=== PATIENT | female | born 1950 | race Caucasian/White ===

== ENCOUNTER → 2017-10-07 13:39 | Outpatient (CLI) | payer MEDICARE, OTHER, SELFPAY ==
--- NOTE | 2017-10-07 13:43 | BI_ITS ---
MAMMOGRAPHY - BILATERAL SCREENING REASON FOR EXAM: Female, 67 years old. Routine annual screening examination. PERTINENT HISTORY: Aunt with breast cancer. TECHNIQUE: Digital bilateral breast dexter (3D mammographic acquisition) in the CC and MLO projections. 2-D mediolateral oblique (MLO) and craniocaudad (CC) views of both breasts were obtained. CAD: Full Field Digital Mammography with Computer Added Detection was performed. COMPARISON: Comparison is made with prior study dated February 09, 2015 and September 03, 2012. FINDINGS: Breast Composition: There are scattered areas of fibroglandular density. There are no dominant masses or suspicious calcifications. Stable scattered calcifications in both breasts. No focal cluster is seen. Stable benign-appearing bilateral axillary lymph nodes. No other significant abnormalities are identified. There has been no significant change since the prior study. BI/SCREENING MAMM (CAD), BILAT IMPRESSION: Stable bilateral screening mammogram. Yearly follow-up mammogram recommended. (A) ASSESSMENT CATEGORY: BIRADS Category 2: Benign. A letter regarding these results will be sent to the patient by the facility within 30 days. Approximately 10% of breast cancers are not detected by mammography. A normal mammogram should not delay biopsy of a clinically suspicious abnormality. [id number] Electronically Signed: Abdulkadir Martell MD at 15:33 EDT Tel [phone], Service support ,
== END ==
DX: Z12.31 Encounter for screening mammogram for malignant neoplasm of breast (principal)
CPT/HCPCS: 77063; 77067

== ENCOUNTER → 2017-10-15 12:34 | Outpatient (CLI) | payer MEDICARE, OTHER, SELFPAY ==
[2017-10-15 12:54] VITALS: PULSE 103; PULSE 106; PULSE 107; PULSE 110; PULSE 74; PULSE 83; PULSE 91; PULSE 97; O2SAT 91; O2SAT 93; O2SAT 95; O2SAT 96
--- NOTE | 2017-10-16 08:01 | WT_ITS ---
PSN 6 Minute Walk Test - 6 Minute Walk Test 6 Minute Walk Test: 6 Minute Walk Test PSN:6-Minute Walk Test Start: 10/15/17 12: 53 Freq: Status: Active Protocol: [id number] Document 10/15/17 12:54 FR (Rec: 10/15/17 12:57 FR [id number]) 6 Minute Walk Test Date Performed 10/15/17 Time Performed 12:30 Height 4 ft 7 in Weight: 157 lb Weight in Pounds 157.[address]: Mary Stevenson Assistive device used: Walker Pre-test Oxygen Delivery Method Room Air Pulse Ox (%) 96 Pulse Rate (60-100 beats/min) 74 Dyspnea Shane Scale (0-10) 4 Exertion Shane Scale (6-20) 10 1st minute Oxygen Delivery Method Room Air Pulse Ox (%) 93 Pulse Rate (60-100 beats/min) 91 2nd minute Oxygen Delivery Method Room Air Pulse Ox (%) 91 Pulse Rate (60-100 beats/min) 97 3rd minute Oxygen Delivery Method Room Air Pulse Ox (%) 91 Pulse Rate (60-100 beats/min) 103 H 4th minute Oxygen Delivery Method Room Air Pulse Ox (%) 93 Pulse Rate (60-100 beats/min) 107 H 5th minute Oxygen Delivery Method Room Air Pulse Ox (%) 95 Pulse Rate (60-100 beats/min) 106 H 6th minute Oxygen Delivery Method Room Air Pulse Ox (%) 95 Pulse Rate (60-100 beats/min) 110 H Dyspnea Shane Scale (0-10) 4 Exertion Shane Scale (6-20) 12 Post-test Oxygen Delivery Method Room Air Pulse Ox (%) 95 Pulse Rate (60-100 beats/min) 83 Full Laps Walked 18 Partial Lap, Number of Tiles Walked 11 Total Distance Walked (ft) 1073 - Interpretation Interpretation: The patient ambulated 1073 feet over the course of 6 minutes on room air with use of a walker. Pretesting oxygen saturation was noted to be 96% on room air. With ambulation, the lesly oxygen saturation was 91%. In addition to evidence of exertional hypoxia, the patient did develop physiologic tachycardia with exertion. - Recommendations Recommendations: There is no indication for the use of supplemental oxygen at this time. However , close interval follow-up is recommended given the degree of oxygen desaturation noted during this study.
== END ==
PROVIDERS: Visit Provider Nurse Practitioner Acute Care
DX: J44.9 Chronic obstructive pulmonary disease, unspecified (principal)
CPT/HCPCS: 94618

== ENCOUNTER → 2017-10-26 17:08 | Outpatient (CLI) | payer MEDICARE, OTHER, SELFPAY ==
--- NOTE | 2017-10-26 17:17 | RAD_ITS ---
STUDY: X-RAY - LUMBAR SPINE REASON FOR EXAM: Female, 67 years old. Bilateral leg pain. Back pain. TECHNIQUE: 3 view(s) of the lumbar spine were obtained. COMPARISON: None FINDINGS: There is a mildly exaggerated lumbar lordosis. There is no substantial scoliosis. There is mild anterolisthesis of L4 and L5. The alignment is otherwise preserved. There is multilevel endplate spondylosis of the lumbar vertebrae. There is sclerosis at the L1-2 disc space with marked narrowing. There is multi-level degenerative disc disease with multi-level disc space narrowing. There is no evidence of acute fracture or loss of vertebral axial height. There is atherosclerotic calcification of the abdominal aorta without a demonstrated aneurysm. Cholecystectomy clips are seen in the right upper quadrant. RAD/Lumbar Spine 2 or 3 Views IMPRESSION: Degenerative changes of the spine, as detailed above. Electronically Signed: Jesse Don DO at 19:01 EDT Tel [phone], Service support ,
== END ==
PROVIDERS: Visit Provider Anesthesiology Pain Medicine
DX: M54.9 Dorsalgia, unspecified (principal); M79.606 Pain in leg, unspecified
CPT/HCPCS: 72100

== ENCOUNTER 2017-12-22 14:00 | Outpatient (RCR) | payer MEDICARE, OTHER, SELFPAY ==
--- NOTE | 2017-12-09 09:26 | HP.PTEVAL_ITS ---
Patient's Visit Information BINA GOLDSTEIN is a 67 year old F referred to Physical Therapy by Laura Stevens with a diagnosis of low back and R leg pain. Date of Evaluation: 11/26/17 Physical Therapist: Jose Ramon Seay - Visit Plan Frequency: 2x /Week Duration: 4 Weeks Plan: Try to progress ex as able . Asses how pt tolerated the ES RX next session and what relief it gave her. - Subjective Subjective: Pt. is here today for her initial evaluation with diagnosis of low back and R leg pain. Symptoms started 44 years ago when she first fell. Pt. reports difficulty sleeping secondary to pain. Pt. does having occassional N/T in both legs. 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 Symptoms worsen: walking, lifting, sitting for extended periods of time. SYmptoms improve:nothing, I just live with it. Pt. was trying exercise classes until they became too painful to complete. Pt. does report RLE weakness and imbalance. No changes in B/B. Pt. did have xray, but pt. is unsure of results. No MRI yet. Pt. did have cortizone injection a few weeks ago, postiive results. Pt. reports I do okay as long as I take my time. Pt. is hopeful to reduce symptoms in order to get back to all ADLs and recreational activities without limitations. - Pain R leg Pain Intensity (Out of 10): 6 Pain Intensity Range: 4, 8 Lumbar spine Pain Intensity (Out of 10): 6 Pain Intensity Range: 4, 10 - Objective POSTURE: Pt. has FH posture, rounded shoulders, overall slouched posture, sway back in stance. PALPATION: Pt. has increased pain at lumbar erector spinea bilaterally, increased pain at T10-S1 spinous process with spring testing ( hypomobility noted throughout). ROM: LUMBAR SPINE: flexion- min loss increase NW, ext mod loss increase NW, SB R min loss increase NW, SB L min loss increase NW, R rotation mod loss increase NW, L rotation mod loss increase NW. Pt. has increased pain with all lumbar motions. MMT: RLE- ankle/knee 5/5 throughout; hip- 4/5, abd 4/5, ext 4+/5. LLE_ ankle/knee 5/5 throughout; hip- 4+/5, throughout. Core- poor. GAIT: Pt. ambualtes with antalgic pattern. Pt. has increased postural sway bilaterally, reports increased pain during R stance phase. STAIRS: PT. completes with step to pattern with BHR, increased pain throughout. - Goals Goal 1:: Pt. to be I with HEP. Goal Time Frame: 4-6 Weeks Goal 2:: Pt. to have increased core and hip strength by 1/2 garde throughout. Goal Time Frame: 4-6 Weeks Goal 3:: Pt. to ambulate 300+ ft. with 1-2/10 pain in lumbar spine and R leg. Goal Time Frame: 4-6 Weeks Goal 4:: Pt. to sleep throughout the night with 0-2/10 pain in lumbar spine and R leg. Goal Time Frame: 4-6 Weeks Goal 5:: Pt. to complete all ADLs with 0-2/10 pain in lumbar spine and RLE. Goal Time Frame: 4-6 Weeks - Rehabilitation Potential Physical Therapy Diagnosis: Pt. has signs and symptoms consistent with low back and R leg pain. Pt. has increased muscle spasming, poor posture, decreased core and hip strength. Pt. would benefit from PT ot increase lumbar ROM, increased BLE and core strength and improve stability with gait. Rehabilitation Potential: Fair - Anticipated Interventions Patient/Client Instruction: Educate patient on: Condition, Plan of Care, Risk Factors, Benefits of Fitness Program For the Purpose of:: To improve decision making, To facilitate caregiver knowledge, To improve self management, To prevent re-injury, To improve ability to perform tasks related to life management, To improve tolerance to ADL's Therapeutic Exercise to Include: Strength training, Power training, Body mechanics, Postural training, Flexibilty training, Gait and locomotor training, Passive ROM, Active ROM, Dynamic Lumbar Stabilization, Tom Exercises For the Purpose of:: To decrease pain, To increase ROM, To improve nutrient delivery to tissue, To increase oxygenation perfusion, To improve muscle performance and motor function, To improve ability to perform ADL's, To increase tolerance to activity/condition/position, To improve gait and locomotor functions, To improve health of tissue, To decrease soft tissue restriction, To improve endurance, To improve balance Manual Therapy Techniques to Include: Petrissage, Trigger point massage, Mobilization, Functional dry needling, Soft tissue mobilization For the Purpose of:: To decrease pain, To increase ROM, To improve nutrient delivery to tissue, To increase oxygenation perfusion, To improve muscle performance and motor function IF ES: Yes Cryotherapy (ice pack, ice massage): Yes Thermo therapy (hot pack): Yes Ultrasound (thermal/non thermal): Yes For the Purpose of:: To decrease pain, To increase ROM Thank you for the opportunity to evaluate your patient. For Medicare and Medicare HMO plans, please review the plan of care and approve it. It will need to be FAXED BACK to us at [phone] for Medicare purposes. Please let me know if there are questions or concerns regarding this plan of care. Physician Signature: Date:
--- NOTE | 2018-01-04 11:56 | HP.PTDCSUM ---
HP - PT D/C Summary It has been my pleasure to treat BINA GOLDSTEIN under orders from Laura Stevens, for the diagnosis of low back and R leg pain for a total of 9 visit(s). Discharge Date: 12/22/17 Please see the following information for a summary of their discharge status. - Subjective Subjective: Pt. reports being about 50% better overall. Pt. reports at times I do really well, and other times my back really bothers me. Pt. reports being HEP compliant with all exercises given to her at this point in time. Pt. reports having greatest relief with TENS unit. - Pain R leg Pain Intensity (Out of 10): 3 Lumbar spine Pain Intensity (Out of 10): 3 - Overall Improvement % Improvement: 50 - Objective Objective/Function: Pt more tolerant of exercises and stretches. Pt reported having 0/10 LBP after ex's today. Improving. - Goals Goal 1:: Pt. to be I with HEP. Goal Progress: Goal Met Goal 2:: Pt. to have increased core and hip strength by 1/2 garde throughout. Goal Progress: Goal Met Goal 3:: Pt. to ambulate 300+ ft. with 1-2/10 pain in lumbar spine and R leg. Goal Progress: Progressing Goal 4:: Pt. to sleep throughout the night with 0-2/10 pain in lumbar spine and R leg. Goal Progress: Progressing Goal 5:: Pt. to complete all ADLs with 0-2/10 pain in lumbar spine and RLE. Goal Progress: Progressing - Plan Plan: LUMBAR ROM- flexion nil/min loss NE, ext mod loss icnrease NW, SB min loss bilat NE, rotation min loss bilat NE. Pt. has normal hip ROM, but continues to have tight B HS. MMT- RLE- ankle 5/5 throughout; knee- ext 4/5, flexion 4/5; hip- flexion 4/5, adb 4/5, ext 4/5. LLE- ankle 5/5 throughout; knee- ext 4/5, flexion 4/5; hip- flexion 4/5, abd 4/5, ext 4/5. COre strength poor+. GAIT: Pt is able to ambulate without AD 500+ ft. this date, but 3-4/10 pain in lumbar spine. Pt. is progressing with flexion based exercises and core strengthening. Pt. has used TENS unit with positive results and would benefit from a personal unit for home use. - D/C Information Discharge Comments: Pt. was seen for her low back and R leg pain. Pt. is only having pain in R hip and low back at this point in time. Pt. has progressed with flexion based exercises and core strengthening. Pt. also had decent relief with use of TENS unit. Pt. requested having home unit. I put in request with physician to see if insurance would cover. Pt. will be DC from PT to [facility] for core strengthening and flexion based exercises. If there are questions or concerns regarding this patient's physical therapy, please feel free to call me at [phone]. Thank you for the referral of this patient. Sincerely, Jose Ramon Seay
== END 2017-12-22 19:00 | disposition home or self-care (01) ==
LOC: PT 14:00
PROVIDERS: Visit Provider Anesthesiology Pain Medicine
DX: M54.9 Dorsalgia, unspecified (principal); M79.606 Pain in leg, unspecified
CPT/HCPCS: 97014; 97110; 97162; G0283

== ENCOUNTER 2018-02-17 12:47 | Inpatient (IN) | payer MEDICARE, OTHER, SELFPAY ==
[2018-02-17] VITALS (15 sets, daily range): BP systolic 150–183; BP diastolic 59–96; PULSE 70–113; RESP 12–30; TEMP 36.3–37; O2SAT 94–99; BMI 39.4; BMI 37.8
--- NOTE | 2018-02-17 13:44 | ED.VISSUMM ---
- ER Visit Summary Date of Service: 02/17/18 Chief Complaint: Shortness of breath History of Present Illness: The patient is a 67 F history of insulin-dependent diabetes, hypertension, COPD. Uses BiPAP at home and sleep. Normally not on O2. States last few days with the hot humid weather she has had increasing shortness of breath. Treated herself this morning with a nebulizer. Still feels short of breath. Nonproductive cough. No fever. No chest pain. No leg pain or swelling. No hemoptysis. No DVT nor PE history. No risk factors. Physical Examination: Older female vital signs are stable her pulse ox is 94% when I am in the room at 89. Off of O2. H EENT exam unremarkable. Neck nontender. Lungs coarse breath sounds. Prolonged expiratory phase. Scattered wheezes. No rales or rhonchi. Equal symmetrical. Heart regular rate and rhythm no murmur rate of soft nontender. Moving all 4 extremities. Calves nontender, no edema nor cords. Neurologically she is awake alert with no focal motor deficits. Rectal exam is brown stool no gross blood. No melena. Done with a female nurse present in the room Test Results: Chest x-ray chronic changes the radiologist is read mild pulmonary edema these may be chronic changes. EKG sinus rhythm rate of 93 with a bifascicular block. Unchanged from her prior EKG from December 2014. CBC does show an anemia with a globe at 9.4 which is trending down over the last several years. Chemistries are unremarkable creatinine is 1. Gap is 10. Troponin is slightly elevated 0.068 which may be up a cardiac event more likely from her COPD and hypoxia. Emergency Department Course and Treatment: Dyspnea history of COPD. Will be treated with IV Solu-Medrol and aerosol treatments. Treatment Plan: Patient is doing better after her aerosols and IV Solu-Medrol repeat exam at 1558. I discussed with her and family and are comfortable with the admission. I have already spoken to the hospitalist about the admission. Disposition: admission Impression: Acute exacerbation of COPD Abnormal troponin Hypoxia Acute on chronic anemia This note was generated with [employer] dictation software. It may contain incorrect words, spelling, and punctuation that were not noted in review of the chart prior to signing ED Disposition - Plan for ED Patient: Chief Complaint: Shortness of Breath Referrals: [facility] [Primary Care Provider] -
[2018-02-17] MEDS: Ipratropium/Albuterol Sulfate 3 ML AMPUL.NEB INHALATION (13:58)
[2018-02-17] MEDS: Albuterol 2.5 MG/3 ML VIAL.NEB. INHALATION ×2 (13:59→19:27)
[2018-02-17 14:19] LABS: Absolute Lymphocyte Count 1.35 X10^3/ul (0.83-4.51); Absolute Neutrophil Count 8.3 X10^3/uL (2.0-7.7); Basophil% 0.7 % (0-1); Eosinophils% 1.9 % (0-5); Hematocrit 30.3 % (37-47); Hemoglobin 9.4 g/dl (12.0-15.0); Lymphocyte # 1.35 X10^3/ul (4.0); Mean Corpuscular Hgb 29.4 pg (27.0-32.0); Mean Corpuscular Volume 94.7 fL (81-99); Mean Platelet Vol. 9.2 fl (6.2-12.0); Monocyte% 4.4 % (0-10); Neutrophil % 79.8 % (47-70); Platelet Count 316 K/mm3 (150-450); RBC Distribution Width CV 13.6 % (11.6-14.6); White Blood Count 10.4 K/mm3 (4.4-11.0)
[2018-02-17 14:20] LABS: Basophil# 0.07 X10^3/uL; Monocyte# 0.46 X10^3/uL
[2018-02-17 14:21] LABS: POSITIVE COUNT NO; POSITIVE DIFFERENTIAL NO; POSITIVE MORPHOLOGY NO
[2018-02-17 14:34] LABS: Anion Gap 10 (5-15); BUN 26 mg/dL (7-18); BUN/Creat Ratio 23.9 RATIO (10-20); Calcium,Total 8.8 mg/dL (8.5-10.1); Chloride 105 mmol/L (98-107); Creatinine, Serum 1.09 mg/dL (0.55-1.02); EST Glomerular Filtration Rate 53 mL/min (>60); Est Glom Filt Rate - Afr Amer 64 mL/min (>60); Estimated Creatinine Clearance 60.88 ml/min; Glucose 244 mg/dL (74-106); Potassium 4.4 mmol/L (3.5-5.1); Sodium Level 140 mmol/L (136-145)
[2018-02-17] MEDS: MethylPREDNISolone 125 MG/2 ML Vial IV (14:47)
--- NOTE | 2018-02-17 15:59 | NURSING ---
DR BEAVER FOR DR NICE
--- NOTE | 2018-02-17 16:06 | NURSING ---
MED SURG COPD FLARE, HYPOXIA, ABNORMAL TROP, ANEMIA SD
--- NOTE | 2018-02-17 16:15 | PCM.HP.STD ---
<Bryce Barney - Last Filed: 02/17/18 16:15> Problem List (1) COPD (chronic obstructive pulmonary disease) Status: Acute (2) CHF (congestive heart failure) Status: Acute (3) Obesity Status: Chronic (4) [place] (obstructive sleep apnea) Status: Chronic (5) Hyperlipidemia Status: Chronic (6) Type II diabetes mellitus Status: Chronic History of Present Illness Date of Admission: 02/17/18 Chief Complaint: SOB The patient is a 67 year old F with a PmHx of COPD pt of Dr. Mason, [place] on bipap, DMt2, HLD, HTN, who presents to the ER with 1 day hx of SOB. She woke up from sleep very SOB and wheezing. She tried to use her aerosols (has nebulizer) with no relief. She did not feel SOB prior to today. She has a cough but only with nebulizer treatment, and this is common for her -= it is nonproductive. No fever or chills. She cannot lay flat due to SOB. She also has had chest discomfort today described as a 5/10 midsternal tightness, nonradiating. She has mild LE edema. No dizziness, LH, no palpitations. She denies a hx of CAD or CHF. She had a stress test several years ago that was reportedly negative. She does have [place] and uses a BiPAP at night - reportedly compliant. [] Past Medical History Past Medical History (Chronic Problems): Chronic Problems (Last Reviewed 09/17/17 @ 18:16 by Mary Stevenson NP-[place]) Obesity (Chronic) [place] (obstructive sleep apnea) (Chronic) Morbid obesity (Chronic) Hyperlipidemia (Chronic) Seasonal allergies (Chronic) Depressive disorder (Chronic) Arthritis (Chronic) Hypoxia (Chronic) Asthma (Chronic) Chronic respiratory failure (Chronic) Type II diabetes mellitus (Chronic) Medical History: Medical History (Last Reviewed 09/17/17 @ 18:16 by Mary Stevenson NP-C) Morbid obesity (Chronic) E66.01 Hyperlipidemia (Chronic) E78.5 Seasonal allergies (Chronic) J30.2 Depressive disorder (Chronic) F32.9 Arthritis (Chronic) M19.90 Hypoxia (Chronic) R09.02 Asthma (Chronic) J45.909 Chronic respiratory failure (Chronic) J96.10 Chest pain (Acute) R07.9 COPD (chronic obstructive pulmonary disease) (Chronic) J44.9 Type II diabetes mellitus (Chronic) E11.9 Allergies meperidine HCl [From Demerol] Allergy (Verified 09/17/17 13:12) Other Penicillins Allergy (Verified 09/17/17 13:12) Rash Home Medications: Ambulatory Orders Medication Instructions Recorded Acetaminophen [Tylenol Tablet] 650 mg PO Q4H PRN PRN #0 tab 01/13/15 Atorvastatin Calcium [Lipitor] 20 mg PO QHS tab 01/13/15 Budesonide/Formoterol 160/4.5 2 puff INHALATION BID inhaler 01/13/15 [Symbicort 160/4.5 Mcg Inhaler (SP)] Ipratropium [place] 0.06% 2 spray NASAL TID PRN #0 nasal.sry 01/13/15 [ATROVENT NASAL SPRAY] Losartan Potassium [Cozaar] 25 mg PO DAILY tab 01/13/15 Nitroglycerin [Nitrostat] 0.4 mg SUBLINGUAL Q5M PRN #100 tab 01/13/15 Albuterol Aerosols [Ventolin 2.5 mg INHALATION Q4HWA.RT 02/17/18 Aerosols] Aspirin E.C. [Ecotrin] 81 mg PO DAILY@0800 02/17/18 Insulin Regular, Human [Novolin R] 18 units SQ BID 02/17/18 Surgical History: Surgical History (Last Reviewed 09/17/17 @ 18:16 by KURT Blake) History of cholecystectomy (Resolved) Z90.49 History of tonsillectomy (Resolved) Z90.89 Surgical History: cholecystectomy, tonsillectomy Psychiatric History: No pertinent psych hx RADIO DISPATCHER History: No pertinent RADIO DISPATCHER history Lives: Alone Smoking Status: Never smoker Tobacco Use: Non-smoker, - - secondhand smoke exposure father and Alcohol: None Drugs: None - *Family History Maternal Family History: Family History (Last Reviewed 09/17/17 @ 18:16 by KURT Blake) Mother Hypertension Heart disease Hyperlipidemia Father Myocardial infarction Heart disease Emphysema lung Grandmother Diabetes Grandfather Epilepsia Alcoholism History Items: No pertinent history Paternal Family History: Family History (Last Reviewed 09/17/17 @ 18:16 by KURT Blake) Mother Hypertension Heart disease Hyperlipidemia Father Myocardial infarction Heart disease Emphysema lung Grandmother Diabetes Grandfather Epilepsia Alcoholism History Items: Heart Disease - Father at age of 63 because of heart attack. Review of Systems Constitutional: Denies: Chills, Fever, Weight Change HEENT: Denies: Head Aches, Sinus Congestion, Sinus Drainage Cardiovascular: Reports: Chest Tightness, Edema, Orthopnea, Paroxysmal Noc. Dyspnea. Denies: Chest Pain, Heaviness, Light Headedness, Palpitations, Syncope Respiratory: Reports: Cough, Shortness of Breath, Shortness of breath at rest, Shortness of breath upon exertion, Wheezing. Denies: Pleuritic Pain, Sputum production Gastrointestinal: Denies: Abdominal Pain, Nausea, Vomiting Genitourinary: Denies: Dysuria Musculoskeletal: Denies: Joint Pain, Joint Tenderness Skin: Denies: Rash, Wounds Neurological: Denies: Numbness, Tingling, Focal weakness Psychiatric: Denies: Anxiety, Depression, Homicidal Ideations, Suicidal Ideations Hematologic/ Lymphatic: Denies: Easy Bruising, Easy Bleeding VTE Information - Inpt Only VTE Present on Admission: No VTE Mechan Device Prophylaxis: None VTE Pharm Prophylaxis ordered?: Yes Patient Problems: Active and Suspected Problems (Last Reviewed 09/17/17 @ 18:16 by Mary Stevenson NP-C) CHF (congestive heart failure) (Acute) - Physical Exam General: Alert, Oriented x3, Cooperative HEENT: Atraumatic, PERRLA, EOMI, Normocephalic Neck: Supple, No JVD, Negative Carotid Bruits Lungs: Clear to auscultation, Normal air movement, Rales Cardiovascular: Regular rate, No murmurs Abdomen: Bowel Sounds Present, Soft, Non Tender Extremities: No edema, Capillary Refill Less than 3 Seconds, Edema - 1-2 + pitting edema BLE Skin: No rashes, No breakdown Musculoskeletal: No Tenderness to Palpation of Joints or Extremities Neurological: Cranial nerves II-XII grossly intact Psych/Mental Status: Normal Affect, Appropriate, Alert and oriented to time, place, person, mood and affect Vital Signs Temp Pulse Resp BP Pulse Ox 97.8 F 80 18 155/80 H 95 02/17/18 12:50 02/17/18 16:14 02/17/18 16:14 02/17/18 16:14 02/17/18 16:14 Oxygen Delivery Method Room Air Weight: 169 lb 12.095 oz Body Mass Index (BMI) 39.4 Laboratory Tests Past 24 Hrs 02/17/18 02/17/18 14:05 14:05 WBC 10.4 RBC 3.20 L Hgb 9.4 L Hct 30.3 L MCV 94.7 MCH 29.4 MCHC 31.0 L RDW 13.6 RDW Differential 47.0 H Plt Count 316 MPV 9.2 Immature Gran % (Auto) 0.200 Neut % (Auto) 79.8 H Lymph % (Auto) 13.0 L [place] % (Auto) 4.4 Eos % (Auto) 1.9 Baso % (Auto) 0.7 Absolute Neuts (auto) 8.3 H Absolute Lymphs (auto) 1.35 Total Counted Not Reportable Sodium 140 Potassium 4.4 Chloride 105 Carbon Dioxide 25.0 Anion Gap 10 BUN 26 H Creatinine 1.09 H Estim Creat Clear Calc 60.88 Est GFR (MDRD) Af Amer 64 Est GFR (MDRD) Non-Af 53 L BUN/Creatinine Ratio 23.9 H Glucose 244 H Calcium 8.8 Troponin I 0.068 H Assessment/Plan All Active Problems (Last Reviewed 09/17/17 @ 18:16 by Mary Stevenson, [employer]-C) CHF (congestive heart failure) (Acute) History of cholecystectomy (Resolved) History of tonsillectomy (Resolved) Chest pain (Acute) COPD (chronic obstructive pulmonary disease) (Acute) 1. Acute CHF exacerbation, possible COPD exacerbation - CXR c/w CHF. + orthopnea and PND, + LE edema, rales on exam, no wheezing. Start lasix. Provide solumedrol and duonebs. Check BNP, echocardiogram. No leukocytosis or fever. Measure I/O, weights, sodium/fluid restrict, Incentive spirometer. Stable on RA. 2. Chest pain - indeterminate troponin. EKG with RBBB, bifasicular block. Repeat EKG in AM. Cycle troponin. Consider stress test or cardiology c/s. Continue aspirin, statin, arb. +family hx, smoke exposure. 3. [place] - continue BiPAP 4. DMt2 with obesity - continue long acting + SSI. 5. HTN - somewhat elevated in ER, trend. 6. HLD - statin 7. Mildly elevated creatinine - trend with lasix therapy. DVT ppx: heparin DC planning: lives alone, small possibility she may need o2 homegoing This patient was seen by Bryce Barney PA-C under the supervision of Doctor Ron. <Tommy Velasquez F - Last Filed: 02/17/18 18:14> History of Present Illness The patient is a 67 year old F [] Past Medical History Medical History: Medical History (Last Reviewed 09/17/17 @ 18:16 by SHAMAR BlakeC) Morbid obesity (Chronic) E66.01 Hyperlipidemia (Chronic) E78.5 Seasonal allergies (Chronic) J30.2 Depressive disorder (Chronic) F32.9 Arthritis (Chronic) M19.90 Hypoxia (Chronic) R09.02 Asthma (Chronic) J45.909 Chronic respiratory failure (Chronic) J96.10 Chest pain (Acute) R07.9 COPD (chronic obstructive pulmonary disease) (Chronic) J44.9 Type II diabetes mellitus (Chronic) E11.9 Allergies meperidine HCl [From Demerol] Allergy (Verified 09/17/17 13:12) Other Penicillins Allergy (Verified 09/17/17 13:12) Rash Surgical History: Surgical History (Last Reviewed 09/17/17 @ 18:16 by SHAMAR BlakeC) History of cholecystectomy (Resolved) Z90.49 History of tonsillectomy (Resolved) Z90.89 - *Family History Maternal Family History: Family History (Last Reviewed 09/17/17 @ 18:16 by KURT Blake) Mother Hypertension Heart disease Hyperlipidemia Father Myocardial infarction Heart disease Emphysema lung Grandmother Diabetes Grandfather Epilepsia Alcoholism Paternal Family History: Family History (Last Reviewed 09/17/17 @ 18:16 by KURT Blake) Mother Hypertension Heart disease Hyperlipidemia Father Myocardial infarction Heart disease Emphysema lung Grandmother Diabetes Grandfather Epilepsia Alcoholism - Physical Exam Vital Signs Temp Pulse Resp BP Pulse Ox 97.3 F L 93 20 H 173/91 H 97 02/17/18 17:02 02/17/18 17:02 02/17/18 17:02 02/17/18 17:04 02/17/18 17:02 Oxygen Delivery Method Room Air Weight: 162 lb 8 oz Body Mass Index (BMI) 37.8 Laboratory Tests Past 24 Hrs 02/17/18 02/17/18 17:12 17:12 WBC 13.2 H RBC 3.27 L Hgb 9.6 L Hct 31.0 L MCV 94.8 MCH 29.4 MCHC 31.0 L RDW 13.6 RDW Differential 46.9 H Plt Count 316 MPV 9.1 Immature Gran % (Auto) 0.100 Neut % (Auto) 92.8 H Lymph % (Auto) 5.0 L [place] % (Auto) 1.4 Eos % (Auto) 0.5 Baso % (Auto) 0.2 Absolute Neuts (auto) 12.3 H Absolute Lymphs (auto) 0.66 L Total Counted Not Reportable Troponin I Pending POC Glucose 02/17/18 17:25 POC Glucose 238 H Assessment/Plan Addendum: Dr. Velasquez I personally examined the patient and reviewed the chart. I agree with the above. Patient is a 67-year-old female presenting with a 1-2 day history of shortness of breath and increased leg swelling. He states that this is a common occurrence when she gets hot and humid outside. She did notice today that she also had some wheezing earlier prior to coming to the ER. He did do a breathing treatment that she has at home and she did not feel like that helped. Denies fevers, chills but does have increased shortness of breath. General: Alert, Oriented x3, Cooperative, No apparent distress HEENT: Atraumatic, EOMI, Normocephalic Oral: Moist Mucosa Neck: Supple, No JVD Lungs: Clear to auscultation, Normal air movement, No rhonchi, No wheeze, No rales, diminished at the bases Cardiovascular: Regular rate, Regular Rhythm, Normal S1, Normal S2, No murmurs Abdomen: Soft, Non Tender, Non-Distended, No Hepato-splenomegaly Extremities: 1-2+ pitting edema, Capillary Refill Less than 3 Seconds Skin: No rashes, No breakdown Musculoskeletal: No Tenderness to Palpation of Joints or Extremities Psych/Mental Status: Normal Affect, Appropriate\ 1. Possible CHF/COPD exacerbation/Chest Pain - Will plan for an echo given the edema - Dose of IV lasix - Solumedrol 40 mg IV TID - Trend troponins, EKG is not ischemic - Will resume her home inhalers 2. DM2 - Restart her home insulin and place her on SSI given the steroids DVT: Heparin Code Visit Inpatient E&M: 13659 Init Hosp L3
[2018-02-17 17:40] LABS: Bedside Glucose 238 mg/dL (70-110)
[2018-02-17 17:52] LABS: Absolute Lymphocyte Count 0.66 X10^3/ul (0.83-4.51); Absolute Neutrophil Count 12.3 X10^3/uL (2.0-7.7); Basophil# 0.03 X10^3/uL; Basophil% 0.2 % (0-1); Eosinophil# 0.06 X10^3/uL; Eosinophils% 0.5 % (0-5); Hemoglobin 9.6 g/dl (12.0-15.0); Lymphocyte # 0.66 X10^3/ul (4.0); Mean Corpuscular Hgb 29.4 pg (27.0-32.0); Mean Corpuscular Volume 94.8 fL (81-99); Mean Platelet Vol. 9.1 fl (6.2-12.0); Monocyte# 0.18 X10^3/uL; Monocyte% 1.4 % (0-10); Neutrophil # 12.29 X10^3/uL (2.7-7.7); Neutrophil % 92.8 % (47-70); POSITIVE COUNT NO; POSITIVE DIFFERENTIAL NO; POSITIVE MORPHOLOGY NO; Platelet Count 316 K/mm3 (150-450); RBC Distribution Width CV 13.6 % (11.6-14.6); RBC Distribution Width SD 46.9 fl (35.1-43.9); Red Blood Count 3.27 M/mm3 (4.2-5.4); White Blood Count 13.2 K/mm3 (4.4-11.0)
[2018-02-17] MEDS: Furosemide 40 MG/4 ML Vial IV (18:14)
[2018-02-17] MEDS: Insulin Lispro 100 UNIT/ML INSULN.PEN SQ (18:25)
[2018-02-17] MEDS: Glucerna Shake 120 ML LIQUID PO ×2 (18:25→21:19)
[2018-02-17] MEDS: Budesonide Respules 0.5 MG/2 ML AMPUL.NEB. INHALATION (19:27)
[2018-02-17 20:59] LABS: Prothrombin Time (Protime)PT. 12.8 SECONDS (11.7-14.9)
[2018-02-17 21:00] LABS: Partial Thromboplast Time 24.9 Seconds (24.1-36.2)
--- NOTE | 2018-02-17 21:06 | NURSING ---
Critical value called to Sree Marroquin, Troponin 0.614
[2018-02-17] MEDS: Heparin Injection (Vial) 5,000 UNIT/ML VIAL 4000 UNIT IV (21:16)
[2018-02-17] MEDS: Clopidogrel Bisulfate 300 MG Tablet PO (21:17)
[2018-02-17] MEDS: 0.9% NaCl Peripheral Flush Adult/Peds IV ×2 (21:17→22:57)
[2018-02-17] MEDS: Atorvastatin Calcium 20 MG Tablet PO (21:18)
[2018-02-17] MEDS: Insulin Lispro 100 UNIT/ML INSULN.PEN 20 UNIT SC (22:15)
[2018-02-17 22:56] LABS: Bedside Glucose 459 mg/dL (70-110)
[2018-02-17] MEDS: LORazepam 2 MG/ML Syringe 0.5 MG IV (22:57)
[2018-02-18] VITALS (31 sets, daily range): BP systolic 112–172; BP diastolic 44–86; PULSE 64–102; RESP 12–24; TEMP 36.3–37.4; O2SAT 95–100; BMI 36.7
[2018-02-18 04:16] LABS: Anion Gap 9 (5-15); BUN 31 mg/dL (7-18); BUN/Creat Ratio 25.4 RATIO (10-20); Chloride 104 mmol/L (98-107); Creatinine, Serum 1.22 mg/dL (0.55-1.02); EST Glomerular Filtration Rate 47 mL/min (>60); Est Glom Filt Rate - Afr Amer 56 mL/min (>60); Estimated Creatinine Clearance 52.07 ml/min; Glucose 260 mg/dL (74-106); Partial Thromboplast Time 49.8 Seconds (24.1-36.2); Potassium 4.4 mmol/L (3.5-5.1); Sodium Level 140 mmol/L (136-145)
[2018-02-18] MEDS: 0.9% NaCl Peripheral Flush Adult/Peds IV ×2 (06:02→20:28)
[2018-02-18 07:00] LABS: Bedside Glucose 199 mg/dL (70-110)
[2018-02-18] MEDS: Albuterol 2.5 MG/3 ML VIAL.NEB. INHALATION (07:04)
[2018-02-18] MEDS: Budesonide Respules 0.5 MG/2 ML AMPUL.NEB. INHALATION ×2 (07:04→19:00)
--- NOTE | 2018-02-18 08:05 | PCM.PROGNOTE ---
Patient Problems: Active and Suspected Problems (Last Reviewed 09/17/17 @ 18:16 by Mary Stevenson NP-C) CHF (congestive heart failure) (Acute) Subjective: Chief complaint: Follow-up after admission for acute COPD exacerbation with acute on chronic hypoxic respiratory failure, probable acute CHF and ST elevation MS. Patient seen and examined. No acute events overnight. This morning, she reported that her breathing is improved. She still complaining of dry cough, minimal sputum. She denies any chest pain. At home, she has been on BiPAP at night only. She is not on home oxygen. Her symptoms started yesterday all of a sudden with shortness of breath on exertion, got worse and became even at rest and associated with dry cough. She denied fever or chills. This morning, she is afebrile, heart rate stable, blood pressure slightly elevated, pulse ox is 98% on 3 L. - Physical Exam General: Alert, Oriented x3, Cooperative, - - Moderately short of breath. HEENT: Atraumatic, PERRLA, EOMI, Normocephalic Oral: Moist Mucosa, No Gingival or Mucosal Lesions/ Ulcerations Neck: Supple, No JVD, Negative Carotid Bruits, Trachea Midline, Thyroid Normal Size and Texture Lungs: No wheeze, Diminished, Rales, Rhonchi, Short of Breath, - - Decreased breath sounds bilateral, bilateral basal crackles, rhonchi. Cardiovascular: Regular rate, Regular Rhythm, Normal S1, Normal S2, PMI Normal Abdomen: Bowel Sounds Present, Soft, Non Tender, Non-Distended, No Hepato-splenomegaly Extremities: No clubbing, No cyanosis, Edema - Trace edema. Skin: No rashes, No breakdown Lymphatic: No Cervical, Supraclavicular, or Inguinal Adenopathy Neurological: Cranial nerves II-XII grossly intact, Motor Exam 5/5 strength throughout Psych/Mental Status: Normal Affect, Appropriate, Alert and oriented to time, place, person, mood and affect Vital Signs Temp Pulse Resp BP Pulse Ox 97.3 F L 77 16 169/84 H 98 02/18/18 04:26 02/18/18 07:05 02/18/18 07:05 02/18/18 04:26 02/18/18 07:05 Oxygen Flow Rate (L/min) 3 Oxygen Delivery Method Nasal Cannula Weight: 158 lb 11.725 oz Body Mass Index (BMI) 37.8 Intake and Output for Last 24 Hours 02/16/18 02/17/18 02/18/18 23:59 23:59 23:59 Intake Total 399.7 / 399.7 59.4 / 59.4 Output Total 2550 / 2550 375 / 375 Balance -2150.3 / -2150.3 -315.6 / -315.6 Laboratory Tests Past 24 Hrs 02/17/18 02/17/18 02/17/18 17:12 17:12 20:15 WBC 13.2 H RBC 3.27 L Hgb 9.6 L Hct 31.0 L MCV 94.8 MCH 29.4 MCHC 31.0 L RDW 13.6 RDW Differential 46.9 H Plt Count 316 MPV 9.1 Immature Gran % (Auto) 0.100 Neut % (Auto) 92.8 H Lymph % (Auto) 5.0 L [place] % (Auto) 1.4 Eos % (Auto) 0.5 Baso % (Auto) 0.2 Absolute Neuts (auto) 12.3 H Absolute Lymphs (auto) 0.66 L Total Counted Not Reportable PT INR APTT Sodium Potassium Chloride Carbon Dioxide Anion Gap BUN Creatinine Estim Creat Clear Calc Est GFR (MDRD) Af Amer Est GFR (MDRD) Non-Af BUN/Creatinine Ratio Glucose Calcium Troponin I 0.659 H* 0.614 H* 02/17/18 02/18/18 02/18/18 20:15 03:34 03:34 WBC RBC Hgb Hct MCV MCH MCHC RDW RDW Differential Plt Count MPV Immature Gran % (Auto) Neut % (Auto) Lymph % (Auto) [place] % (Auto) Eos % (Auto) Baso % (Auto) Absolute Neuts (auto) Absolute Lymphs (auto) Total Counted PT 12.8 INR 1.0 APTT 24.9 49.8 H Sodium 140 Potassium 4.4 Chloride 104 Carbon Dioxide 27.0 Anion Gap 9 BUN 31 H Creatinine 1.22 H Estim Creat Clear Calc 52.07 Est GFR (MDRD) Af Amer 56 L Est GFR (MDRD) Non-Af 47 L BUN/Creatinine Ratio 25.4 H Glucose 260 H Calcium 9.0 Troponin I POC Glucose 08/30/18 08/29/18 08/29/18 06:52 21:27 17:25 POC Glucose 199 H 459 H* 238 H Clinical Impression(s) from Imaging Studies Chest X-Ray 02/17/18 13:42 IMPRESSION: Findings in keeping with a mild degree of CHF. Mild cardiomegaly. Electronically Signed: Abdulkadir Martell MD at 14:23 EDT Tel [phone], Service support , Medical Necessity - Tobacco Use Smoking Status: Never smoker Tobacco Use: Non-smoker Assessment/Plan All Active Problems (Last Reviewed 09/17/17 @ 18:16 by Mary Stevenson, MAYTE-[place]) CHF (congestive heart failure) (Acute) This is a 67 years old female patient presented to the emergency department because of shortness of breath and she was admitted as a case of acute COPD exacerbation complicated by acute on chronic hypoxic respiratory failure, found to have acute non-ST elevation MS as well as probable acute CHF. #1 acute COPD exacerbation/acute on chronic hypoxic respiratory failure: She is on bronchodilators and IV steroids as well as inhaled steroids. A chest x-ray showed probable bilateral pulmonary vascular congestion, fluid in the fissure on the right lung, mild cardiomegaly. No acute infiltrate. Patient reported some improvement in her symptoms. She is afebrile, heart rate stable, blood pressure slightly elevated, pulse ox is 98% on 3 L. She was on BiPAP overnight. Plan: Change albuterol nebulizer as needed, start DuoNeb every 4 hours, incentive spirometer, chest physiotherapy, ABG, continue other treatment, PT OT evaluation and treatment. #2 acute non-ST elevation MS: Troponin is elevated. EKG revealed normal sinus rhythm with right bundle branch block, no acute ST elevation. Patient denied any chest pain. She does not have history of CAD or CHF but she has risk factors for CAD. This might indicate underlying CAD. She is on aspirin, statins, losartan and IV heparin. 2D echocardiogram ordered. Cardiology consulted. Plan to start beta-blockers, awaiting cardiology recommendations. #3 probable acute CHF: This is based on symptoms of shortness of breath, trace edema and chest x-ray findings. She never history of CHF or cardiac disease. She was given 1 dose of IV Lasix. 2D echocardiogram ordered. Plan: We will start small dose of IV Lasix 20 mg IV twice daily, BNP, awaiting 2D echocardiogram. #4 chronic anemia: It is normocytic anemia. Hemoglobin has been around 11 g/dL since 2012, last reading was back on January,. Admission hemoglobin was 9.4 g/dL. No evidence of active bleeding. Today's hemoglobin is 9.6 g/dL. No indication for blood transfusion. Unknown hemoglobin since January,. Plan: Serum iron, TIBC, ferritin, B12, folic acid, repeat CBC tomorrow morning. #5 type 2 diabetes mellitus: Blood sugar has been fluctuating likely because of IV steroids. She is on Lantus twice daily as well as sliding scale. Plan to monitor, will check hemoglobin A1c. #6 hypertension: Blood pressure slightly elevated, continue losartan, start metoprolol as above, IV hydralazine as needed. #7 obstructive sleep apnea: Continue BiPAP at night. #8 hyperlipidemia: Continue statins. #9 DVT prophylaxis: She is on IV heparin drip. This note was generated with [employer] dictation software. It may contain incorrect words, spelling, and punctuation that were not noted in checking the note before signing. Code Visit Inpatient E&M: 70999 Subs Hosp L2
[2018-02-18] MEDS: Insulin Lispro 100 UNIT/ML INSULN.PEN SQ ×4 (08:17→21:10)
[2018-02-18] MEDS: Aspirin E.C. 81 MG Tablet PO (08:18)
[2018-02-18 09:17] LABS: Ferritin 196 ng/mL (8-252); Hemoglobin A1c 8.9 % (4.2-6.3); Iron 40 ug/dL (50-170); Iron Binding Capacity,Total 433 ug/dL (250-450); PERCENT IRON SATURATION 9.2 % (15.0-55.0)
[2018-02-18] MEDS: Clopidogrel Bisulfate 75 MG Tablet PO (10:24)
[2018-02-18] MEDS: Metoprolol Tartrate 25 MG Tablet 12.5 MG PO (10:24)
[2018-02-18] MEDS: Losartan Potassium 25 MG Tablet PO (10:25)
[2018-02-18 12:18] LABS: BNP,B-Type NATRIURETIC PEPTIDE 726.2 pg/mL (0-100)
[2018-02-18] MEDS: 0.9% Normal Saline 1,000 ML 150 ML IV (12:47)
[2018-02-18 12:55] LABS: ACT Activated Clotting Time 186 sec (74-137)
[2018-02-18 12:55] LABS: ACT Activated Clotting Time 142 sec (74-137)
[2018-02-18] MEDS: Furosemide 20 MG/2 ML VIAL IV ×2 (13:02→20:27)
[2018-02-18] MEDS: Glucerna Shake 120 ML LIQUID PO ×2 (13:55→17:22)
--- NOTE | 2018-02-18 14:13 | CRPHASE1 ---
Patient Data/Charges Mend Worker:: Lobo Ivan Refer Phase II:: Yes Phase II Referral:: [facility] Start Phase II:: after follow up visit with Cardiology Phase I Charge:: Level I - Education Risk Factors/Lifestyle Smoking Status: Never smoker Second-Hand Smoke:: No Hx Hypertension: Yes Hx Diabetes Mellitus Type 2: No Hx Dyslipidemia: Yes Hx Obesity: Yes Height: 1.4 m Weight:: 71.668 kg BMI: 36.7 Post-Menopausal: Yes Stress: Recent Risk Factor for Sedentary Lifestyle: Moderate Risk Family History: Family History (Last Reviewed 09/17/17 @ 18:16 by Mary Stevenson NP-C) Mother Hypertension Heart disease Hyperlipidemia Father Myocardial infarction Heart disease Emphysema lung Grandmother Diabetes Grandfather Epilepsia Alcoholism Family History: Heart Disease, Hypertension Laboratory Values: Cardiac Rehab Phase I Labs Hemoglobin A1c 8.9 % (4.2-6.3) H 02/18/18 05:40 Phase I Education Given On:: [place], Nutrition, Antiplatelet medication, CHF, Diabetes - Type II Issues Affecting Care:: None Knowledge of Condition:: Yes Learning Preferences: Verbal, Written, Audio/Visual, Demonstration Medical/Surgical History Angina:: Yes COPD:: Yes Asthma:: Yes [place]:: Yes Diabetes Type II:: Yes Hypertension:: Yes Dyslipidemia:: Yes Arthritis:: Yes Renal:: Yes Depression:: Yes
--- NOTE | 2018-02-18 14:17 | CRPHASE1_ITS ---
Patient Data/Charges Order Packer:: Lobo Ivan Refer Phase II:: Yes Phase II Referral:: [facility] Start Phase II:: after follow up visit with Cardiology Phase I Charge:: Level I - Education Risk Factors/Lifestyle Smoking Status: Never smoker Second-Hand Smoke:: No Hx Hypertension: Yes Hx Diabetes Mellitus Type 2: No Hx Dyslipidemia: Yes Hx Obesity: Yes Height: 1.4 m Weight:: 71.668 kg BMI: 36.7 Post-Menopausal: Yes Stress: Recent Risk Factor for Sedentary Lifestyle: Moderate Risk Family History: Family History (Last Reviewed 09/17/17 @ 18:16 by Mary Stevneson NP-C) Mother Hypertension Heart disease Hyperlipidemia Father Myocardial infarction Heart disease Emphysema lung Grandmother Diabetes Grandfather Epilepsia Alcoholism Family History: Heart Disease, Hypertension Laboratory Values: Cardiac Rehab Phase I Labs Hemoglobin A1c 8.9 % (4.2-6.3) H 02/18/18 05:40 Phase I Education Given On:: [place], Nutrition, Antiplatelet medication, CHF, Diabetes - Type II Issues Affecting Care:: None Knowledge of Condition:: Yes Learning Preferences: Verbal, Written, Audio/Visual, Demonstration Medical/Surgical History Angina:: Yes COPD:: Yes Asthma:: Yes [place]:: Yes Diabetes Type II:: Yes Hypertension:: Yes Dyslipidemia:: Yes Arthritis:: Yes Renal:: Yes Depression:: Yes
--- NOTE | 2018-02-18 14:20 | CRPH1.INST_ITS ---
General Education CAD and cardiac anatomy and function:: Patient communicates acknowledgment, Needs reinforcement Explanation of diagnoses and procedures:: Patient communicates acknowledgment, Needs reinforcement Sign/Symptoms of VT:: Patient communicates acknowledgment, Needs reinforcement Antiplatelet therapy: Patient communicates acknowledgment, Needs reinforcement Proper use of NTG-SL: Patient communicates acknowledgment, Needs reinforcement Emergency procedures and activation of EMS: Patient communicates acknowledgment , Needs reinforcement Compliance of all prescribed medications: Patient communicates acknowledgment, Needs reinforcement Smoking Patient Nicotine/Smoking Risk Factors Are:: Never smoked Recommendations Include:: Second-hand smoke recommendation Nicotine/Smoking Response Code:: Patient communicates acknowledgment, Needs reinforcement Dyslipidemia Recommendations Include:: Lipid profile not available, Reviewed NCEP/ATP guidelines, Therapeutic Lifestyle Change dietary guidelines Dyslipidemia Response Code:: Patient communicates acknowledgment, Needs reinforcement Overweight/Obesity Patient Overweight/Obesity Risk Factors Are:: Obesity - > or = 30 Recommendations Include:: Weight loss of 5-10%, Reduced calorie diet, Exercise 5 -7 times/week Overweight/Obesity:: Patient communicates acknowledgment, Needs reinforcement Hypertension Recommendations Include:: BP <130/80 if diabetic, DASH dietary guidelines, Decrease/maintain normal body weight, Moderation of ETOH Hypertension:: Patient communicates acknowledgment, Needs reinforcement Heart Disease Patient Heart Disease Risk Factors Are:: Family history of heart disease < 65 years old Recommendations Include:: Educated family members of their risk, Educated family members of importance of prevention of heart disease Heart Disease Response Code:: Patient communicates acknowledgment, Needs reinforcement Diabetes Recommendations Include:: Maintain fasting blood sugars 70-110 md/dL, Maintain HgbA1c of 6% or less, Monitor blood sugar as prescribed, Diabetic dietary guidelines, Decrease/maintain body weight Diabetes:: Patient communicates acknowledgment, Needs reinforcement Metabolic Syndrome Recommendations Include:: Patient is diabetic Metabolic Syndrome Response Code:: Not instructed Sedentary Patient Sedentary Risk Factors Are:: Lack of regular exercise Recommendations Include:: Aerobic exercise 5-7 times/week for 20-30 minutes continuously, Benefits of regular exercise, Discussed home walking program, Monitored Outpatient Cardiac Rehab Sedentary Response Code:: Patient communicates acknowledgment, Needs reinforcement Stress Recommendations Include:: Identification of stressors, and assessment of coping skills, Stress management techniques Stress Response Code:: Patient communicates acknowledgment, Needs reinforcement
[2018-02-18] MEDS: Ipratropium/Albuterol Sulfate 3 ML AMPUL.NEB INHALATION ×2 (14:30→19:00)
--- NOTE | 2018-02-18 15:54 | PCM.CONS.C ---
Problem List (1) Pulmonary hypertension Status: Acute (2) Non-STEMI (non-ST elevated myocardial infarction) Status: Acute (3) CHF (congestive heart failure) Status: Acute (4) [place] (obstructive sleep apnea) Status: Chronic (5) Hyperlipidemia Status: Chronic (6) COPD (chronic obstructive pulmonary disease) Status: Chronic Qualifiers: Reason for Consult Date of Consultation: 02/18/18 Reason for Consultation: Non-STEMI, pulmonary hypertension, LV dysfunction, chest pain, lower extremity edema, obstructive sleep apnea. 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 Patient sought medical attention last evening and [facility] ER when her shortness of breath acutely worsened. Her EKG showed normal sinus rhythm with right bundle branch block and left anterior hemiblock. Her initial troponin was 0.068, and increase to 0.659. Patient was started on IV heparin, loaded with 300 of Plavix, loaded with 4 baby aspirin, and an echocardiogram was performed this morning. This was reviewed bye myself which demonstrated what appears to be new inferior and posterior hypokinesis with an EF around 50%, moderate eccentric mitral regurgitation, mild tricuspid regurgitation, with an RVSP of approximately 77 millimeters of mercury. This is markedly worsened since her last echocardiogram several years ago. Patient underwent a diagnostic coronary angiogram given her symptoms, non-STEMI, and LV dysfunction. This demonstrated significant coronary occlusive disease in her PDA and 2 spots in her right coronary artery. In addition she had diffuse disease and a small left circumflex system of the OM and left circumflex as well as a possibly significant proximal LAD stenosis with mild to moderate calcification. Given the small caliber of her vessels,I do not believe she would benefit from multivessel bypass surgery. she patient underwent successful angioplasty and drug-eluting stenting to her PDA, distal RCA, and proximal RCA with an excellent result. Patient will return in 3 weeks time for elective PCI of her obtuse marginal, left circumflex, and FFR of her LAD. Patient's right groin was closed with a minx device.] Past Medical History Allergies/Adverse Reactions: Allergies meperidine HCl [From Demerol] Allergy (Verified 09/17/17 13:12) Other Penicillins Allergy (Verified 09/17/17 13:12) Rash Home Medications: Ambulatory Orders Medication Instructions Recorded Acetaminophen [Tylenol Tablet] 650 mg PO Q4H PRN PRN #0 tab 01/13/15 Atorvastatin Calcium [Lipitor] 20 mg PO QHS tab 01/13/15 Budesonide/Formoterol 160/4.5 2 puff INHALATION BID inhaler 01/13/15 [Symbicort 160/4.5 Mcg Inhaler (SP)] Ipratropium [place] 0.06% 2 spray NASAL TID PRN #0 nasal.sry 01/13/15 [ATROVENT NASAL SPRAY] Losartan Potassium [Cozaar] 25 mg PO DAILY tab 01/13/15 Nitroglycerin [Nitrostat] 0.4 mg SUBLINGUAL Q5M PRN #100 tab 01/13/15 Albuterol Aerosols [Ventolin 2.5 mg INHALATION Q4HWA.RT 02/17/18 Aerosols] Aspirin E.C. [Ecotrin] 81 mg PO DAILY@0800 02/17/18 Insulin Regular, Human [Novolin R] 18 units SQ BID 02/17/18 Past Medical History (Chronic Problems): Chronic Problems (Last Updated 02/18/18 @ 08:09 by Hossein Dodd MD) [place] (obstructive sleep apnea) (Chronic) Hyperlipidemia (Chronic) Seasonal allergies (Chronic) Depressive disorder (Chronic) Arthritis (Chronic) Asthma (Chronic) Chronic respiratory failure (Chronic) COPD (chronic obstructive pulmonary disease) (Chronic) Type II diabetes mellitus (Chronic) Surgical History: cholecystectomy, tonsillectomy Psychiatric History: No pertinent psych hx TREATER History: No pertinent TREATER history - *Family History Maternal Family History: Family History (Last Reviewed 09/17/17 @ 18:16 by KURT Blake) Mother Hypertension Heart disease Hyperlipidemia Father Myocardial infarction Heart disease Emphysema lung Grandmother Diabetes Grandfather Epilepsia Alcoholism History Items: No pertinent history Paternal Family History: Family History (Last Reviewed 09/17/17 @ 18:16 by KURT Blake) Mother Hypertension Heart disease Hyperlipidemia Father Myocardial infarction Heart disease Emphysema lung Grandmother Diabetes Grandfather Epilepsia Alcoholism History Items: Heart Disease - Father at age of 63 because of heart attack. Lives: Alone Smoking Status: Never smoker Tobacco Use: Non-smoker Alcohol: None Drugs: None Review of Systems - Review of Systems General: Denies: Fever, Night Sweats, Fatigue Cardiovascular: Reports: Shortness of Breath, Shortness of Breath at Rest, Shortness of Breath with Exertion, Peripheral Edema. Denies: Chest Discomfort, Orthopnea, PND, Palpitations, Lightheadedness, Dizziness, Near Syncope, Syncope Respiratory: Denies: Cough, Sputum Production, Hemoptysis Gastrointestinal: Denies: Hematemesis, Hematochezia, Melena Genitourinary: Denies: Dysuria, Hematuria Skin: Denies: Rash Subjectve: Patient laying down flat, complains of dry hacking cough. No acute distress. Objective: Vital Signs Temp Pulse Resp BP Pulse Ox 99.4 F H 86 21 H 129/50 H 98 02/18/18 14:00 02/18/18 15:00 02/18/18 15:00 02/18/18 15:00 02/18/18 15:00 Oxygen Flow Rate (L/min) 3 Oxygen Delivery Method Nasal Cannula Weight: 158 lb Body Mass Index (BMI) 37.8 Intake and Output for Last 24 Hours 02/16/18 02/17/18 02/18/18 23:59 23:59 23:59 Intake Total 399.7 / 399.7 75.4 / 75.4 Output Total 2550 / 2550 375 / 375 Balance -2150.3 / -2150.3 -299.6 / -299.6 General: Awake, Alert, Oriented x 3 HEENT: PERRL, EOMI, Sclera Non Icteric Neck: Supple, Good ROM, No Lymph Node Enlargement Lungs: Rales - Angelo Bases Cardiovascular: Regular Rhythm, Normal S1, Normal S2, No Rubs, No Gallops Murmur Murmur: Grade 2/6, Holosystolic Vascular: No Carotid Bruits, Normal Femoral Pulses, Normal Radial Pulses, Normal Dorsalis Pedal Pulse, Normal Posterior Tibial Pulses Abdomen: Bowel Sounds Present, Soft, Non Tender, No HSM, No Organomegaly Extremities: No Cyanosis, No Clubbing, No edema Neurological: No Focal Motor or Sensory Deficit 02/17/18 17:12: WBC 13.2 H, RBC 3.27 L, Hgb 9.6 L, Hct 31.0 L, MCV 94.8, MCH 29.4, MCHC 31.0 L, RDW 13.6, RDW Differential 46.9 H, Plt Count 316, MPV 9.1, Immature Gran % (Auto) 0.100, Neut % (Auto) 92.8 H, Lymph % (Auto) 5.0 L, [place] % (Auto) 1.4, Eos % (Auto) 0.5, Baso % (Auto) 0.2, Absolute Neuts (auto) 12.3 H, Total Counted Not Reportable 02/17/18 17:12: Troponin I 0.659 H* 02/17/18 20:15: Troponin I 0.614 H* 02/17/18 20:15: PT 12.8, INR 1.0, APTT 24.9 02/18/18 03:34: Sodium 140, Potassium 4.4, Chloride 104, Carbon Dioxide 27.0, Anion Gap 9, BUN 31 H, Creatinine 1.22 H, Est GFR (MDRD) Af Amer 56 L, Est GFR (MDRD) Non-Af 47 L, BUN/Creatinine Ratio 25.4 H, Glucose 260 H, Calcium 9.0 02/18/18 03:34: APTT 49.8 H 02/18/18 05:40: B-Natriuretic Peptide 726.2 H 02/18/18 05:40: Hemoglobin A1c 8.9 H 02/18/18 05:40: Iron 40 L, TIBC 433, Iron Saturation 9.2 L, Ferritin 196 Rhythm: EKG: ECHO: Stress Test: Cardiac Cath: PCI: CT Surgery: Holter monitor: EPS: PPM: CXR: Chest CT Scan: Assessment/Plan 1. Coronary artery disease: Patient is evidence of new inferior posterior hypokinesis superimposed upon multivessel coronary disease particularly of the right coronary system. Her vessels are too small for bypass surgery, and I recommended multivessel angioplasty. Patient underwent successful angioplasty and drug-eluting stenting ?3 to the PDA, distal RCA, and proximal RCA. She will return in 3 weeks time for elective angioplasty and stenting of her obtuse marginal #1, left circumflex, and possible FFR of her LAD. Once this is completed, she will then go to cardiac rehab followed by repeat echocardiogram in 3 months time. In the meantime she will continue baby aspirin, Plavix, and we will initiate Coreg therapy once her pulmonary hypertension has been optimized. In addition we will start her on Cozaar. We will hold on IV Lasix today given her recent catheterization and dye load and chronic renal insufficiency. We will initiate Lasix 20 mg IV daily until she is reached her dry weight. Patient will most likely require lifelong diuretic therapy for her pulmonary hypertension. In addition she will be initiated on Imdur therapy for pulmonary vasodilatation. 2. Hyperlipidemia: Continue Lipitor therapy. Repeat lipid profile in 6 weeks time. 3. Pulmonary hypertension: It is possible the patient may have also had a pulmonary embolus to explain her acute pulmonary hypertension. In addition she has evidence of at least moderate partially directed mitral regurgitation which may be contributing to this as well. Hopefully with her angioplasty her inferior wall will improve and therefore improve her mitral regurgitation, and subsequent pulmonary pressures. If after complete revascularization her mitral regurgitation worsens she may require mitral regurgitant repair surgery. 4. Obstructive sleep apnea: The patient has a diagnosis of COPD and obstructive sleep apnea. She is a current patient of Dr. Kaur. Continue BiPAP therapy. 5. Thank you very much for the opportunity to participate in the cardiac care of your patient. Consultation time took place between 8 AM and 8:35 AM. Code Visit Inpatient E&M: 45734 Subs Hosp L2
--- NOTE | 2018-02-18 15:58 | CASEMGMT ---
RN CM Assessment completed. DC Plan: Home Pt mentioned numerous times that she takes care of herself and wants to maintain independence. -May benefit from Home Health, but will f/u with pt tomorrow as pt is declining needing any assist at home today. -If Home oxygen is needed, pt would like [facility]. She was their client in past. -Discussed [facility] f/u. Pt plans to make appointment with [facility] on dc to have prescriptions filled. Pt stated I drive myself there. [facility] is also available to her if needed, thought this is not her first choice. Margy ALANIZN RN ACM
--- NOTE | 2018-02-18 16:43 | PCM.PN.BLA ---
Progress Note Patient will be contacted by [facility] to set up stage PCI.
[2018-02-18 17:21] LABS: Bedside Glucose 213 mg/dL (70-110)
[2018-02-18] MEDS: Carvedilol 3.125 MG TABLET PO (21:09)
[2018-02-18] MEDS: Atorvastatin Calcium 80 MG Tablet PO (21:10)
[2018-02-18 21:21] LABS: Bedside Glucose 236 mg/dL (70-110)
[2018-02-19] VITALS (24 sets, daily range): BP systolic 112–137; BP diastolic 46–78; PULSE 59–90; RESP 12–24; TEMP 36.3–36.8; O2SAT 92–100
[2018-02-19] MEDS: Acetaminophen 325 MG Tablet 650 MG PO (04:27)
[2018-02-19 04:31] LABS: Absolute Lymphocyte Count 2.27 X10^3/ul (0.83-4.51); Absolute Neutrophil Count 19.1 X10^3/uL (2.0-7.7); Basophil# 0.01 X10^3/uL; Eosinophil# 0.04 X10^3/uL; Eosinophils% 0.2 % (0-5); Hemoglobin 8.3 g/dl (12.0-15.0); Lymphocyte # 2.27 X10^3/ul (4.0); Mean Corp Hgb Conc 31.9 g/gl (32-36); Mean Corpuscular Hgb 30.1 pg (27.0-32.0); Mean Corpuscular Volume 94.2 fL (81-99); Monocyte% 5.3 % (0-10); Neutrophil # 19.07 X10^3/uL (2.7-7.7); Neutrophil % 84.2 % (47-70); Platelet Count 293 K/mm3 (150-450); RBC Distribution Width CV 14.1 % (11.6-14.6); Red Blood Count 2.76 M/mm3 (4.2-5.4); White Blood Count 22.7 K/mm3 (4.4-11.0)
[2018-02-19 04:40] LABS: POSITIVE COUNT NO; POSITIVE DIFFERENTIAL NO; POSITIVE MORPHOLOGY NO
[2018-02-19 04:44] LABS: Anion Gap 8 (5-15); BUN 48 mg/dL (7-18); Calcium,Total 8.4 mg/dL (8.5-10.1); Chloride 106 mmol/L (98-107); Cholesterol 190 mg/dL (200); EST Glomerular Filtration Rate 37 mL/min (>60); Est Glom Filt Rate - Afr Amer 45 mL/min (>60); Estimated Creatinine Clearance 41.18 ml/min; Glucose 94 mg/dL (74-106); High Density Lipoprotein 47 mg/dL; Potassium 4.3 mmol/L (3.5-5.1); Sodium Level 143 mmol/L (136-145); Triglycerides 125 mg/dL; Very Low Density Lipoprotein 25 mg/dL (5-40)
[2018-02-19] MEDS: Budesonide Respules 0.5 MG/2 ML AMPUL.NEB. INHALATION ×2 (07:06→18:48)
[2018-02-19] MEDS: Ipratropium/Albuterol Sulfate 3 ML AMPUL.NEB INHALATION ×3 (07:06→18:48)
[2018-02-19 07:16] LABS: Bedside Glucose 403 mg/dL (70-110)
[2018-02-19 07:16] LABS: Bedside Glucose 396 mg/dL (70-110)
--- NOTE | 2018-02-19 07:41 | PCM.PROGNOTE ---
Patient Problems: Active and Suspected Problems (Last Updated 02/18/18 @ 18:15 by Evita Wilson) Pulmonary hypertension (Acute) Non-STEMI (non-ST elevated myocardial infarction) (Acute 02/17/18) CHF (congestive heart failure) (Acute) Subjective: Chief complaint: Follow-up after admission for acute systolic CHF, non-ST elevation OR, acute on chronic hypoxic respiratory failure and probable COPD exacerbation. Patient seen and examined. No acute events overnight. This morning, she feels better, shortness of breath continued to improve. Denies any chest pain. She complains of mild dry cough. She denies fever or chills. She denied constipation or diarrhea. She denied urinary symptoms. She is afebrile, blood pressure and heart rate are stable, pulse ox is maintained on 2 L of oxygen. - Physical Exam General: Alert, Oriented x3, Cooperative, No apparent distress HEENT: Atraumatic, PERRLA, EOMI, Normocephalic Oral: Moist Mucosa, No Gingival or Mucosal Lesions/ Ulcerations Neck: Supple, No JVD, Negative Carotid Bruits, Trachea Midline, Thyroid Normal Size and Texture Lungs: Clear to auscultation, No rhonchi, No wheeze, No rales, Diminished Cardiovascular: Regular rate, Regular Rhythm, Normal S1, Normal S2, PMI Normal Abdomen: Bowel Sounds Present, Soft, Non Tender, Non-Distended, No Hepato-splenomegaly Extremities: No clubbing, No cyanosis, Edema - Trace edema. Skin: No rashes, No breakdown Lymphatic: No Cervical, Supraclavicular, or Inguinal Adenopathy Neurological: Cranial nerves II-XII grossly intact, Neuro grossly intact Psych/Mental Status: Normal Affect, Appropriate, Alert and oriented to time, place, person, mood and affect Vital Signs Temp Pulse Resp BP Pulse Ox 98.0 F 65 20 H 117/52 L 98 02/19/18 00:00 02/19/18 06:00 02/19/18 06:00 02/19/18 06:00 02/19/18 06:00 Oxygen Flow Rate (L/min) 3 Oxygen Delivery Method Bi-pap Weight: 160 lb 0.889 oz Body Mass Index (BMI) 37.8 Intake and Output for Last 24 Hours 02/17/18 02/18/18 02/19/18 23:59 23:59 23:59 Intake Total 399.7 / 399.7 1423.4 / 1423.4 60 / 60 Output Total 2550 / 2550 975 / 975 700 / 700 Balance -2150.3 / -2150.3 448.4 / 448.4 -640 / -640 Laboratory Tests Past 24 Hrs 02/18/18 02/18/18 02/18/18 05:40 05:40 05:40 WBC RBC Hgb Hct MCV MCH MCHC RDW RDW Differential Plt Count MPV Immature Gran % (Auto) Neut % (Auto) Lymph % (Auto) [place] % (Auto) Eos % (Auto) Baso % (Auto) Absolute Neuts (auto) Absolute Lymphs (auto) Total Counted Activated Clotting Time Sodium Potassium Chloride Carbon Dioxide Anion Gap BUN Creatinine Estim Creat Clear Calc Est GFR (MDRD) Af Amer Est GFR (MDRD) Non-Af BUN/Creatinine Ratio Glucose Hemoglobin A1c 8.9 H Calcium Iron 40 L TIBC 433 Iron Saturation 9.2 L Ferritin 196 B-Natriuretic Peptide 726.2 H Triglycerides Cholesterol LDL Cholesterol VLDL Cholesterol HDL Cholesterol Vitamin B12 RBC Folate Hemolysate RBC Folate Hematocrit 02/18/18 02/18/18 02/18/18 10:57 11:44 18:10 WBC RBC Hgb Hct MCV MCH MCHC RDW RDW Differential Plt Count MPV Immature Gran % (Auto) Neut % (Auto) Lymph % (Auto) [place] % (Auto) Eos % (Auto) Baso % (Auto) Absolute Neuts (auto) Absolute Lymphs (auto) Total Counted Activated Clotting Time 142 H 186 H Sodium Potassium Chloride Carbon Dioxide Anion Gap BUN Creatinine Estim Creat Clear Calc Est GFR (MDRD) Af Amer Est GFR (MDRD) Non-Af BUN/Creatinine Ratio Glucose Hemoglobin A1c Calcium Iron TIBC Iron Saturation Ferritin B-Natriuretic Peptide Triglycerides Cholesterol LDL Cholesterol VLDL Cholesterol HDL Cholesterol Vitamin B12 Pending RBC Folate Hemolysate RBC Folate Hematocrit 02/18/18 02/19/18 02/19/18 19:45 04:10 04:10 WBC 22.7 H RBC 2.76 L Hgb 8.3 L Hct 26.0 L MCV 94.2 MCH 30.1 MCHC 31.9 L RDW 14.1 RDW Differential 48.0 H Plt Count 293 MPV 9.0 Immature Gran % (Auto) 0.300 Neut % (Auto) 84.2 H Lymph % (Auto) 10.0 L [place] % (Auto) 5.3 Eos % (Auto) 0.2 Baso % (Auto) 0.0 Absolute Neuts (auto) 19.1 H Absolute Lymphs (auto) 2.27 Total Counted Not Reportable Activated Clotting Time Sodium 143 Potassium 4.3 Chloride 106 Carbon Dioxide 29.0 Anion Gap 8 BUN 48 H Creatinine 1.50 H Estim Creat Clear Calc 41.18 Est GFR (MDRD) Af Amer 45 L Est GFR (MDRD) Non-Af 37 L BUN/Creatinine Ratio 32.0 H Glucose 94 Hemoglobin A1c Calcium 8.4 L Iron TIBC Iron Saturation Ferritin B-Natriuretic Peptide Triglycerides 125 Cholesterol 190 LDL Cholesterol 118 VLDL Cholesterol 25 HDL Cholesterol 47 Vitamin B12 RBC Folate Hemolysate Pending RBC Folate Pending Hematocrit Pending POC Glucose 02/18/18 02/18/18 02/18/18 21:07 17:12 13:07 POC Glucose 236 H 213 H 396 H 02/18/18 13:00 POC Glucose 403 H Medical Necessity - Tobacco Use Smoking Status: Never smoker Tobacco Use: Non-smoker Assessment/Plan All Active Problems (Last Updated 02/18/18 @ 18:15 by Evita Wilson) Atherosclerotic heart disease of [place] coronary artery with other forms of angina pectoris (Acute 02/18/18) Pulmonary hypertension (Acute) Non-STEMI (non-ST elevated myocardial infarction) (Acute 02/17/18) CHF (congestive heart failure) (Acute) This is a 67 years old female patient presented to the emergency department because of shortness of breath and she was found to have acute systolic CHF, non-ST elevation OR as well as probable COPD exacerbation complicated by acute on chronic hypoxic respiratory failure. #1 acute combined systolic and diastolic CHF: She is on IV Lasix, Coreg, isosorbide mononitrate and losartan. Her symptoms improved, less short of breath. 2D echocardiogram revealed ejection fraction of 50%, stage II diastolic dysfunction, posterior basal hypokinetic wall, inferior basal and lateral basal mild hypokinesia, severe pulmonary hypertension. Today's creatinine is going up and it is at 1.5. Her vital cell count is going up and likely because of IV steroids. She denies any symptoms suggestive of infectious process. Plan: Wean off oxygen, DC IV Lasix, start oral Lasix, repeat CBC and BMP tomorrow morning continue other treatments. #2 acute non-ST elevation OR: Status post cardiac catheterization, PTCA/OLGA to distal RCA and proximal RCA. Hemodynamically stable. She is on aspirin, Plavix statins, beta blockers, nitrates and losartan. 2D echocardiogram reviewed as above. Plan to continue same treatment troponin is elevated. EKG revealed normal sinus rhythm with right bundle branch block, no acute ST elevation. Patient denied any chest pain. She does not have history of CAD or CHF but she has risk factors for CAD. This might indicate underlying CAD. She is on aspirin, statins, losartan and IV heparin. 2D echocardiogram ordered. Cardiology consulted. Plan to start beta-blockers, awaiting cardiology recommendations. #3 Probable COPD exacerbation/acute on chronic hypoxic respiratory failure: She is on bronchodilators and steroids. The acute on chronic hypoxic respiratory failure is likely due to CHF more than COPD exacerbation. Her chest x-ray showed no acute infiltrate. Plan: Continue bronchodilators, DC steroids. #4 chronic anemia: It is normocytic anemia. Hemoglobin today is down to 8.3 g/dL. Serum iron is slightly low as well as iron saturation, TIBC and ferritin were normal. Vitamin B12 and folate are pending. At this time, no indication for transfusion. Patient denies any bleeding from body orifices. Plan: Stool for occult blood, will start iron supplement, repeat CBC tomorrow morning. #5 type 2 diabetes mellitus, uncontrolled: Blood sugar has been fluctuating. She is on Lantus twice daily as well as sliding scale. Hemoglobin A1c is 8.9. Plan to increase Lantus to 28 units twice daily, continue sliding scale. #6 hypertension: Blood pressure under better control, continue losartan, metoprolol, IV hydralazine as needed. #7 obstructive sleep apnea: Continue BiPAP at night. #8 hyperlipidemia: Continue statins. #9 DVT prophylaxis: SCDs. This note was generated with [employer] dictation software. It may contain incorrect words, spelling, and punctuation that were not noted in checking the note before signing. Code Visit Inpatient E&M: 80809 Subs Hosp L2
[2018-02-19] MEDS: Glucerna Shake 120 ML LIQUID PO (08:36)
[2018-02-19] MEDS: Ferrous Sulfate 325 MG Tablet PO ×2 (08:36→16:06)
[2018-02-19] MEDS: Furosemide 40 MG Tablet PO (08:36)
[2018-02-19] MEDS: Losartan Potassium 25 MG Tablet PO (08:37)
[2018-02-19] MEDS: Isosorbide Mononitrate 30 MG Tablet PO (08:37)
[2018-02-19] MEDS: Aspirin E.C. 81 MG Tablet PO (08:37)
[2018-02-19 09:05] LABS: Vitamin B12 566 pg/mL (211-911)
[2018-02-19 11:11] LABS: Bedside Glucose 83 mg/dL (70-110)
[2018-02-19] MEDS: Clopidogrel Bisulfate 75 MG Tablet PO (11:12)
[2018-02-19] MEDS: Carvedilol 3.125 MG TABLET PO ×2 (11:12→21:39)
[2018-02-19] MEDS: Pantoprazole Sodium 20 MG Tablet PO (11:12)
[2018-02-19] MEDS: Insulin Lispro 100 UNIT/ML INSULN.PEN SQ ×2 (11:16→21:31)
[2018-02-19 11:21] LABS: Bedside Glucose 217 mg/dL (70-110)
--- NOTE | 2018-02-19 11:32 | PCM.PN.CARD ---
Subjectve: Patient feels great this morning. No chest pain or angina. Hemoglobin has dropped slightly from her baseline anemia of 9.4 to 8.3 without any overt signs of bleeding. Her right groin is clean/dry/intact. She denies any hematochezia or melena. Telemetry showed normal sinus rhythm with rare PVCs. EKG shows normal sinus rhythm no acute changes. Objective: Vital Signs Temp Pulse Resp BP Pulse Ox 98.3 F 76 18 118/48 L 96 02/19/18 09:30 02/19/18 09:30 02/19/18 09:30 02/19/18 09:30 02/19/18 10:30 Oxygen Flow Rate (L/min) 2 Oxygen Delivery Method Nasal Cannula Weight: 160 lb 0.889 oz Body Mass Index (BMI) 37.8 Intake and Output for Last 24 Hours 02/17/18 02/18/18 02/19/18 23:59 23:59 23:59 Intake Total 399.7 / 399.7 1423.4 / 1423.4 60 / 60 Output Total 2550 / 2550 975 / 975 700 / 700 Balance -2150.3 / -2150.3 448.4 / 448.4 -640 / -640 General: Awake, Alert, Oriented x 3 HEENT: PERRL, EOMI, Sclera Non Icteric Neck: Supple, Good ROM, No Lymph Node Enlargement Lungs: Clear to auscultation Cardiovascular: Regular Rhythm, Normal S1, Normal S2, No Rubs, No Gallops Murmur Murmur: Grade 2/6, Holosystolic Vascular: No Carotid Bruits, Normal Femoral Pulses, Normal Radial Pulses, Normal Dorsalis Pedal Pulse, Normal Posterior Tibial Pulses Abdomen: Bowel Sounds Present, Soft, Non Tender, No HSM, No Organomegaly Extremities: No Cyanosis, No Clubbing, No edema Neurological: No Focal Motor or Sensory Deficit 02/18/18 05:40: B-Natriuretic Peptide 726.2 H 02/19/18 04:10: WBC 22.7 H, RBC 2.76 L, Hgb 8.3 L, Hct 26.0 L, MCV 94.2, MCH 30.1, MCHC 31.9 L, RDW 14.1, RDW Differential 48.0 H, Plt Count 293, MPV 9.0, Immature Gran % (Auto) 0.300, Neut % (Auto) 84.2 H, Lymph % (Auto) 10.0 L, [place] % (Auto) 5.3, Eos % (Auto) 0.2, Baso % (Auto) 0.0, Absolute Neuts (auto) 19.1 H, Total Counted Not Reportable 02/19/18 04:10: Sodium 143, Potassium 4.3, Chloride 106, Carbon Dioxide 29.0, Anion Gap 8, BUN 48 H, Creatinine 1.50 H, Est GFR (MDRD) Af Amer 45 L, Est GFR (MDRD) Non-Af 37 L, BUN/Creatinine Ratio 32.0 H, Glucose 94, Calcium 8.4 L, Triglycerides 125, Cholesterol 190, LDL Cholesterol 118, VLDL Cholesterol 25, HDL Cholesterol 47 Rhythm: EKG: ECHO: Stress Test: Cardiac Cath: PCI: CT Surgery: Holter monitor: EPS: PPM: CXR: Chest CT Scan: Medical Necessity - Tobacco Use Smoking Status: Never smoker Tobacco Use: Non-smoker Assessment/Plan 1. Coronary artery disease: Patient is evidence of new inferior posterior hypokinesis superimposed upon multivessel coronary disease particularly of the right coronary system. Her vessels are too small for bypass surgery, and I recommended multivessel angioplasty. Patient underwent successful angioplasty and drug-eluting stenting ?3 to the PDA, distal RCA, and proximal RCA. She will return in 3 weeks time for elective angioplasty and stenting of her obtuse marginal #1, left circumflex, and possible FFR of her LAD. Once this is completed, she will then go to cardiac rehab followed by repeat echocardiogram in 3 months time. In the meantime she will continue baby aspirin, Plavix, and we will initiate Coreg therapy once her pulmonary hypertension has been optimized. In addition we will start her on Cozaar if her blood pressure tolerates it. Recommend restarting Lasix 40 mg p.o. daily given her severe portal hypertension. Patient will most likely require lifelong diuretic therapy for her pulmonary hypertension. In addition she will be initiated on Imdur therapy for pulmonary vasodilatation. 2. Hyperlipidemia: Continue Lipitor therapy. Repeat lipid profile in 6 weeks time. 3. Pulmonary hypertension: It is possible the patient may have also had a pulmonary embolus to explain her acute pulmonary hypertension. In addition she has evidence of at least moderate partially directed mitral regurgitation which may be contributing to this as well. Hopefully with her angioplasty her inferior wall will improve and therefore improve her mitral regurgitation, and subsequent pulmonary pressures. If after complete revascularization her mitral regurgitation worsens she may require mitral regurgitant repair surgery. 4. Obstructive sleep apnea: The patient has a diagnosis of COPD and obstructive sleep apnea. She is a current patient of Dr. Kaur. Continue BiPAP therapy. 5. Anemia: Patient had baseline anemia of 9.3 upon arrival, and decreased 8.3 with IV fluid resuscitation after her PCI. We will initiate diuretic therapy, and she has iron studies and folate studies pending. She denies any hematochezia, bright red blood per rectum, or groin bleeding. Recommend keeping her hemoglobin above 8.0 post procedure. 6. Thank you very much for the opportunity to participate in the cardiac care of your patient. Patient may be placed in PCU status. Code Visit Inpatient E&M: 26857 Subs Hosp L2
[2018-02-19 16:21] LABS: Bedside Glucose 146 mg/dL (70-110)
[2018-02-19] MEDS: Heparin Injection (Vial) 5,000 UNIT/ML VIAL 5000 UNIT SC (21:31)
[2018-02-19] MEDS: Atorvastatin Calcium 80 MG Tablet PO (21:39)
[2018-02-19 21:46] LABS: Bedside Glucose 158 mg/dL (70-110)
[2018-02-20] VITALS (22 sets, daily range): BP systolic 114–136; BP diastolic 54–72; PULSE 62–82; RESP 12–20; TEMP 36.4–36.9; O2SAT 93–100
[2018-02-20] MEDS: Acetaminophen 325 MG Tablet 650 MG PO ×2 (01:51→15:57)
[2018-02-20] MEDS: LORazepam 1 MG Tablet PO (01:51)
[2018-02-20 06:09] LABS: Absolute Lymphocyte Count 2.64 X10^3/ul (0.83-4.51); Absolute Neutrophil Count 10.9 X10^3/uL (2.0-7.7); Basophil# 0.05 X10^3/uL; Basophil% 0.3 % (0-1); Eosinophil# 0.75 X10^3/uL; Eosinophils% 4.8 % (0-5); Hemoglobin 7.7 g/dl (12.0-15.0); Lymphocyte # 2.64 X10^3/ul (4.0); Lymphocyte % 17.1 % (19-41); Mean Corp Hgb Conc 30.8 g/gl (32-36); Mean Corpuscular Volume 97.3 fL (81-99); Mean Platelet Vol. 9.2 fl (6.2-12.0); Monocyte# 1.12 X10^3/uL; Monocyte% 7.2 % (0-10); Neutrophil # 10.85 X10^3/uL (2.7-7.7); Neutrophil % 70.2 % (47-70); Platelet Count 318 K/mm3 (150-450); RBC Distribution Width CV 13.6 % (11.6-14.6); RBC Distribution Width SD 45.7 fl (35.1-43.9); Red Blood Count 2.57 M/mm3 (4.2-5.4); White Blood Count 15.5 K/mm3 (4.4-11.0)
[2018-02-20 06:11] LABS: POSITIVE COUNT NO; POSITIVE DIFFERENTIAL NO; POSITIVE MORPHOLOGY NO
[2018-02-20 06:30] LABS: Anion Gap 11 (5-15); BUN 73 mg/dL (7-18); BUN/Creat Ratio 34.4 RATIO (10-20); Calcium,Total 8.2 mg/dL (8.5-10.1); Chloride 105 mmol/L (98-107); Creatinine, Serum 2.12 mg/dL (0.55-1.02); EST Glomerular Filtration Rate 25 mL/min (>60); Est Glom Filt Rate - Afr Amer 30 mL/min (>60); Estimated Creatinine Clearance 29.51 ml/min; Glucose 85 mg/dL (74-106); Potassium 4.3 mmol/L (3.5-5.1); Sodium Level 141 mmol/L (136-145)
[2018-02-20 06:46] LABS: Bedside Glucose 89 mg/dL (70-110)
[2018-02-20] MEDS: Ipratropium/Albuterol Sulfate 3 ML AMPUL.NEB INHALATION ×4 (06:49→19:54)
[2018-02-20] MEDS: Budesonide Respules 0.5 MG/2 ML AMPUL.NEB. INHALATION ×2 (06:49→19:54)
--- NOTE | 2018-02-20 08:02 | PCM.PROGNOTE ---
Patient Problems: Active and Suspected Problems (Last Updated 02/18/18 @ 18:15 by Evita Wilson) Pulmonary hypertension (Acute) Non-STEMI (non-ST elevated myocardial infarction) (Acute 02/17/18) CHF (congestive heart failure) (Acute) Subjective: Chief complaint: Follow-up after admission for acute systolic CHF, non-ST elevation AL, acute on chronic hypoxic respiratory failure and probable COPD exacerbation. Hospital course complicated by acute on chronic anemia requiring blood transfusion as well as acute kidney injury. Patient seen and examined. No acute events overnight. She mentioned that her breathing is getting better every day. She has been ambulating without difficulties, no chest pain or shortness of breath. Denied dizziness or lightheadedness. Today, hemoglobin went down to 7.7 g/dL. Creatinine has been creeping up and it is 2.12 today. Her vital signs stable, pulse ox is maintained on room air. - Physical Exam General: Alert, Oriented x3, Cooperative, No apparent distress HEENT: Atraumatic, PERRLA, EOMI, Normocephalic Oral: Moist Mucosa, No Gingival or Mucosal Lesions/ Ulcerations Neck: Supple, No JVD, Negative Carotid Bruits, Trachea Midline, Thyroid Normal Size and Texture Lungs: Clear to auscultation, No rhonchi, No wheeze, No rales, Diminished, - - Diminished breath sounds at the bases, otherwise clear. Cardiovascular: Regular rate, Regular Rhythm, Normal S1, Normal S2, PMI Normal Abdomen: Bowel Sounds Present, Soft, Non Tender, Non-Distended, No Hepato-splenomegaly Extremities: No clubbing, No cyanosis, No edema Skin: No rashes, No breakdown Lymphatic: No Cervical, Supraclavicular, or Inguinal Adenopathy Neurological: Cranial nerves II-XII grossly intact, Motor Exam 5/5 strength throughout Psych/Mental Status: Normal Affect, Appropriate, Alert and oriented to time, place, person, mood and affect Vital Signs Temp Pulse Resp BP Pulse Ox 97.8 F 71 16 114/54 L 95 02/20/18 05:48 02/20/18 07:26 02/20/18 06:49 02/20/18 05:48 02/20/18 06:49 Oxygen Flow Rate (L/min) 2 Oxygen Delivery Method Room Air Weight: 160 lb 0.889 oz Body Mass Index (BMI) 37.8 Intake and Output for Last 24 Hours 02/18/18 02/19/18 02/20/18 23:59 23:59 23:59 Intake Total 1423.4 / 1423.4 420 / 420 Output Total 975 / 975 700 / 700 Balance 448.4 / 448.4 -280 / -280 Laboratory Tests Past 24 Hrs 02/18/18 02/20/18 02/20/18 18:10 05:46 05:46 WBC 15.5 H RBC 2.57 L Hgb 7.7 L Hct 25.0 L MCV 97.3 MCH 30.0 MCHC 30.8 L RDW 13.6 RDW Differential 45.7 H Plt Count 318 MPV 9.2 Immature Gran % (Auto) 0.400 Neut % (Auto) 70.2 H Lymph % (Auto) 17.1 L [place] % (Auto) 7.2 Eos % (Auto) 4.8 Baso % (Auto) 0.3 Absolute Neuts (auto) 10.9 H Absolute Lymphs (auto) 2.64 Total Counted Not Reportable Sodium 141 Potassium 4.3 Chloride 105 Carbon Dioxide 25.0 Anion Gap 11 BUN 73 H Creatinine 2.12 H Estim Creat Clear Calc 29.51 Est GFR (MDRD) Af Amer 30 L Est GFR (MDRD) Non-Af 25 L BUN/Creatinine Ratio 34.4 H Glucose 85 Calcium 8.2 L Vitamin B12 566 POC Glucose 02/20/18 02/19/18 02/19/18 06:39 21:28 16:01 POC Glucose 89 158 H 146 H 02/19/18 02/19/18 11:14 08:18 POC Glucose 217 H 83 Medical Necessity - Tobacco Use Smoking Status: Never smoker Tobacco Use: Non-smoker Assessment/Plan All Active Problems (Last Updated 02/18/18 @ 18:15 by Evita Wilson) Atherosclerotic heart disease of [place] coronary artery with other forms of angina pectoris (Acute 02/18/18) Pulmonary hypertension (Acute) Non-STEMI (non-ST elevated myocardial infarction) (Acute 02/17/18) CHF (congestive heart failure) (Acute) This is a 67 years old female patient presented to the emergency department because of shortness of breath and she was found to have acute systolic CHF, non-ST elevation AL as well as probable COPD exacerbation complicated by acute on chronic hypoxic respiratory failure. Hospital course complicated by acute on chronic anemia requiring blood transfusion as well as acute kidney injury. #1 acute combined systolic and diastolic CHF: She is on oral Lasix, Coreg, isosorbide mononitrate and losartan. Her symptoms is getting better. Her vital signs are stable. 2D echocardiogram revealed ejection fraction of 50%, stage II diastolic dysfunction, posterior basal hypokinetic wall, inferior basal and lateral basal mild hypokinesia, severe pulmonary hypertension. Today's creatinine is still going up and it is at 2.12. Plan: Continue same treatment. #2 acute non-ST elevation AL: Status post cardiac catheterization, PTCA/OLGA to distal RCA and proximal RCA. Hemodynamically stable. She is on aspirin, Plavix statins, beta blockers, nitrates and losartan. 2D echocardiogram reviewed as above. Plan to continue same treatment. #3 acute on chronic anemia: It is normocytic anemia. Hemoglobin has been steadily dropping since admission. Today, it is down to 7.7 g/dL. Patient denied any bleeding from body orifices. Her platelet count was normal, pro time and INR were normal as well. Stool for occult blood ordered but she did not have any bowel movement so far. Serum iron and iron saturation was low. Serum ferritin and TIBC was normal. B12 and folate are pending. Patient started already on iron supplement. Patient will be on Plavix for at least one year and we need to rule out GI bleed. Plan: Transfuse 1 unit of packed RBCs, change Protonix to IV 40 mg twice daily, will discuss with general surgery if they can do upper EGD to rule out peptic ulcer. #4 Probable COPD exacerbation/acute on chronic hypoxic respiratory failure: She is on bronchodilators, prednisone discontinued. The acute on chronic hypoxic respiratory failure is likely due to CHF more than COPD exacerbation. Her chest x-ray showed no acute infiltrate. Today, pulse ox is 94% on room air. #5 acute kidney injury: Baseline creatinine has been normal. Admission creatinine was 1.09. It has been getting worse since admission. Today, it is up to 2.12. This is likely because of diuretics in addition to IV contrast for cardiac catheterization. Plan: Encourage oral intake, will give 500 cc of IV fluids, repeat BMP tomorrow morning. #6 type 2 diabetes mellitus, uncontrolled: Blood sugar under better control. She is on Lantus twice daily as well as sliding scale. Hemoglobin A1c is 8.9. Plan to monitor. #7 hypertension: Blood pressure under better control, continue losartan, metoprolol, IV hydralazine as needed. #8 obstructive sleep apnea: Continue BiPAP at night. #9 hyperlipidemia: Continue statins. #10 DVT prophylaxis: SCDs. This note was generated with i[employer] dictation software. It may contain incorrect words, spelling, and punctuation that were not noted in checking the note before signing. Code Visit Inpatient E&M: 41601 Subs Hosp L3
[2018-02-20] MEDS: 0.9% Normal Saline 1,000 ML 75 ML IV (08:27)
[2018-02-20] MEDS: 0.9% NaCl Peripheral Flush Adult/Peds IV ×2 (08:29→23:59)
[2018-02-20] MEDS: Ferrous Sulfate 325 MG Tablet PO ×2 (08:46→17:51)
[2018-02-20] MEDS: Aspirin E.C. 81 MG Tablet PO (08:46)
[2018-02-20] MEDS: Losartan Potassium 25 MG Tablet PO (08:46)
[2018-02-20] MEDS: Isosorbide Mononitrate 30 MG Tablet PO (08:46)
[2018-02-20] MEDS: Furosemide 40 MG Tablet PO (08:47)
[2018-02-20] MEDS: Clopidogrel Bisulfate 75 MG Tablet PO (08:47)
[2018-02-20] MEDS: Carvedilol 3.125 MG TABLET PO ×2 (08:47→21:50)
[2018-02-20] MEDS: Heparin Injection (Vial) 5,000 UNIT/ML VIAL 5000 UNIT SC ×2 (08:49→21:50)
--- NOTE | 2018-02-20 10:04 | PCM.PN.CARD ---
Subjectve: Feels better today. Had her usual Am wheezing this AM that is getting better with meds. Denies chest pains, groin pain. Objective: Vital Signs Temp Pulse Resp BP Pulse Ox 97.7 F L 73 18 129/61 H 93 02/20/18 08:41 02/20/18 08:41 02/20/18 08:41 02/20/18 08:41 02/20/18 08:41 Oxygen Flow Rate (L/min) 2 Oxygen Delivery Method Room Air Weight: 72.6 kg Body Mass Index (BMI) 37.8 Intake and Output for Last 24 Hours 02/18/18 02/19/18 02/20/18 23:59 23:59 23:59 Intake Total 1423.4 / 1423.4 420 / 420 Output Total 975 / 975 700 / 700 Balance 448.4 / 448.4 -280 / -280 A & O X 3, in NAD. Lungs: mild diffuse expiratory wheezing, no rales. CV: remote sounds, no m, g. Ext: No R groin tenderness. PP intact. Bilateral leg swellin +. 02/20/18 05:46: WBC 15.5 H, RBC 2.57 L, Hgb 7.7 L, Hct 25.0 L, MCV 97.3, MCH 30.0, MCHC 30.8 L, RDW 13.6, RDW Differential 45.7 H, Plt Count 318, MPV 9.2, Immature Gran % (Auto) 0.400, Neut % (Auto) 70.2 H, Lymph % (Auto) 17.1 L, [place] % (Auto) 7.2, Eos % (Auto) 4.8, Baso % (Auto) 0.3, Absolute Neuts (auto) 10.9 H, Total Counted Not Reportable 02/20/18 05:46: Sodium 141, Potassium 4.3, Chloride 105, Carbon Dioxide 25.0, Anion Gap 11, BUN 73 H, Creatinine 2.12 H, Est GFR (MDRD) Af Amer 30 L, Est GFR (MDRD) Non-Af 25 L, BUN/Creatinine Ratio 34.4 H, Glucose 85, Calcium 8.2 L Rhythm: EKG: ECHO: Stress Test: Cardiac Cath: PCI: CT Surgery: Holter monitor: EPS: PPM: CXR: Chest CT Scan: Medical Necessity - Tobacco Use Smoking Status: Never smoker Tobacco Use: Non-smoker Assessment/Plan Stable CV status, no angina, Arrhythmia, possible CHF, combined, chronic, class 2?. CAD, S/P OLGA PCI x 3 in the RCA, day 2, staged for more on CFX, ? LAD, in a few weeks, and/or as clinically indicated, on dual antiplatelets. Mitral regurgitation, moderate, functional, chronic. Pulmonary HTN, moderately severe, RVSP: 77 mmHg, probably secondary to Asthma, History of Pul, emboli, MR. Moderate anemia, has been present for at least 2 months, diagnosed by her PA, 8-10 weeks ago, etiology uncertain, more acute loss after PCI, no grion hematoma, but Retroperitoneal is a possibility, will check the area by Duplex US for pseudoaneurysm. I agree with the currently ordered [place]@BC transfusion, to keep hgb > 8. Acute on Chronic Kidney injury, multifactorial, contrast induced as well. Will FU closely. Thanks
--- NOTE | 2018-02-20 10:08 | PN.CARD_ITS ---
Subjectve: Feels better today. Had her usual Am wheezing this AM that is getting better with meds. Denies chest pains, groin pain. Objective: Vital Signs Temp Pulse Resp BP Pulse Ox 97.7 F L 73 18 129/61 H 93 02/20/18 08:41 02/20/18 08:41 02/20/18 08:41 02/20/18 08:41 02/20/18 08:41 Oxygen Flow Rate (L/min) 2 Oxygen Delivery Method Room Air Weight: 72.6 kg Body Mass Index (BMI) 37.8 Intake and Output for Last 24 Hours 02/18/18 02/19/18 02/20/18 23:59 23:59 23:59 Intake Total 1423.4 / 1423.4 420 / 420 Output Total 975 / 975 700 / 700 Balance 448.4 / 448.4 -280 / -280 A & O X 3, in NAD. Lungs: mild diffuse expiratory wheezing, no rales. CV: remote sounds, no m, g. Ext: No R groin tenderness. PP intact. Bilateral leg swellin +. 02/20/18 05:46: WBC 15.5 H, RBC 2.57 L, Hgb 7.7 L, Hct 25.0 L, MCV 97.3, MCH 30.0, MCHC 30.8 L, RDW 13.6, RDW Differential 45.7 H, Plt Count 318, MPV 9.2, Immature Gran % (Auto) 0.400, Neut % (Auto) 70.2 H, Lymph % (Auto) 17.1 L, [place] % (Auto) 7.2, Eos % (Auto) 4.8, Baso % (Auto) 0.3, Absolute Neuts (auto) 10.9 H , Total Counted Not Reportable 02/20/18 05:46: Sodium 141, Potassium 4.3, Chloride 105, Carbon Dioxide 25.0, Anion Gap 11, BUN 73 H, Creatinine 2.12 H, Est GFR (MDRD) Af Amer 30 L, Est GFR (MDRD) Non-Af 25 L, BUN/Creatinine Ratio 34.4 H, Glucose 85, Calcium 8.2 L Rhythm: EKG: ECHO: Stress Test: Cardiac Cath: PCI: CT Surgery: Holter monitor: EPS: PPM: CXR: Chest CT Scan: Medical Necessity - Tobacco Use Smoking Status: Never smoker Tobacco Use: Non-smoker Assessment/Plan Stable CV status, no angina, Arrhythmia, possible CHF, combined, chronic, class 2?. CAD, S/P OLGA PCI x 3 in the RCA, day 2, staged for more on CFX, ? LAD, in a few weeks, and/or as clinically indicated, on dual antiplatelets. Mitral regurgitation, moderate, functional, chronic. Pulmonary HTN, moderately severe, RVSP: 77 mmHg, probably secondary to Asthma, History of Pul, emboli, MR. Moderate anemia, has been present for at least 2 months, diagnosed by her PA, 8- 10 weeks ago, etiology uncertain, more acute loss after PCI, no grion hematoma, but Retroperitoneal is a possibility, will check the area by Duplex US for pseudoaneurysm. I agree with the currently ordered [place]@BC transfusion, to keep hgb > 8. Acute on Chronic Kidney injury, multifactorial, contrast induced as well. Will FU closely. Thanks
[2018-02-20 11:46] LABS: Bedside Glucose 157 mg/dL (70-110)
--- NOTE | 2018-02-20 11:54 | PCM.CONS.GEN ---
Problem List (1) Anemia Status: Acute Qualifiers: Anemia type: unspecified type Qualified Code(s): D64.9 - Anemia, unspecified Reason for Consult Date of Consultation: 02/20/18 Reason for Consultation: Anemia of unknown etiology History of Present Illness: The patient is a 67 year old F who was recently admitted and had a heart cath for an NSTEMI. The patient had heart cath and stents placed and was placed on aspirin and Plavix. Since that time the patient has had a 2 g drop in hemoglobin. The patient reports no nausea or vomiting. She says she has no abdominal pain. The patient reports that she has never had an EGD or colonoscopy. She does not note any bowel movements recently. She says the first day she was here she had 4 diarrhea bowel movements with no blood but since then she has not had any bowel movements. She had been tolerating a regular diet with no nausea. Past Medical History Past Medical History (Chronic Problems): Chronic Problems (Last Updated 02/18/18 @ 18:15 by Evita Wilson) Stented coronary artery (Chronic 02/18/18) OLGA to mid PDA with 2.25X32 Promus Synergy;OLGA to distal RCA 2.5X12 Promus Synergy; OLGA to proximal RCA with 3.0 X32 Promus Synergy (Dr. Ivan @ [facility]) [place] (obstructive sleep apnea) (Chronic) Hyperlipidemia (Chronic) Seasonal allergies (Chronic) Depressive disorder (Chronic) Arthritis (Chronic) Asthma (Chronic) Chronic respiratory failure (Chronic) COPD (chronic obstructive pulmonary disease) (Chronic) Type II diabetes mellitus (Chronic) Medical History: Medical History (Last Updated 02/18/18 @ 18:15 by Evita Wilson) Atherosclerotic heart disease of [place] coronary artery with other forms of angina pectoris (Acute) Onset Date: 02/18/18 I25.118 OLGA to mid PDA with 2.25X32 Promus Synergy;OLGA to distal RCA 2.5X12 Promus Synergy; OLGA to proximal RCA with 3.0 X32 Promus Synergy (Dr. Ivan @ [facility]):staged procedure for further stents to OM and CX in 3-4 weeks Pulmonary hypertension (Acute) I27.20 Non-STEMI (non-ST elevated myocardial infarction) (Acute) Onset Date: 02/17/18 I21.4 CHF (congestive heart failure) (Acute) I50.9 [place] (obstructive sleep apnea) (Chronic) G47.33 Hyperlipidemia (Chronic) E78.5 Seasonal allergies (Chronic) J30.2 Depressive disorder (Chronic) F32.9 Arthritis (Chronic) M19.90 Asthma (Chronic) J45.909 Chronic respiratory failure (Chronic) J96.10 COPD (chronic obstructive pulmonary disease) (Chronic) J44.9 Type II diabetes mellitus (Chronic) E11.9 Allergies meperidine HCl [From Demerol] Allergy (Verified 09/17/17 13:12) Other Penicillins Allergy (Verified 09/17/17 13:12) Rash Home Medications: Ambulatory Orders Medication Instructions Recorded Acetaminophen [Tylenol Tablet] 650 mg PO Q4H PRN PRN #0 tab 01/13/15 Atorvastatin Calcium [Lipitor] 20 mg PO QHS tab 01/13/15 Budesonide/Formoterol 160/4.5 2 puff INHALATION BID inhaler 01/13/15 [Symbicort 160/4.5 Mcg Inhaler (SP)] Ipratropium Lyndon 0.06% 2 spray NASAL TID PRN #0 nasal.sry 01/13/15 [ATROVENT NASAL SPRAY] Losartan Potassium [Cozaar] 25 mg PO DAILY tab 01/13/15 Nitroglycerin [Nitrostat] 0.4 mg SUBLINGUAL Q5M PRN #100 tab 01/13/15 Albuterol Aerosols [Ventolin 2.5 mg INHALATION Q4HWA.RT 02/17/18 Aerosols] Aspirin E.C. [Ecotrin] 81 mg PO DAILY@0800 02/17/18 Insulin Regular, Human [Novolin R] 18 units SQ BID 02/17/18 clopidogrel 75 mg tablet 75 mg PO DAILY 02/19/18 Surgical History: Surgical History (Last Updated 02/18/18 @ 18:15 by Evita Wilson) Stented coronary artery (Chronic) Onset Date: 02/18/18 Z95.5 OLGA to mid PDA with 2.25X32 Promus Synergy;OLGA to distal RCA 2.5X12 Promus Synergy; OLGA to proximal RCA with 3.0 X32 Promus Synergy (Dr. Ivan @ [facility]) Surgical History: cholecystectomy, tonsillectomy Psychiatric History: No pertinent psych hx RESIDENT PHYSICIAN IN RADIOLOGY History: No pertinent RESIDENT PHYSICIAN IN RADIOLOGY history Lives: Alone Smoking Status: Never smoker Tobacco Use: Non-smoker Alcohol: None Drugs: None - *Family History Maternal Family History: Family History (Last Reviewed 09/17/17 @ 18:16 by KURT Blake) Mother Hypertension Heart disease Hyperlipidemia Father Myocardial infarction Heart disease Emphysema lung Grandmother Diabetes Grandfather Epilepsia Alcoholism History Items: No pertinent history Paternal Family History: Family History (Last Reviewed 09/17/17 @ 18:16 by KURT Blake) Mother Hypertension Heart disease Hyperlipidemia Father Myocardial infarction Heart disease Emphysema lung Grandmother Diabetes Grandfather Epilepsia Alcoholism History Items: Heart Disease - Father at age of 63 because of heart attack. Review of Systems Constitutional: Denies: Anorexia, Chills, Fever HEENT: Denies: Difficulty Swallowing Cardiovascular: Reports: - - Recent NSTEMI with heart cath this hospitalization. No chest pain at this time. Respiratory: Denies: Cough, Shortness of Breath Gastrointestinal: Denies: Abdominal Pain, Diarrhea, Hematemesis, Hematochezia, Nausea, Melena, Vomiting Genitourinary: Denies: Dysuria Musculoskeletal: Denies: Joint Tenderness Skin: Denies: Jaundice Neurological: Denies: Focal weakness Psychiatric: Denies: Anxiety Hematologic/ Lymphatic: Reports: Anemia Patient Problems: Active and Suspected Problems (Last Updated 02/18/18 @ 18:15 by Evita Wilson) Anemia (Acute) Pulmonary hypertension (Acute) Non-STEMI (non-ST elevated myocardial infarction) (Acute 02/17/18) CHF (congestive heart failure) (Acute) - Physical Exam General: Alert, Oriented x3, Cooperative, No apparent distress HEENT: Atraumatic, PERRLA, EOMI, Normocephalic Oral: Moist Mucosa Lungs: Normal air movement Cardiovascular: Regular rate, Regular Rhythm Abdomen: Soft, Non Tender, Non-Distended Extremities: No clubbing, No cyanosis, - - Right groin puncture site is soft and nontender with no ecchymosis. Neurological: Cranial nerves II-XII grossly intact Psych/Mental Status: Normal Affect, Appropriate Vital Signs Temp Pulse Resp BP Pulse Ox 97.6 F L 74 18 120/55 L 94 02/20/18 11:24 02/20/18 11:24 02/20/18 11:24 02/20/18 11:24 02/20/18 11:24 Oxygen Flow Rate (L/min) 2 Oxygen Delivery Method Room Air Weight: 160 lb 0.889 oz Body Mass Index (BMI) 37.8 Intake and Output for Last 24 Hours 02/18/18 02/19/18 02/20/18 23:59 23:59 23:59 Intake Total 1423.4 / 1423.4 420 / 420 0 / 0 Output Total 975 / 975 700 / 700 Balance 448.4 / 448.4 -280 / -280 0 / 0 Laboratory Tests Past 24 Hrs 02/20/18 02/20/18 02/20/18 05:46 05:46 08:16 WBC 15.5 H RBC 2.57 L Hgb 7.7 L Hct 25.0 L MCV 97.3 MCH 30.0 MCHC 30.8 L RDW 13.6 RDW Differential 45.7 H Plt Count 318 MPV 9.2 Immature Gran % (Auto) 0.400 Neut % (Auto) 70.2 H Lymph % (Auto) 17.1 L [place] % (Auto) 7.2 Eos % (Auto) 4.8 Baso % (Auto) 0.3 Absolute Neuts (auto) 10.9 H Absolute Lymphs (auto) 2.64 Total Counted Not Reportable Sodium 141 Potassium 4.3 Chloride 105 Carbon Dioxide 25.0 Anion Gap 11 BUN 73 H Creatinine 2.12 H Estim Creat Clear Calc 29.51 Est GFR (MDRD) Af Amer 30 L Est GFR (MDRD) Non-Af 25 L BUN/Creatinine Ratio 34.4 H Glucose 85 Calcium 8.2 L Blood Type O NEGATIVE Antibody Screen NEGATIVE Crossmatch See Detail POC Glucose 02/20/18 02/20/18 02/19/18 11:31 06:39 21:28 POC Glucose 157 H 89 158 H 02/19/18 16:01 POC Glucose 146 H Assessment/Plan All Active Problems (Last Updated 02/18/18 @ 18:15 by Evita Wilson) Anemia (Acute) Atherosclerotic heart disease of [place] coronary artery with other forms of angina pectoris (Acute 02/18/18) Pulmonary hypertension (Acute) Non-STEMI (non-ST elevated myocardial infarction) (Acute 02/17/18) CHF (congestive heart failure) (Acute) 67-year-old female with anemia 1. The patient is currently receiving a transfusion for acute anemia. Patient's hemoglobin has dropped 2 g in the last 2 days with no apparent cause. I spoke with cardiology and I am getting a noncontrast CAT scan to rule out retroperitoneal hematoma. 2. As long as CAT scan is normal I will give the patient a bowel prep and perform an upper and lower endoscopy tomorrow. I explained the risks of endoscopy to the patient including bleeding, infection, perforation of the bowel. I also explained that she is at increased risk due to her blood thinners. I also discussed this with cardiology and Dr. May does not believe that a scope would be contraindicated due her cardiac status. I also explained her increased risk of heart attack and stroke given her recent [place]. The patient understands and is willing to go forth with scopes tomorrow. Sameer Isaac MD Pager: [facility] [address] [place] [address], [address] [place] [address] Office:
[2018-02-20] MEDS: Insulin Lispro 100 UNIT/ML INSULN.PEN SQ (13:13)
[2018-02-20] MEDS: Electrolyte Solution/Peg's 4000 ML 2000 ML PO (14:50)
[2018-02-20 16:12] LABS: Hematocrit 28.7 % (37-47); Hemoglobin 9.3 g/dl (12.0-15.0)
[2018-02-20 16:31] LABS: Bedside Glucose 113 mg/dL (70-110)
[2018-02-20] MEDS: Atorvastatin Calcium 80 MG Tablet PO (22:05)
[2018-02-20 23:30] LABS: Bedside Glucose 64 mg/dL (70-110)
--- NOTE | 2018-02-20 23:30 | NURSING ---
Pt. diaphoretic. Check BG was 64. Notifying Dr. Barker.
[2018-02-20] MEDS: Dextrose 50%-Water 25 GM/50 ML DISP.SYRIN IV (23:55)
[2018-02-21] VITALS (21 sets, daily range): BP systolic 114–150; BP diastolic 51–74; PULSE 65–91; RESP 12–22; TEMP 36.4–37.2; O2SAT 93–99; BMI 37.2
[2018-02-21 00:01] LABS: Bedside Glucose 93 mg/dL (70-110)
[2018-02-21 00:46] LABS: Bedside Glucose 184 mg/dL (70-110)
[2018-02-21] MEDS: LORazepam 1 MG Tablet PO (01:44)
[2018-02-21 04:46] LABS: Partial Thromboplast Time 27.8 Seconds (24.1-36.2); Prothrombin Time (Protime)PT. 12.7 SECONDS (11.7-14.9)
[2018-02-21 04:56] LABS: Anion Gap 11 (5-15); BUN 57 mg/dL (7-18); Calcium,Total 7.9 mg/dL (8.5-10.1); Chloride 108 mmol/L (98-107); Creatinine, Serum 1.54 mg/dL (0.55-1.02); EST Glomerular Filtration Rate 36 mL/min (>60); Est Glom Filt Rate - Afr Amer 43 mL/min (>60); Estimated Creatinine Clearance 40.63 ml/min; Glucose 68 mg/dL (74-106); Potassium 3.7 mmol/L (3.5-5.1); Sodium Level 144 mmol/L (136-145)
[2018-02-21 05:02] LABS: Absolute Lymphocyte Count 1.87 X10^3/ul (0.83-4.51); Absolute Neutrophil Count 11.5 X10^3/uL (2.0-7.7); Basophil# 0.03 X10^3/uL; Basophil% 0.2 % (0-1); Eosinophil# 0.72 X10^3/uL; Eosinophils% 4.8 % (0-5); Hematocrit 27.4 % (37-47); Hemoglobin 8.7 g/dl (12.0-15.0); Lymphocyte # 1.87 X10^3/ul (4.0); Lymphocyte % 12.4 % (19-41); Mean Corp Hgb Conc 31.8 g/gl (32-36); Mean Corpuscular Hgb 29.3 pg (27.0-32.0); Mean Corpuscular Volume 92.3 fL (81-99); Monocyte# 0.97 X10^3/uL; Monocyte% 6.4 % (0-10); Neutrophil # 11.46 X10^3/uL (2.7-7.7); Neutrophil % 75.7 % (47-70); Platelet Count 301 K/mm3 (150-450); RBC Distribution Width CV 15.6 % (11.6-14.6); RBC Distribution Width SD 50.6 fl (35.1-43.9); Red Blood Count 2.97 M/mm3 (4.2-5.4); White Blood Count 15.1 K/mm3 (4.4-11.0)
[2018-02-21 05:12] LABS: POSITIVE COUNT NO; POSITIVE DIFFERENTIAL NO; POSITIVE MORPHOLOGY NO
[2018-02-21] MEDS: 0.9% Normal Saline 1,000 ML 15 ML IV (05:43)
[2018-02-21] MEDS: Dextrose 50%-Water 25 GM/50 ML DISP.SYRIN IV (06:54)
[2018-02-21] MEDS: 0.9% NaCl Peripheral Flush Adult/Peds IV ×3 (06:55→16:25)
--- NOTE | 2018-02-21 07:03 | NURSING ---
Pt diaphoretic when FBS checked today, BG 51. One amp D50 given.
[2018-02-21 07:36] LABS: Bedside Glucose 180 mg/dL (70-110)
--- NOTE | 2018-02-21 07:50 | COLBX_PTH ---
PATIENT: BINA GOLDSTEIN I LOC: [facility] U#:[id number] AGE/SX: 67/F ROOM: [facility] RE02/17/[address]: Dr. Hossein Dodd MD : 1950 BED: 1 DIS: 02/22/2018 SPEC #: [id number] RECD: 02/21/18 09:13 STATUS: LILLIAN NAN #: [id number] MARK ANTHONY: 02/21/18 07:[address]: Sameer Isaac DEPT: SURGICAL PATHOLOGY RECD BY: Bradford Floyd ENTERED: 02/23/18 08:52 SP TYPE: COLON BX OTHR DR: MD Dr. Hossein Flaherty MD Dr. Nicholas F Kotsonis, MD [facility] Tissues: Cecum, NOS Procedures: Surgery Specimen Level IV HEADER OPERATION: [place] [place] DIAGNOSIS: Anemia TISSUE SUBMITTED: Cecal polyp MICROSCOPIC DIAGNOSIS Cecal polyp, biopsy: Tubular adenoma. CARSON:phoebe 02/24/18 MICROSCOPIC DESCRIPTION Slides are reviewed. GROSS DESCRIPTION Received in fixative is one container labeled with the patient's name and designated cecal polyp. The specimen consists of one irregular fragment of light lopez soft tissue that measures 0.3 x 0.3 x 0.2 cm. The specimen is totally submitted in one cassette. / CARSON:phoebe 02/23/18 TC:1 CPT: 21558
--- NOTE | 2018-02-21 08:38 | PCM.OPRPT ---
Problem List (1) Anemia Status: Acute Qualifiers: Anemia type: unspecified type Qualified Code(s): D64.9 - Anemia, unspecified Report of Operation Date of Procedure: 02/21/18 Pre-Operative Diagnosis: Anemia Post-Operative Diagnosis: 1. Normal EGD. 2. Cecal polyp Surgery/Procedure Performed:: 1. EGD. 2. Colonoscopy with snare polypectomy Specimen's removed: Cecal polyp Description of Procedure: The major risks and benefits associated with the procedure were explained to the patient in detail. The patient verbalized understanding and agreement with the same. The patient was then placed in the left lateral decubitus position. IV sedation was started by anesthesia. The endoscope was then advanced under direct visualization over the tongue, into the esophagus, stomach and duodenum. It was slowly withdrawn and the mucosa was carefully evaluated. Duodenal mucosal abnormalities were not visualized. Antegrade and retrograde views of the stomach were normal and did not reveal a hiatal hernia or ulceration. Gastric folds were normal. There were no signs of old blood in the stomach or any ulcerations. The scope was then withdrawn through the GE junction and careful examination did not demonstrate any mucosal abnormalities. No evidence of Lilly's esophagus was apparent. Careful examination of the remainder of the esophagus was normal. The scope was then withdrawn from the patient. The patient was then turned for the colonoscopy portion of the procedure. A digital rectal exam was performed. This examination was within normal limits. A well-lubricated colonoscope was then inserted into the rectum and advanced under direct visualization to the level of the cecum. The bowel prep was good. The cecum was identified by both visual and anatomic landmarks. A photograph was taken of the end of the cecum. There was no blood or active bleeding in the colon. The patient did have a polyp in the cecum which was removed with cautery snare. Hemostasis was good. The scope was then fully withdrawn while examining the color, texture, anatomy and integrity of the mucosa from the cecum to the anal canal. The findings were consistent with normal colonic mucosa. The patient did have extensive diverticulosis of the colon. Upon reaching the rectum the scope was retroflexed to examine the distal rectal vault. The scope was then straightened and was completely retrieved upon exiting the anal canal and the procedure was terminated. The patient was then transferred to the recovery room in stable condition. Recommendations for follow up: Repeat colonoscopy based on polyp pathology. There was no bleeding on EGD or colonoscopy. There is no stigmata of bleeding or old blood clots in either. Recommend starting regular diet and following hemoglobin.
[2018-02-21] MEDS: Furosemide 40 MG Tablet PO (09:49)
[2018-02-21] MEDS: Aspirin E.C. 81 MG Tablet PO (09:49)
[2018-02-21] MEDS: Carvedilol 3.125 MG TABLET PO ×2 (09:50→22:19)
[2018-02-21] MEDS: Isosorbide Mononitrate 30 MG Tablet PO (09:50)
[2018-02-21] MEDS: Ferrous Sulfate 325 MG Tablet PO ×2 (09:50→16:26)
[2018-02-21] MEDS: Losartan Potassium 25 MG Tablet PO (09:50)
[2018-02-21] MEDS: Clopidogrel Bisulfate 75 MG Tablet PO (09:51)
[2018-02-21] MEDS: Heparin Injection (Vial) 5,000 UNIT/ML VIAL 5000 UNIT SC ×2 (09:56→22:20)
--- NOTE | 2018-02-21 10:05 | PCM.PROGNOTE ---
Patient Problems: Active and Suspected Problems (Last Updated 02/18/18 @ 18:15 by Evita Wilson) Anemia (Acute) Pulmonary hypertension (Acute) Non-STEMI (non-ST elevated myocardial infarction) (Acute 02/17/18) CHF (congestive heart failure) (Acute) Subjective: Chief complaint: Follow-up after admission for acute systolic CHF, non-ST elevation [place], acute on chronic hypoxic respiratory failure and probable COPD exacerbation. Hospital course complicated by acute on chronic anemia requiring blood transfusion as well as acute kidney injury. Patient seen and examined. No acute events overnight. She just came back from the EGD and colonoscopy. She complains of mild cough. Shortness of breath remained stable. Denies any chest pain. Denied abdominal pain, nausea vomiting. Her vital signs are stable, pulse ox is maintained on room air. - Physical Exam General: Alert, Oriented x3, Cooperative, No apparent distress HEENT: Atraumatic, PERRLA, EOMI, Normocephalic Oral: Moist Mucosa, No Gingival or Mucosal Lesions/ Ulcerations Neck: Supple, No JVD, Negative Carotid Bruits, Trachea Midline, Thyroid Normal Size and Texture Lungs: Clear to auscultation, No rhonchi, No wheeze, No rales, Diminished Cardiovascular: Regular rate, Regular Rhythm, Normal S1, Normal S2, No murmurs Abdomen: Bowel Sounds Present, Soft, Non Tender, Non-Distended, No Hepato-splenomegaly Extremities: No clubbing, No cyanosis, No edema Skin: No rashes, No breakdown Lymphatic: No Cervical, Supraclavicular, or Inguinal Adenopathy Neurological: Cranial nerves II-XII grossly intact, Neuro grossly intact Psych/Mental Status: Normal Affect, Appropriate, Alert and oriented to time, place, person, mood and affect Vital Signs Temp Pulse Resp BP Pulse Ox 97.5 F L 87 18 149/74 H 93 02/21/18 09:32 02/21/18 09:32 02/21/18 09:32 02/21/18 09:32 02/21/18 09:32 Oxygen Flow Rate (L/min) 2 Oxygen Delivery Method Room Air Weight: 161 lb 13.109 oz Body Mass Index (BMI) 37.2 Intake and Output for Last 24 Hours 02/19/18 02/20/18 02/21/18 23:59 23:59 23:59 Intake Total 420 / 420 2750 / 2750 3800 / 3800 Output Total 700 / 700 300 / 300 Balance -280 / -280 2450 / 2450 3800 / 3800 Microbiology Past 72 Hours 02/20/18 18:50 Stool Occult Blood (MISBAH) - Final Stool Laboratory Tests Past 24 Hrs 02/20/18 02/20/18 02/21/18 08:16 16:02 04:18 WBC 15.1 H RBC 2.97 L Hgb 9.3 L 8.7 L Hct 28.7 L 27.4 L MCV 92.3 MCH 29.3 MCHC 31.8 L RDW 15.6 H RDW Differential 50.6 H Plt Count 301 MPV 9.0 Immature Gran % (Auto) 0.500 Neut % (Auto) 75.7 H Lymph % (Auto) 12.4 L [place] % (Auto) 6.4 Eos % (Auto) 4.8 Baso % (Auto) 0.2 Absolute Neuts (auto) 11.5 H Absolute Lymphs (auto) 1.87 Total Counted Not Reportable PT INR APTT Sodium Potassium Chloride Carbon Dioxide Anion Gap BUN Creatinine Estim Creat Clear Calc Est GFR (MDRD) Af Amer Est GFR (MDRD) Non-Af BUN/Creatinine Ratio Glucose Calcium Blood Type O NEGATIVE Antibody Screen NEGATIVE Crossmatch See Detail 02/21/18 02/21/18 04:18 04:18 WBC RBC Hgb Hct MCV MCH MCHC RDW RDW Differential Plt Count MPV Immature Gran % (Auto) Neut % (Auto) Lymph % (Auto) [place] % (Auto) Eos % (Auto) Baso % (Auto) Absolute Neuts (auto) Absolute Lymphs (auto) Total Counted PT 12.7 INR 1.0 APTT 27.8 Sodium 144 Potassium 3.7 Chloride 108 H Carbon Dioxide 25.0 Anion Gap 11 BUN 57 H Creatinine 1.54 H Estim Creat Clear Calc 40.63 Est GFR (MDRD) Af Amer 43 L Est GFR (MDRD) Non-Af 36 L BUN/Creatinine Ratio 37.0 H Glucose 68 L Calcium 7.9 L Blood Type Antibody Screen Crossmatch POC Glucose 02/21/18 02/21/18 02/20/18 07:21 00:30 23:27 POC Glucose 180 H 184 H 64 L 02/20/18 02/20/18 02/20/18 21:55 16:21 11:31 POC Glucose 93 113 H 157 H Medical Necessity - Tobacco Use Smoking Status: Never smoker Tobacco Use: Non-smoker Assessment/Plan All Active Problems (Last Updated 02/18/18 @ 18:15 by Evita Wilson) Anemia (Acute) Atherosclerotic heart disease of [place] coronary artery with other forms of angina pectoris (Acute 02/18/18) Pulmonary hypertension (Acute) Non-STEMI (non-ST elevated myocardial infarction) (Acute 02/17/18) CHF (congestive heart failure) (Acute) This is a 67 years old female patient presented to the emergency department because of shortness of breath and she was found to have acute systolic CHF, non-ST elevation [place] as well as probable COPD exacerbation complicated by acute on chronic hypoxic respiratory failure. Hospital course complicated by acute on chronic anemia requiring blood transfusion as well as acute kidney injury. #1 acute combined systolic and diastolic CHF: She is on oral Lasix, Coreg, isosorbide mononitrate and losartan. She has no more shortness of breath. Her vital signs are stable, pulse ox is maintained on room air. 2D echocardiogram revealed ejection fraction of 50%, stage II diastolic dysfunction, posterior basal hypokinetic wall, inferior basal and lateral basal mild hypokinesia, severe pulmonary hypertension. Today's creatinine is coming down, it is 1.54. Plan: Continue same treatment, possible DC home tomorrow. #2 acute non-ST elevation [place]: Status post cardiac catheterization, PTCA/OLGA to distal RCA and proximal RCA. Hemodynamically stable. She is on aspirin, Plavix statins, beta blockers, nitrates and losartan. 2D echocardiogram reviewed as above. Plan to continue same treatment. #3 acute on chronic anemia: It is normocytic anemia. She received 1 unit of packed RBCs, today's hemoglobin is 8.7 g/dL. Today, she underwent upper EGD and colonoscopy that showed no evidence of active upper or lower GI bleed. Found to have cecal polyp, status post polypectomy, sent for histopathology. Plan to continue iron supplement and Protonix p.o, repeat CBC tomorrow morning. #4 Probable COPD exacerbation/acute on chronic hypoxic respiratory failure: She is on bronchodilators, prednisone discontinued. The acute on chronic hypoxic respiratory failure is likely due to CHF more than COPD exacerbation. Her chest x-ray showed no acute infiltrate. Today, pulse ox is 98% on room air. #5 acute kidney injury: Baseline creatinine has been normal. Admission creatinine was 1.09. She received small amount of IV fluids yesterday, creatinine came down to 1.54 today, improved. This is likely because of diuretics in addition to IV contrast for cardiac catheterization. Plan to give another 250 cc of IV fluids #6 type 2 diabetes mellitus, uncontrolled: Blood sugar under better control. She is on Lantus twice daily as well as sliding scale. Hemoglobin A1c is 8.9. Plan to monitor. #7 hypertension: Blood pressure stable. Continue losartan, metoprolol, IV hydralazine as needed. #8 obstructive sleep apnea: Continue BiPAP at night. #9 hyperlipidemia: Continue statins. #10 DVT prophylaxis: SCDs. This note was generated with [employer] dictation software. It may contain incorrect words, spelling, and punctuation that were not noted in checking the note before signing. Code Visit Inpatient E&M: 45547 Subs Hosp L2
--- NOTE | 2018-02-21 10:14 | PCM.PN.CARD ---
Subjectve: Feels better today. No change of her chronic asthma. Objective: Vital Signs Temp Pulse Resp BP Pulse Ox 97.5 F L 87 18 149/74 H 93 02/21/18 09:32 02/21/18 09:32 02/21/18 09:32 02/21/18 09:32 02/21/18 09:32 Oxygen Flow Rate (L/min) 2 Oxygen Delivery Method Room Air Weight: 73.4 kg Body Mass Index (BMI) 37.2 Intake and Output for Last 24 Hours 02/19/18 02/20/18 02/21/18 23:59 23:59 23:59 Intake Total 420 / 420 2750 / 2750 3800 / 3800 Output Total 700 / 700 300 / 300 Balance -280 / -280 2450 / 2450 3800 / 3800 02/20/18 16:02: Hgb 9.3 L, Hct 28.7 L 02/21/18 04:18: WBC 15.1 H, RBC 2.97 L, Hgb 8.7 L, Hct 27.4 L, MCV 92.3, MCH 29.3, MCHC 31.8 L, RDW 15.6 H, RDW Differential 50.6 H, Plt Count 301, MPV 9.0, Immature Gran % (Auto) 0.500, Neut % (Auto) 75.7 H, Lymph % (Auto) 12.4 L, [place] % (Auto) 6.4, Eos % (Auto) 4.8, Baso % (Auto) 0.2, Absolute Neuts (auto) 11.5 H, Total Counted Not Reportable 02/21/18 04:18: Sodium 144, Potassium 3.7, Chloride 108 H, Carbon Dioxide 25.0, Anion Gap 11, BUN 57 H, Creatinine 1.54 H, Est GFR (MDRD) Af Amer 43 L, Est GFR (MDRD) Non-Af 36 L, BUN/Creatinine Ratio 37.0 H, Glucose 68 L, Calcium 7.9 L 02/21/18 04:18: PT 12.7, INR 1.0, APTT 27.8 Rhythm: EKG: ECHO: Stress Test: Cardiac Cath: PCI: CT Surgery: Holter monitor: EPS: PPM: CXR: Chest CT Scan: Medical Necessity - Tobacco Use Smoking Status: Never smoker Tobacco Use: Non-smoker Assessment/Plan Stable CV status, no angina, Arrhythmia, possible CHF, combined, chronic, class 2?. CAD, S/P OLGA PCI x 3 in the RCA, day 2, staged for more on CFX, ? LAD, in a few weeks, and/or as clinically indicated, on dual antiplatelets. Mitral regurgitation, moderate, functional, chronic. Pulmonary HTN, moderately severe, RVSP: 77 mmHg, probably secondary to Asthma, History of Pul, emboli, MR. Moderate anemia, has been present for at least 2 months, diagnosed by her PA, 8-10 weeks ago, etiology uncertain, more acute loss after PCI, no grion hematoma, but Retroperitoneal is a possibility, will check the area by Duplex US for pseudoaneurysm. I agree with the currently ordered HI@BC transfusion, to keep hgb > 8. Acute on Chronic Kidney injury, multifactorial, contrast induced as well. EGD, Coloscopy report noted, S/P Colon polypectomy. Will FU in AM. Thanks
[2018-02-21] MEDS: Ipratropium/Albuterol Sulfate 3 ML AMPUL.NEB INHALATION ×3 (11:01→18:56)
[2018-02-21 11:15] LABS: Bedside Glucose 99 mg/dL (70-110)
[2018-02-21] MEDS: Pantoprazole Sodium 40 MG Tablet PO (13:26)
[2018-02-21] MEDS: 0.9% Normal Saline 1,000 ML 75 ML IV (13:26)
[2018-02-21 13:40] LABS: Bedside Glucose 119 mg/dL (70-110)
[2018-02-21 15:38] LABS: Hematocrit 30.3 % (37-47); Hemoglobin 9.7 g/dl (12.0-15.0)
[2018-02-21 16:30] LABS: Bedside Glucose 113 mg/dL (70-110)
[2018-02-21] MEDS: Budesonide Respules 0.5 MG/2 ML AMPUL.NEB. INHALATION (18:57)
[2018-02-21] MEDS: Acetaminophen 325 MG Tablet 650 MG PO (20:36)
[2018-02-21] MEDS: Atorvastatin Calcium 80 MG Tablet PO (22:22)
[2018-02-21 22:51] LABS: Bedside Glucose 84 mg/dL (70-110)
[2018-02-22] VITALS (12 sets, daily range): BP systolic 110–159; BP diastolic 49–70; PULSE 68–86; RESP 12–20; TEMP 36.4–36.8; O2SAT 93–98
[2018-02-22 00:41] LABS: Bedside Glucose 51 mg/dL (70-110)
[2018-02-22] MEDS: Acetaminophen 325 MG Tablet 650 MG PO (06:07)
[2018-02-22 06:54] LABS: Absolute Lymphocyte Count 2.16 X10^3/ul (0.83-4.51); Absolute Neutrophil Count 6.8 X10^3/uL (2.0-7.7); Basophil# 0.03 X10^3/uL; Basophil% 0.3 % (0-1); Eosinophil# 0.85 X10^3/uL; Hematocrit 27.2 % (37-47); Hemoglobin 8.5 g/dl (12.0-15.0); Lymphocyte # 2.16 X10^3/ul (4.0); Lymphocyte % 20.4 % (19-41); Mean Corp Hgb Conc 31.3 g/gl (32-36); Mean Corpuscular Hgb 29.6 pg (27.0-32.0); Mean Corpuscular Volume 94.8 fL (81-99); Mean Platelet Vol. 9.4 fl (6.2-12.0); Monocyte% 6.6 % (0-10); Neutrophil # 6.78 X10^3/uL (2.7-7.7); Platelet Count 280 K/mm3 (150-450); RBC Distribution Width CV 15.3 % (11.6-14.6); RBC Distribution Width SD 50.3 fl (35.1-43.9); Red Blood Count 2.87 M/mm3 (4.2-5.4); White Blood Count 10.6 K/mm3 (4.4-11.0)
[2018-02-22 06:55] LABS: POSITIVE COUNT NO; POSITIVE DIFFERENTIAL NO; POSITIVE MORPHOLOGY NO
[2018-02-22 07:15] LABS: Anion Gap 10 (5-15); BUN 40 mg/dL (7-18); BUN/Creat Ratio 33.1 RATIO (10-20); Calcium,Total 8.1 mg/dL (8.5-10.1); Chloride 112 mmol/L (98-107); Creatinine, Serum 1.21 mg/dL (0.55-1.02); EST Glomerular Filtration Rate 47 mL/min (>60); Est Glom Filt Rate - Afr Amer 57 mL/min (>60); Estimated Creatinine Clearance 53.42 ml/min; Glucose 68 mg/dL (74-106); Potassium 3.8 mmol/L (3.5-5.1); Sodium Level 147 mmol/L (136-145)
[2018-02-22] MEDS: Ipratropium/Albuterol Sulfate 3 ML AMPUL.NEB INHALATION ×2 (07:27→15:28)
[2018-02-22] MEDS: Budesonide Respules 0.5 MG/2 ML AMPUL.NEB. INHALATION (07:27)
[2018-02-22 07:46] LABS: Bedside Glucose 76 mg/dL (70-110)
[2018-02-22] MEDS: Ferrous Sulfate 325 MG Tablet PO ×2 (08:22→17:13)
[2018-02-22] MEDS: Aspirin E.C. 81 MG Tablet PO (08:24)
--- NOTE | 2018-02-22 08:36 | PCM.DC ---
- Discharge Diagnoses Current Active Problems: Current Active and Chronic Problems (Last Updated 02/18/18 @ 18:15 by Evita Wilson) Anemia (Acute) Pulmonary hypertension (Acute) Non-STEMI (non-ST elevated myocardial infarction) (Acute 02/17/18) CHF (congestive heart failure) (Acute) [place] (obstructive sleep apnea) (Chronic) You will use the following diet at home:: Calorie/Carbohydrate Controlled (specify 1200, 1400, etc) - 1800 lb, Cardiac Your food should be the consistency of: Regular Discharge Activity: Return to Normal Activity Weight Bearing Status: Weight bearing as tolerated Call your doctor if you observe: Fever of 101 or Higher, Shortness of breath, Dizziness, Fainting spells, Chest pain, Increased palpitations (irregular heartbeat), Uncontrolled pain Allergies/Adverse Reactions: Allergies meperidine HCl [From Demerol] Allergy (Verified 09/17/17 13:12) Other Penicillins Allergy (Verified 09/17/17 13:12) Rash Medications to take at Discharge Acetaminophen [Tylenol Tablet] 650 mg PO Q4H PRN PRN #0 tab 01/13/15 Budesonide/Formoterol 160/4.5 [Symbicort 160/4.5 Mcg Inhaler (SP)] 2 puff INHALATION BID inhaler 01/13/15 Ipratropium [place] 0.06% [ATROVENT NASAL SPRAY] 2 spray NASAL TID PRN #0 nasal.sry 01/13/15 Losartan Potassium [Cozaar] 25 mg PO DAILY tab 01/13/15 Nitroglycerin [Nitrostat] 0.4 mg SUBLINGUAL Q5M PRN #100 tab 01/13/15 Albuterol Aerosols [Ventolin Aerosols] 2.5 mg INHALATION Q4HWA.RT 02/17/18 Aspirin E.C. [Ecotrin] 81 mg PO DAILY@0800 02/17/18 Insulin Regular, Human [Novolin R] 18 units SQ BID 02/17/18 clopidogrel 75 mg tablet 75 mg PO DAILY 02/19/18 Atorvastatin Calcium [Lipitor] 80 mg PO QHS #90 tab 02/22/18 Carvedilol [Coreg (Beta Kevin)] 3.125 mg PO BID #90 tab 02/22/18 Clopidogrel Bisulfate [Plavix] 75 mg PO DAILY #90 tab 02/22/18 Ferrous Sulfate 325 mg PO BIDCM #90 tab 02/22/18 Furosemide [Lasix] 40 mg PO DAILY #30 tab 02/22/18 Isosorbide Mononitrate [Imdur] 30 mg PO DAILY #30 tab 02/22/18 Pantoprazole Sodium [Protonix] 40 mg PO DAILY #30 tab 02/22/18 The following prescriptions were given: Atorvastatin Calcium [Lipitor] 80 mg PO QHS #90 tab Clopidogrel Bisulfate [Plavix] 75 mg PO DAILY #90 tab Furosemide [Lasix] 40 mg PO DAILY #30 tab Isosorbide Mononitrate [Imdur] 30 mg PO DAILY #30 tab Pantoprazole Sodium [Protonix] 40 mg PO DAILY #30 tab Carvedilol [Coreg (Beta Kevin)] 3.125 mg PO BID #90 tab Ferrous Sulfate 325 mg PO BIDCM #90 tab Primary Care Physician: [facility],[place] [Primary Care Provider] - Please follow up with your Primary Care Physician in: 1 week. Test Results: Test results from this visit will be discussed in further detail at your follow-up appointment, if applicable. Please Follow Up With: Lobo Ivan MD When: 1-2 weeks.
[2018-02-22] MEDS: Isosorbide Mononitrate 30 MG Tablet PO (10:51)
[2018-02-22] MEDS: Carvedilol 3.125 MG TABLET PO (10:51)
[2018-02-22] MEDS: Losartan Potassium 25 MG Tablet PO (10:51)
[2018-02-22] MEDS: Heparin Injection (Vial) 5,000 UNIT/ML VIAL 5000 UNIT SC (10:51)
[2018-02-22] MEDS: Pantoprazole Sodium 40 MG Tablet PO (10:52)
[2018-02-22] MEDS: Furosemide 40 MG Tablet PO (10:52)
[2018-02-22] MEDS: Clopidogrel Bisulfate 75 MG Tablet PO (10:52)
[2018-02-22] MEDS: Insulin Lispro 100 UNIT/ML INSULN.PEN SQ (10:53)
[2018-02-22 11:41] LABS: Bedside Glucose 194 mg/dL (70-110)
--- NOTE | 2018-02-22 12:16 | PCM.DC.SUM ---
Discharge Date and Diagnosis - Problem List Patient Problems: Active and Suspected Problems (Last Updated 02/18/18 @ 18:15 by Evita Wilson) Anemia (Acute) Pulmonary hypertension (Acute) Non-STEMI (non-ST elevated myocardial infarction) (Acute 02/17/18) CHF (congestive heart failure) (Acute) Date of Admission: 02/17/18 Date of Discharge: 02/22/18 - Primary Discharge Diagnosis Active and Suspected Problems (Last Updated 02/18/18 @ 18:15 by Evita Wilson) #1 acute combined systolic and diastolic CHF. #2 acute non-ST elevation VA. #3 acute on chronic anemia required blood transfusion. #4 probable COPD exacerbation/acute on chronic hypoxic respiratory failure. #5 acute kidney injury. - Secondary Discharge Diagnosis Chronic Problems (Last Updated 02/18/18 @ 18:15 by Evita Wilson) Stented coronary artery (Chronic 02/18/18) OLGA to mid PDA with 2.25X32 Promus Synergy;OLGA to distal RCA 2.5X12 Promus Synergy; OLGA to proximal RCA with 3.0 X32 Promus Synergy (Dr. Ivan @ [facility]) [place] (obstructive sleep apnea) (Chronic) Hyperlipidemia (Chronic) Seasonal allergies (Chronic) Depressive disorder (Chronic) Arthritis (Chronic) Asthma (Chronic) Chronic respiratory failure (Chronic) COPD (chronic obstructive pulmonary disease) (Chronic) Type II diabetes mellitus (Chronic) Hospital Course and Treatment Imaging Results: Clinical Impression(s) from Imaging Studies Chest X-Ray 02/17/18 13:42 IMPRESSION: Findings in keeping with a mild degree of CHF. Mild cardiomegaly. Electronically Signed: Abdulkadir Martell MD at 14:23 EDT Tel [phone], Service support , Abdomen/Pelvis CT 02/20/18 11:48 IMPRESSION: Bilateral pleural effusions associated with dependent consolidation within the lower lobes. Fibroid uterus. Colonic diverticulosis. Atherosclerosis. Degenerative changes. Grade 1 anterior spondylolisthesis of L4 on L5. Electronically Signed: Bee Zendejas MD at 16:51 EDT Tel , Service support , Dr. Ivan, cardiology. Dr. khan, general surgery. Operations: None Procedures: Blood transfusion, Cardiac catheterization, Colonoscopy, EGD, EKG Summary of Care Provided: Patient seen and examined on the day of discharge and appeared to be stable to be discharged home. She denied any symptoms, normal shortness of breath. Denied chest pain, dizziness or lightheadedness. Her vital signs are stable. - Physical Exam General: Alert, Oriented x3, Cooperative, No apparent distress. HEENT: Atraumatic, PERRLA, EOMI. Neck: Supple, No JVD, Negative Carotid Bruits, Trachea Midline, Thyroid Normal. Lungs: Clear to auscultation, Normal air movement, No rhonchi, No wheeze, No rales. Cardiovascular: Regular rate, Regular Rhythm, Normal S1, Normal S2, PMI Normal. Abdomen: Bowel Sounds Present, Soft, Non Tender, Non-Distended, No Hepato-splenomegaly. Extremities: No clubbing, No cyanosis, No edema Skin: No rashes, No breakdown Neurological: Neuro grossly intact Vital Signs are stable. Hospital course: This is a 67 years old female patient presented to the emergency department because of shortness of breath and she was found to have acute combined systolic and diastolic CHF, non-ST elevation VA as well as probable COPD exacerbation complicated by acute on chronic hypoxic respiratory failure. Hospital course complicated by acute on chronic anemia requiring blood transfusion as well as acute kidney injury. #1 acute combined systolic and diastolic CHF: Treated with IV Lasix for diuresis, started on Coreg and isosorbide mononitrate and continued on losartan. 2D echocardiogram revealed ejection fraction of 50%, stage II diastolic dysfunction, posterior basal hypokinetic wall, inferior basal and lateral basal mild hypokinesia, severe pulmonary hypertension. With IV Lasix therapy, patient symptoms improved, shortness of breath improved and her volume status stabilized. She was discharged home on Lasix, Coreg, losartan and isosorbide mononitrate. #2 acute non-ST elevation VA: Status post cardiac catheterization, PTCA/OLGA to distal RCA and proximal RCA. Initially, she was treated with IV heparin drip as well as aspirin, statins, beta blockers and losartan. After she underwent cardiac catheterization with PCI, IV heparin drip was continued and she was maintained on aspirin, statins, beta blockers, Plavix and losartan as well as nitrate. He was discharged on aspirin, Plavix, statins, Coreg, losartan and isosorbide mononitrate, plan to follow-up with cardiology as outpatient. #3 acute on chronic anemia: It is normocytic anemia. It is attributed to iron deficiency anemia. She received 1 unit of packed RBCs. Her stool was negative for occult blood. She underwent upper EGD and colonoscopy that showed no evidence of active upper or lower GI bleed. Found to have cecal polyp, status post polypectomy, sent for histopathology. Serum iron and iron saturation were low, TIBC and ferritin were normal. No obvious source of bleeding was identified. Patient was discharged on iron supplement, order given to repeat CBC in 1 week. #4 Probable COPD exacerbation/acute on chronic hypoxic respiratory failure: Initially treated with bronchodilators and IV steroids. A chest x-ray showed no pneumonia. With bronchodilators and IV Lasix therapy, patient symptoms improved and she was able to come off oxygen and maintained her pulse ox on room air. There was no indication to treat patient with antibiotics or tapering course of prednisone because her symptoms are mainly due to CHF. #5 acute kidney injury: Baseline creatinine has been normal. It is attributed to diuresis as well as IV contrast that she received for cardiac catheterization. Her creatinine went up to 2.12. She received small amounts of intermittent IV fluids and her creatinine came down to 1.21 on discharge, improved. Order given to repeat BMP in 1 week. #6 type 2 diabetes mellitus, uncontrolled: Initially, her blood sugar has been high in the 200s. Although we kept her on her her regular home dosage of Lantus, her blood sugar after the third day has been stable and in the range of 100-200. Hemoglobin A1c was 8.9. Patient discharged home on the same doses of Lantus insulin, recommended to check blood sugar at least 4 times daily, follow-up with PCP. #7 hypertension: Blood pressure initially was elevated. She was started on new antihypertensive medications as well as her home antihypertensive medication were adjusted. Her blood pressure improved and she was discharged on Coreg, Lasix, losartan and isosorbide mononitrate. #8 obstructive sleep apnea: Continued on BiPAP at night. #9 hyperlipidemia: Continued on statins. Patient discharged home in a stable medical condition, discharged on aspirin, statins, Plavix, Coreg, losartan and isosorbide mononitrate for non-ST elevation VA status post PCI and stents to left circumflex and RCA, discharged on iron supplement for iron deficiency anemia, discharged on Lasix for CHF, order given to repeat CBC and BMP in 1 week, recommended follow-up with PCP in 1 week and follow-up with cardiology in 1-2 weeks. This note was generated with Vidly dictation software. It may contain incorrect words, spelling, and punctuation that were not noted in checking the note before signing. Discharge Activity: Return to Normal Activity Weight Bearing Status: Weight bearing as tolerated Call your doctor if you observe: Fever of 101 or Higher, Shortness of breath, Dizziness, Fainting spells, Chest pain, Increased palpitations (irregular heartbeat), Uncontrolled pain Home Medications: Medications to take at Discharge Acetaminophen [Tylenol Tablet] 650 mg PO Q4H PRN PRN #0 tab 01/13/15 Budesonide/Formoterol 160/4.5 [Symbicort 160/4.5 Mcg Inhaler (SP)] 2 puff INHALATION BID inhaler 01/13/15 Ipratropium [place] 0.06% [ATROVENT NASAL SPRAY] 2 spray NASAL TID PRN #0 nasal.sry 01/13/15 Losartan Potassium [Cozaar] 25 mg PO DAILY tab 01/13/15 Nitroglycerin [Nitrostat] 0.4 mg SUBLINGUAL Q5M PRN #100 tab 01/13/15 Albuterol Aerosols [Ventolin Aerosols] 2.5 mg INHALATION Q4HWA.RT 02/17/18 Aspirin E.C. [Ecotrin] 81 mg PO DAILY@0800 02/17/18 Insulin Regular, Human [Novolin R] 18 units SQ BID 02/17/18 clopidogrel 75 mg tablet 75 mg PO DAILY 02/19/18 Atorvastatin Calcium [Lipitor] 80 mg PO QHS #90 tab 02/22/18 Carvedilol [Coreg (Beta Kevin)] 3.125 mg PO BID #90 tab 02/22/18 Clopidogrel Bisulfate [Plavix] 75 mg PO DAILY #90 tab 02/22/18 Ferrous Sulfate 325 mg PO BIDCM #90 tab 02/22/18 Furosemide [Lasix] 40 mg PO DAILY #30 tab 02/22/18 Isosorbide Mononitrate [Imdur] 30 mg PO DAILY #30 tab 02/22/18 Pantoprazole Sodium [Protonix] 40 mg PO DAILY #30 tab 02/22/18 Following Prescrptions Were Given to Patient: Atorvastatin Calcium [Lipitor] 80 mg PO QHS #90 tab Clopidogrel Bisulfate [Plavix] 75 mg PO DAILY #90 tab Furosemide [Lasix] 40 mg PO DAILY #30 tab Isosorbide Mononitrate [Imdur] 30 mg PO DAILY #30 tab Pantoprazole Sodium [Protonix] 40 mg PO DAILY #30 tab Carvedilol [Coreg (Beta Kevin)] 3.125 mg PO BID #90 tab Ferrous Sulfate 325 mg PO BIDCM #90 tab Primary Care Physician: [facility],[place] [Primary Care Provider] - Please follow up with your Primary Care Physician in: 1 week. Please Follow Up With: Lobo Ivan MD When: 1-2 weeks. Disposition: Home Minutes spent on discharge:: 40 Patient Condition:: Stable Medical Necessity - Tobacco Use Smoking Status: Never smoker Tobacco Use: Non-smoker Meaningful Use Info Meaningful Use Diagnoses (Choose all that apply): AMI, CHF - AMI Aspirin given w/in 24hrs of arrival?: Yes ASA at discharge?: Yes Statins at discharge?: Yes Ruperto/ARB at discharge?: Yes Beta Kevin at discharge?: Yes Done w/ Acute [facility] measure.: Yes - CHF RUPERTO/ARB ordered at discharge?: Yes Documented LVEF (%): 50 Code Visit Inpatient E&M: 07297 Disch Hosp
--- NOTE | 2018-02-22 17:13 | CPS ---
Patient working on PEP therapy on own.
--- NOTE | 2018-02-22 17:34 | NURSING ---
Discharge teaching completed. Patient voiced understanding of same. Denies questions when asked.
[2018-02-23 16:08] LABS: Folate, RBC (Hct) Test 27.7 % (34.0-46.6)
[2018-02-24 13:40] LABS: Folates, RBC Test 1274 ng/mL (>498)
--- NOTE | 2018-02-24 16:09 | CASEMGMT ---
RN LAVON Discharge F/U Phone Call LACE: 12 Strata: 4 Discharge date: 02/22/18 Call date: 02/24/18 Call time: 1610 Duration: 5 minutes Admission dx: COPD Pt states 'I am doing as good as I can do.' Pt states no questions regarding discharge instructions or medications at this time. Pt states has [facility], Dr. Ivan 03/[address] Mason in March some time. Pt states plans on keeping all those appt's. Pt states that 'Everyone there was so nice and I felt like a celebrity, they treated me so good.' Pt states no suggestions for [facility] at this time. Pt voices no further questions/concerns/needs at this time. Pt aware she can call this RN CM if anything arises. SStaten AAKASH DOLL
== END 2018-02-22 17:45 | disposition home or self-care (01) | DRG 246 ==
LOC: ED 13:49 → PCU 16:48 → ICU 02-18 11:09 → PCU 02-19 11:41
PROVIDERS: Surgery; Admitting Provider Family Medicine; Emergency Provider Emergency Medicine; Visit Provider Hospitalist
PROC: 0DJD8ZZ Inspection of Lower Intestinal Tract, Via Natural or Artificial Opening Endoscopic (ICD-10-PCS; CPT 45378; principal; 2018-02-21 07:45)
DX: I21.4 Non-ST elevation (NSTEMI) myocardial infarction (principal); J96.21 Acute and chronic respiratory failure with hypoxia; I50.41 Acute combined systolic (congestive) and diastolic (congestive) heart failure; J44.1 Chronic obstructive pulmonary disease with (acute) exacerbation; N17.9 Acute kidney failure, unspecified; I27.20 Pulmonary hypertension, unspecified; F32.9 Major depressive disorder, single episode, unspecified; E78.5 Hyperlipidemia, unspecified; G47.33 Obstructive sleep apnea (adult) (pediatric); D50.9 Iron deficiency anemia, unspecified; E11.65 Type 2 diabetes mellitus with hyperglycemia; Z77.22 Contact with and (suspected) exposure to environmental tobacco smoke (acute) (chronic); D12.0 Benign neoplasm of cecum; I25.10 Atherosclerotic heart disease of native coronary artery without angina pectoris; Z79.4 Long term (current) use of insulin; I11.0 Hypertensive heart disease with heart failure; E66.9 Obesity, unspecified; Z68.37 Body mass index [BMI] 37.0-37.9, adult; M19.90 Unspecified osteoarthritis, unspecified site
CPT/HCPCS: 36415; 71045; 74176; 80048; 80061; 82274; 82607; 82728; 82747; 82962; 83036; 83540; 83550; 83880; 84484; 85014; 85018; 85025; 85347; 85610; 85730; 86850; 86900; 86920; 86922; 88305; 92928; 92929; 93005; 93306; 93458; 94002; 94003; 94640; 94667; 94668; 97116; 97162; 97166; 97530; 97535; 99285; C1760; J7030; J7040; P9016; Q9967; A4216; C1725; C1769; C1874; C1887; C1894; C9600; C9601; J1940

== ENCOUNTER 2018-03-17 10:14 | Day surgery (SDC) | payer MEDICARE, OTHER, SELFPAY ==
[2018-02-18 14:17] VITALS: BMI 36.7
[2018-03-16 13:25] VITALS: BMI 37.8
[2018-03-17] VITALS (40 sets, daily range): BP systolic 82–190; BP diastolic 27–107; PULSE 42–81; RESP 14–23; TEMP 36.7–36.9; O2SAT 91–100; BMI 37.1
--- NOTE | 2018-03-17 14:28 | CL.I_ITS ---
Patient Name: BINA GOLDSTEIN I Study Date: 03/17/2018 Performing: Ht: 55.11 inches 140 cm : 1950 Wt: 163.14 lbs 74 kg Age: 67 Gender: female BSA: 1.61 PROCEDURE(S) PERFORMED CLINICAL PROFILE AND CO-MORBIDITIES Heart Failure: NYHA Class: 1, Newly Diagnosed: Yes, Heart Failure Type: Systolic Stress/Imaging Stress/Image Study Performed: No Angina Classification Anginal Classification w/in 2 Weeks: CCS III CAD Presentations: Unstable angina. Comorbidities/Risk Factors: Hypertension Dyslipidemia Prior PCI Chronic Lung Disease CONCLUSIONS Successful PTCA/OLGA mid LCX with a 2.25 x 38 Promus Synergy stent, post dilated with a 2.25 x 12 NC b alloon; 85%-->0%, no dissection. Successful PTCA/OLGA proximal OM#1 with a 2.25 x 20 Promus Synergy, post dilated with a 2.25 x 12 NC b alloon; 85%-->0%, no dissection. Pt had similar CP as she had at home with stent and balloon inflati ons. 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 Moncho peres/neli for life. Manual sheath removal. DESCRIPTION OF PROCEDURE The patient arrived to the procedure lab. The risks and benefits of the procedure as well as a full d escription of our services here and current unavailability of surgical backup were fully explained to the patient and/or their significant other prior to the catheterization. The Timeout was completed, verifying the correct patient and procedure. The patient's procedural site was prepped and draped in the usual fashion. Local anesthetic was given subcutaneously to right groin region with Lidocaine 2% Using a modified Seldinger technique,arterial access was obtained via the right femoral artery, a 6Fr sheath was inserted. Left Coronary Artery selective angiography was performed in multiple views usin g a 6 Fr. JL3.5 catheter.The images were reviewed and options discussed. A decision was then made to proceed with an Intervention, IVUS or other adjunct procedure. bmw Guide wire was advanced to the Circumflex. bmw Guide wire was advanced to the 1st OM. Angiogram p erformed pre balloon dilatation. ebu 3.5 Guide catheter was inserted and engaged into the LCA. emerge 2.00 x 12 Balloon catheter was advanced across lesion in the circumflex, mid. PTCA balloon inflated at 6 atms for 10 secs. PTCA balloon inflated at 6 atms for 8 secs. PTCA balloon inflated at 6 atms fo r 8 secs. PTCA balloon inflated at 6 atms for 8 secs. PTCA balloon inflated at 9 atms for 17 secs. PT CA balloon inflated at 8 atms for 14 secs. PTCA balloon inflated at 6 atms for 6 secs. PTCA balloon i nflated at 9 atms for 15 secs. PTCA balloon inflated at 6 atms for 6 secs. Angiogram performed post b alloon dilatation. emerge 2.00 x 12 Balloon catheter was advanced across lesion in the first obtuse m arginal, mid. PTCA balloon inflated at 6 atms for 6 secs. PTCA balloon inflated at 8 atms for 14 secs . Angiogram performed post balloon dilatation. synergy 2.25 x 38 Balloon catheter was advanced across lesion in the circumflex, mid. Angiogram performed post stent deployment. nc emerge 2.25 x 12 Balloo n catheter was inserted post stent. Angiogram performed post balloon dilatation. nc emerge 2.25 x 12 Balloon catheter was inserted post stent into the circ Angiogram performed post balloon dilatation. s ynergy 2.25 x 20 Drug Eluting stent was advanced across the lesion in the first obtuse marginal, prox imal. Angiogram performed post stent deployment. nc emerge 2.25 x 20 Balloon catheter was inserted po st stent. Angiogram performed post balloon dilatation. 6 fr 45 cm Arterial sheath was exchanged for a 6 Fr 11 Sheath. INTERVENTION INFORMATION LESION SITE: Circumflex (Mid) Lesion Complexity: High/C, lesion at bifurcation: Yes, thrombus present: No, lesion length: 38 mm, cu lprit lesion: Yes Pre Stenosis: 85 % Pre intervention RONDA flow: 3 PROCEDURE: Drug Eluting Stent with pre and post dilatation Post Stenosis: 0 % Post intervention RONDA flow: 3 Lesion Devices: Jeff .014 BMW Mallory Straight 190cm Medtronic 6 Fr EBU3.75 100cm Guide Catheter Dontrell Sci EMERGE MR 2.00x12 BALLOON Dontrell Sci Synergy MR OLGA 2.25x38 Dontrell Sci NC EMERGE MR 2.25x12 BALLOON LESION SITE: 1st OM (Proximal) Lesion Complexity: High/C, lesion at bifurcation: Yes, thrombus present: No, lesion length: 20 mm, cu lprit lesion: No Pre Stenosis: 85 % Pre intervention RONDA flow: 3 PROCEDURE: Drug Eluting Stent with pre and post dilatation Post Stenosis: 0 % Post intervention RONDA flow: 3 Lesion Devices: Jeff .014 BMW Mallory Straight 190cm Dontrell Sci EMERGE MR 2.00x12 BALLOON Dontrell Sci Synergy MR OLGA 2.25x20 COMPLICATIONS No Complications PROCEDURE MEDICATIONS Oxygen: 2 L/min via nasal cannula Heparin 6000 unit(s) IV 03/17/2018 13:34:39 Nitro 200 mcg IC 03/17/2018 13:36:48 Nitro 200 mcg IC 03/17/2018 13:36:48 Nitro Paste 1 in 03/17/2018 14:21:24 SUMMARY OF HEMODYNAMIC DATA Time AIR REST ECG 10:50:53 AO 185/71 (117) SA 13:35:34
[2018-03-17 14:51] LABS: ACT Activated Clotting Time 180 sec (74-137)
--- NOTE | 2018-03-17 15:33 | EKG12_ITS ---
Test Reason : POST PCI Blood Pressure : / mmHG Vent. Rate : 068 BPM Atrial Rate : 068 BPM P-R Int : 146 ms QRS Dur : 132 ms QT Int : 442 ms P-R-T Axes : 052 -69 049 degrees QTc Int : 469 ms Normal sinus rhythm Right bundle branch block Left anterior fascicular block Bifascicular block Abnormal ECG Confirmed by Zunilda Dueñas ([id number]), video effects editor MOON WHELAN ([id number]) on 03/22/2018 3:36:35 PM Referred By: Lobo Ivan Confirmed By:Zunilda Dueñas
[2018-03-17] MEDS: 0.9% Normal Saline 1,000 ML 150 ML IV (15:45)
--- NOTE | 2018-03-17 15:47 | CRPHASE1 ---
Patient Data/Charges Former Patient:: Phase I Reason Not Completed:: patient was seen 02/01/18 on a previous interventions and we already have a referral. Risk Factors/Lifestyle Family History: Family History (Last Reviewed 03/09/18 @ 13:34 by Mary Stevenson, PONY RIDE ATTENDANT-C) Mother Hypertension Heart disease Hyperlipidemia Father Myocardial infarction Heart disease Emphysema lung Grandmother Diabetes Grandfather Epilepsia Alcoholism
[2018-03-17] MEDS: Carvedilol 6.25 MG Tablet PO (17:30)
[2018-03-17] MEDS: Ferrous Sulfate 325 MG Tablet PO (17:31)
--- NOTE | 2018-03-17 17:57 | NURSING ---
1705-pt placed on bedpan. site benign before & after being placed on bedpan. 170-pt taken off of bedpan, sm hematoma noted. Pressure held. 174- Pressure released, hematoma resolved. Dr Ivan notified. 1744- Fem Stop placed. 175- Nitro GTT started. BP 162/66.
[2018-03-17] MEDS: Albuterol 2.5 MG/3 ML VIAL.NEB. INHALATION (19:32)
[2018-03-17] MEDS: Budesonide Respules 0.5 MG/2 ML AMPUL.NEB. INHALATION (19:32)
--- NOTE | 2018-03-17 20:45 | NURSING ---
Pt states back pain, which is chronic, knee and ankle pain, which is chronic. Denies worsening back pain or abdominal pain. Applied 2L NC due to pulse ox to 86% when pt relaxes and closes eyes. Home CPAP machine is set up at bedside. Pt is in supine position and understands need for maintaining supine position.
[2018-03-17 22:11] LABS: Bedside Glucose 250 mg/dL (70-110)
[2018-03-17] MEDS: Atorvastatin Calcium 80 MG Tablet PO (22:24)
[2018-03-17] MEDS: Insulin Lispro 100 UNIT/ML INSULN.PEN 18 UNIT SC (22:24)
[2018-03-18] VITALS (21 sets, daily range): BP systolic 97–152; BP diastolic 30–61; PULSE 55–79; RESP 13–23; TEMP 36.2–37.1; O2SAT 92–100
[2018-03-18] MEDS: 0.9% NaCl Peripheral Flush Adult/Peds IV (04:52)
[2018-03-18 04:59] LABS: Hematocrit 26.8 % (37-47); Hemoglobin 8.6 g/dl (12.0-15.0); Mean Corp Hgb Conc 32.1 g/gl (32-36); Mean Corpuscular Hgb 30.3 pg (27.0-32.0); Mean Corpuscular Volume 94.4 fL (81-99); Mean Platelet Vol. 9.1 fl (6.2-12.0); Platelet Count 277 K/mm3 (150-450); RBC Distribution Width CV 13.9 % (11.6-14.6); RBC Distribution Width SD 46.3 fl (35.1-43.9); Red Blood Count 2.84 M/mm3 (4.2-5.4); White Blood Count 9.1 K/mm3 (4.4-11.0)
[2018-03-18 05:24] LABS: Anion Gap 12 (5-15); BUN 31 mg/dL (7-18); BUN/Creat Ratio 20.4 RATIO (10-20); Calcium,Total 8.6 mg/dL (8.5-10.1); Chloride 103 mmol/L (98-107); Creatinine, Serum 1.52 mg/dL (0.55-1.02); EST Glomerular Filtration Rate 36 mL/min (>60); Est Glom Filt Rate - Afr Amer 44 mL/min (>60); Estimated Creatinine Clearance 41.39 ml/min; Glucose 137 mg/dL (74-106); Potassium 4.1 mmol/L (3.5-5.1); Sodium Level 143 mmol/L (136-145)
[2018-03-18 05:26] LABS: Scan Indicated on CBC? Y/N NO
[2018-03-18] MEDS: Budesonide Respules 0.5 MG/2 ML AMPUL.NEB. INHALATION (06:57)
[2018-03-18] MEDS: Albuterol 2.5 MG/3 ML VIAL.NEB. INHALATION ×2 (06:57→11:29)
--- NOTE | 2018-03-18 07:34 | PCM.DC.CCA ---
Discharge Diet: Low fat/ Low Cholesterol Discharge Activity: Return to Normal Activity May shower in (days): 1 May resume sexual activity in: 1-2 weeks Lifting Restrictions: Do not lift anything greater than 10 pounds for 3 days Call your doctor if your incision/area has: Continuous Slow Oozing, Sudden Increased Bleeding, Increased Pain/ Swelling, Increased Redness, Foul Smelling Discharge, Swelling at the incision site Call your doctor if you observe: Fever of 101 or Higher, Shortness of breath, Chest pain Remove Dressing in (days):: 1 Additional Instructions: You will continue with Plavix for at least one year. You'll remain on Aspirin for life. If anyone asks you to stop or hold your Plavix medication, please call the [facility] first at [phone]. Your Coreg medication has been increase to 6.25mg twice a day. Your appointment/follow-up is scheduled with Dr. Ivan on 04/01/2018 at 11:30 AM. Please continue to monitor your right groin. If you notice and new bruising, bleeding, or numbness, please call the [facility] at [phone]. Allergies/Adverse Reactions: Allergies meperidine HCl [From Demerol] Allergy (Verified 03/09/18 12:04) Other Penicillins Allergy (Verified 03/09/18 12:04) Rash Medications to take at Discharge Acetaminophen [Tylenol Tablet] 650 mg PO Q4H PRN PRN #0 tab 01/13/15 Budesonide/Formoterol 160/4.5 [Symbicort 160/4.5 Mcg Inhaler (SP)] 2 puff INHALATION BID inhaler 01/13/15 Ipratropium [place] 0.06% [ATROVENT NASAL SPRAY] 2 spray NASAL TID PRN #0 nasal.sry 01/13/15 Losartan Potassium [Cozaar] 25 mg PO DAILY tab 01/13/15 Nitroglycerin [Nitrostat] 0.4 mg SUBLINGUAL Q5M PRN #100 tab 01/13/15 Albuterol Aerosols [Ventolin Aerosols] 2.5 mg INHALATION Q4HWA.RT 02/17/18 Aspirin E.C. [Ecotrin] 81 mg PO DAILY@0800 02/17/18 Insulin Regular, Human [Novolin R] 18 units SQ BID 02/17/18 Atorvastatin Calcium [Lipitor] 80 mg PO QHS #90 tab 02/22/18 Clopidogrel Bisulfate [Plavix] 75 mg PO DAILY #90 tab 02/22/18 Ferrous Sulfate 325 mg PO BIDCM #90 tab 02/22/18 Furosemide [Lasix] 40 mg PO DAILY #30 tab 02/22/18 Isosorbide Mononitrate [Imdur] 30 mg PO DAILY #30 tab 02/22/18 Pantoprazole Sodium [Protonix] 40 mg PO DAILY #30 tab 02/22/18 carvedilol 6.25 mg tablet 6.25 mg PO BID #90 tab 03/18/18 Primary Care Physician: [facility],[place] [Primary Care Provider] - Test Results: Test results from this visit will be discussed in further detail at your follow-up appointment, if applicable. Please Follow Up With: Dr. Ivan When: 04/01/2018 @ 11:30 AM Proposed Discharge Date: 03/18/18 Cardiac Rehabilitation Info Cardiac Rehabilitation Program Information: Cardiac Rehabilitation is important for patients like you who are recovering from a heart problem. Cardiac rehabilitation programs are recognized as integral to the continued care of the patient with coronary heart disease. The cardiac rehabilitation program is designed to optimize a patient's physical, psychological, and social functioning. Health home health care social worker work in cardiac rehabilitation programs and assist you with getting the treatments you need to get stronger and healthier - like exercise, healthy eating habits, and medications. Cardiac rehabilitation has been show to help people with heart problems live longer and have better life enjoyment than people who do not go to cardiac rehabilitation. Please contact the Cardiac Rehabilitation Program at [facility] at in two weeks if you have not heard from them.
--- NOTE | 2018-03-18 07:41 | DCINST_ITS ---
Discharge Diet: Low fat/ Low Cholesterol Discharge Activity: Return to Normal Activity May shower in (days): 1 May resume sexual activity in: 1-2 weeks Lifting Restrictions: Do not lift anything greater than 10 pounds for 3 days Call your doctor if your incision/area has: Continuous Slow Oozing, Sudden Increased Bleeding, Increased Pain/ Swelling, Increased Redness, Foul Smelling Discharge, Swelling at the incision site Call your doctor if you observe: Fever of 101 or Higher, Shortness of breath, Chest pain Remove Dressing in (days):: 1 Additional Instructions: You will continue with Plavix for at least one year. You'll remain on Aspirin for life. If anyone asks you to stop or hold your Plavix medication, please call the [facility] first at [phone]. Your Coreg medication has been increase to 6.25mg twice a day. Your appointment/follow-up is scheduled with Dr. Ivan on 04/01/2018 at 11:30 AM. Please continue to monitor your right groin. If you notice and new bruising, bleeding, or numbness, please call the [facility] at [phone]. Allergies/Adverse Reactions: Allergies meperidine HCl [From Demerol] Allergy (Verified 03/09/18 12:04) Other Penicillins Allergy (Verified 03/09/18 12:04) Rash Medications to take at Discharge Acetaminophen [Tylenol Tablet] 650 mg PO Q4H PRN PRN #0 tab 01/13/15 Budesonide/Formoterol 160/4.5 [Symbicort 160/4.5 Mcg Inhaler (SP)] 2 puff INHALATION BID inhaler 01/13/15 Ipratropium [place] 0.06% [ATROVENT NASAL SPRAY] 2 spray NASAL TID PRN #0 nasal.sry 01/13/15 Losartan Potassium [Cozaar] 25 mg PO DAILY tab 01/13/15 Nitroglycerin [Nitrostat] 0.4 mg SUBLINGUAL Q5M PRN #100 tab 01/13/15 Albuterol Aerosols [Ventolin Aerosols] 2.5 mg INHALATION Q4HWA.RT 02/17/18 Aspirin E.C. [Ecotrin] 81 mg PO DAILY@0800 02/17/18 Insulin Regular, Human [Novolin R] 18 units SQ BID 02/17/18 Atorvastatin Calcium [Lipitor] 80 mg PO QHS #90 tab 02/22/18 Clopidogrel Bisulfate [Plavix] 75 mg PO DAILY #90 tab 02/22/18 Ferrous Sulfate 325 mg PO BIDCM #90 tab 02/22/18 Furosemide [Lasix] 40 mg PO DAILY #30 tab 02/22/18 Isosorbide Mononitrate [Imdur] 30 mg PO DAILY #30 tab 02/22/18 Pantoprazole Sodium [Protonix] 40 mg PO DAILY #30 tab 02/22/18 carvedilol 6.25 mg tablet 6.25 mg PO BID #90 tab 03/18/18 Primary Care Physician: [facility] [Primary Care Provider] - Test Results: Test results from this visit will be discussed in further detail at your follow- up appointment, if applicable. Please Follow Up With: Dr. Ivan When: 04/01/2018 @ 11:30 AM Proposed Discharge Date: 03/18/18 Cardiac Rehabilitation Info Cardiac Rehabilitation Program Information: Cardiac Rehabilitation is important for patients like you who are recovering from a heart problem. Cardiac rehabilitation programs are recognized as integral to the continued care of the patient with coronary heart disease. The cardiac rehabilitation program is designed to optimize a patient's physical, psychological, and social functioning. Health point of care technician work in cardiac rehabilitation programs and assist you with getting the treatments you need to get stronger and healthier - like exercise, healthy eating habits, and medications. Cardiac rehabilitation has been show to help people with heart problems live longer and have better life enjoyment than people who do not go to cardiac rehabilitation. Please contact the Cardiac Rehabilitation Program at [facility] at in two weeks if you have not heard from them.
[2018-03-18] MEDS: Carvedilol 6.25 MG Tablet PO (08:27)
[2018-03-18] MEDS: Aspirin E.C. 81 MG Tablet PO (08:27)
[2018-03-18] MEDS: Ferrous Sulfate 325 MG Tablet PO (08:27)
[2018-03-18] MEDS: Isosorbide Mononitrate 30 MG Tablet PO (08:28)
[2018-03-18] MEDS: Furosemide 40 MG Tablet PO (08:28)
[2018-03-18] MEDS: Losartan Potassium 25 MG Tablet PO (08:28)
[2018-03-18] MEDS: Clopidogrel Bisulfate 75 MG Tablet PO (08:29)
[2018-03-18] MEDS: Pantoprazole Sodium 40 MG Tablet PO (08:29)
[2018-03-18] MEDS: Insulin Lispro 100 UNIT/ML INSULN.PEN 18 UNIT SC (10:28)
[2018-03-18 10:41] LABS: Bedside Glucose 319 mg/dL (70-110)
--- NOTE | 2018-03-18 11:14 | PCM.PN.CARD ---
Subjectve: Patient doing very well this morning. Had a small amount of hematoma last evening which was corrected with direct manual pressure followed by FemoStop for 4 hours. Mild ecchymosis in the right groin. Hemoglobin and creatinine are within nominal limits. Telemetry shows normal sinus rhythm with rare PVCs. EKG shows normal sinus rhythm with old right bundle branch block and no acute changes. No chest pain overnight. Objective: Vital Signs Temp Pulse Resp BP Pulse Ox 98.3 F 78 21 H 143/53 H 95 03/18/18 10:03/18/18 10:00 03/18/18 10:03/18/18 10:03/18/18 10:00 Oxygen Flow Rate (L/min) 2 Oxygen Delivery Method Room Air Weight: 160 lb 14.999 oz Body Mass Index (BMI) 37.1 Intake and Output for Last 24 Hours 03/16/18 03/17/18 03/18/18 23:59 23:59 23:59 Intake Total 1496 / 1496 180 / 180 Output Total 635 / 635 150 / 150 Balance 861 / 861 General: Awake, Alert, Oriented x 3 HEENT: PERRL, EOMI, Sclera Non Icteric Neck: Supple, Good ROM, No Lymph Node Enlargement Lungs: Clear to auscultation Cardiovascular: Regular Rhythm, Normal S1, Normal S2, No Murmurs, No Rubs, No Gallops Vascular: No Carotid Bruits, Normal Femoral Pulses, Normal Radial Pulses, Normal Dorsalis Pedal Pulse, Normal Posterior Tibial Pulses Abdomen: Bowel Sounds Present, Soft, Non Tender, No HSM, No Organomegaly Extremities: No Cyanosis, No Clubbing, No edema Neurological: No Focal Motor or Sensory Deficit 03/18/18 04:50: WBC 9.1, RBC 2.84 L, Hgb 8.6 L, Hct 26.8 L, MCV 94.4, MCH 30.3, MCHC 32.1, RDW 13.9, RDW Differential 46.3 H, Plt Count 277, MPV 9.1 03/18/18 04:50: Sodium 143, Potassium 4.1, Chloride 103, Carbon Dioxide 28.0, Anion Gap 12, BUN 31 H, Creatinine 1.52 H, Est GFR (MDRD) Af Amer 44 L, Est GFR (MDRD) Non-Af 36 L, BUN/Creatinine Ratio 20.4 H, Glucose 137 H, Calcium 8.6 Rhythm: EKG: ECHO: Stress Test: Cardiac Cath: PCI: CT Surgery: Holter monitor: EPS: PPM: CXR: Chest CT Scan: Medical Necessity - Tobacco Use Smoking Status: Never smoker Assessment/Plan 1. Coronary artery disease: Patient is status post angioplasty and stenting to her mid left circumflex and obtuse marginal #1, with an excellent result. Right groin is clean/dry/intact. Patient is status post angioplasty and stenting to her RCA several weeks ago. Telemetry and EKG within nominal limits. Hemoglobin and creatinine within nominal limits. Patient will continue her baby aspirin, Plavix, we will increase her Coreg to 6.25 mill grams p.o. twice daily, continue losartan and Imdur. She will report to our office per protocol for a groin check. She will follow-up with Dr. Ivan going forward. 2. Hyperlipidemia: Continue statin based medications. 3. Patient may be discharged home. Code Visit Inpatient E&M: 08709 Subs Hosp L2
--- NOTE | 2018-03-18 15:33 | EKG12_ITS ---
Test Reason : AM EKG Blood Pressure : / mmHG Vent. Rate : 076 BPM Atrial Rate : 076 BPM P-R Int : 116 ms QRS Dur : 114 ms QT Int : 426 ms P-R-T Axes : 037 -77 066 degrees QTc Int : 479 ms Normal sinus rhythm Right bundle branch block Left anterior fascicular block Bifascicular block Abnormal ECG Confirmed by Zunilda Dueñas ([id number]), metropolitan editor MOON WHELAN ([id number]) on 03/22/2018 3:35:58 PM Referred By: Lobo Ivan Confirmed By:Zunilda Dueñas
== END 2018-03-18 13:15 | disposition home or self-care (01) ==
LOC: CLSP 10:16 → ICU 13:50
PROVIDERS: Visit Provider Internal Medicine Cardiovascular Disease
DX: I25.10 Atherosclerotic heart disease of native coronary artery without angina pectoris (principal); E78.5 Hyperlipidemia, unspecified; I10 Essential (primary) hypertension; J44.9 Chronic obstructive pulmonary disease, unspecified; G47.33 Obstructive sleep apnea (adult) (pediatric); E11.9 Type 2 diabetes mellitus without complications; E66.01 Morbid (severe) obesity due to excess calories; Z95.5 Presence of coronary angioplasty implant and graft; F32.9 Major depressive disorder, single episode, unspecified; J96.11 Chronic respiratory failure with hypoxia; J30.2 Other seasonal allergic rhinitis; Z68.39 Body mass index [BMI] 39.0-39.9, adult; I45.10 Unspecified right bundle-branch block
CPT/HCPCS: 80048; 82962; 85027; 85347; 92928; 92929; 93005; 94640; J0153; J7030; Q9967; A4216; C1725; C1769; C1874; C1887; C1894; C9600; C9601

== ENCOUNTER → 2018-03-31 13:15 | Outpatient (CLI) | payer MEDICARE, OTHER, SELFPAY ==
[2018-02-18 14:17] VITALS: BMI 36.7
--- NOTE | 2018-03-31 13:23 | PCM.CR.HP2 ---
CR - History & Physical - General Arrival date:: 03/31/18 Arrival time:: 13:24 Date of Referral:: 02/17/18 Date of CR Evaluation:: 03/31/18 Referring Physician: Dr. Lobo Ivan Primary Diagnosis: Z95.5 cornary artery stenting 02/17/2018 - History of Present Cardiac Event Onset Date: Enter Onset Date of cardiac illnesses in Comment field below PTCA or coronary stenting:: Yes - Medications Home Medications: Ambulatory Orders Medication Instructions Recorded Acetaminophen [Tylenol Tablet] 650 mg PO Q4H PRN PRN #0 tab 01/13/15 Budesonide/Formoterol 160/4.5 2 puff INHALATION BID inhaler 01/13/15 [Symbicort 160/4.5 Mcg Inhaler (SP)] Ipratropium [place] 0.06% 2 spray NASAL TID PRN #0 nasal.sry 01/13/15 [ATROVENT NASAL SPRAY] Losartan Potassium [Cozaar] 25 mg PO DAILY tab 01/13/15 Nitroglycerin [Nitrostat] 0.4 mg SUBLINGUAL Q5M PRN #100 tab 01/13/15 Albuterol Aerosols [Ventolin 2.5 mg INHALATION Q4HWA.RT 02/17/18 Aerosols] Aspirin E.C. [Ecotrin] 81 mg PO DAILY@0800 02/17/18 Insulin Regular, Human [Novolin R] 18 units SQ BID 02/17/18 Atorvastatin Calcium [Lipitor] 80 mg PO QHS #90 tab 02/22/18 Clopidogrel Bisulfate [Plavix] 75 mg PO DAILY #90 tab 02/22/18 Ferrous Sulfate 325 mg PO BIDCM #90 tab 02/22/18 Furosemide [Lasix] 40 mg PO DAILY #30 tab 02/22/18 Isosorbide Mononitrate [Imdur] 30 mg PO DAILY #30 tab 02/22/18 Pantoprazole Sodium [Protonix] 40 mg PO DAILY #30 tab 02/22/18 carvedilol 6.25 mg tablet 6.25 mg PO BID #90 tab 03/18/18 - Allergies Allergies/Adverse Reactions: Allergies meperidine HCl [From Demerol] Allergy (Verified 03/29/18 08:58) Other Penicillins Allergy (Verified 03/29/18 08:58) Rash - Sleep Disorder Evaluation Hx of Sleep Apnea: Yes Do you snore loudly (louder than talking or can be heard through closed doors)?: Yes Do you often feel tired/ fatigued/ sleepy during daytime?: Yes Has anyone observed you stop breathing during sleep?: Yes History of Hypertension (for STOP score): Yes STOP Results: Positive Advanced Directives - Advanced Directives Power of Closet Builder: No Living Will: No Advance Directives Information Provided: No Advance Directives on File: No DNR Order?:: No Past Medical History - Past Medical Illness Medical History: Past Medical History (Last Reviewed 03/29/18 @ 09:18 by Evita Wilson) Atherosclerotic heart disease of [place] coronary artery with other forms of angina pectoris (Acute) Onset Date: 02/18/18 I25.118 OLGA to mid PDA with 2.25X32 Promus Synergy;OLGA to distal RCA 2.5X12 Promus Synergy; OLGA to proximal RCA with 3.0 X 32 Promus Synergy 02/18/2018. OLGA to mid LCX (Promus Synergy 2.25 X38) and OLGA to proximal OM 1(2.25 X 12) on 03/17/18. Staged procedure by JENNIE @ [facility] Pulmonary hypertension (Acute) I27.20 Non-STEMI (non-ST elevated myocardial infarction) (Acute) Onset Date: 02/17/18 I21.4 CHF (congestive heart failure) (Acute) I50.9 [place] (obstructive sleep apnea) (Chronic) G47.33 Hyperlipidemia (Chronic) E78.5 Seasonal allergies (Chronic) J30.2 Depressive disorder (Chronic) F32.9 Arthritis (Chronic) M19.90 Asthma (Chronic) J45.909 Chronic respiratory failure (Chronic) J96.10 COPD (chronic obstructive pulmonary disease) (Chronic) J44.9 Type II diabetes mellitus (Chronic) E11.9 - Past Surgical History Surgical History: Past Surgical History (Last Reviewed 03/29/18 @ 09:18 by Evita Wilson) Stented coronary artery (Chronic) Onset Date: 03/17/18 Z95.5 OLGA to mid PDA with 2.25X32 Promus Synergy;OLGA to distal RCA 2.5X12 Promus Synergy; OLGA to proximal RCA with 3.0 X32 Promus Synergy 02/18/18. OLGA to mid LCX (Promus Synergy 2.25 X38) and OLGA to proximal OM 1(2.25 X 12) on 03/17/18. Staged procedure by DJN @ [facility] Surgical History: cholecystectomy, tonsillectomy - Family History Summary Family History: Family History (Last Reviewed 03/29/18 @ 09:18 by Evita Wilson) Mother Hypertension Heart disease Hyperlipidemia Father Myocardial infarction Heart disease Emphysema lung Grandmother Diabetes Grandfather Epilepsia Alcoholism Social History - Smoking History Smoking Status: Never smoker Hx Tobacco Use: No Hx Smoking Exposure: No - Alcohol Use Alcohol Usage: No - Substance Abuse Hx Substance Use: No - Occupation Occupation (List type of work in comments):: Retired - Hobbies, Recreation, Social Activities Recreational Activities: I cannot do any recreational activities at all Social Environment - Status Marital Status: - Current Living Arrangements Living Environment:: Alone - Children How many children do you have?: 1 Do any of your children live nearby?: No - Safety Do you feel safe in your surroundings?: Yes - Assistance Do you need any assistance at home?: none Review of Systems - Review of Systems Hints: Right click = Denies (Slash). Left click = Reports ([place]) Review of Present Symptoms: Reports: Shortness of Breath at Rest, Shortness of Breath with Exertion, Fatigue. Denies: PVD, Operative Discomfort, Angina, Wound Healing, Dizziness/Lightheadedness, Heart Arrhythmia/Irregularities, Appetite - Normal, Appetite - Special Diet, Sleep - Normal, Sexual Changes - Pain Is Patient Pain Free?: Yes Risk Factor Assessment - Chief Complaint Chief Complaint: Z95.5 coronary artery stenting - Vital Signs Pulse Ox: 95 - Pulse Pulse Rate: 60 Pulse Rhythm: Regular - Hypertension Blood Pressure Sitting - Left Arm: 118/50 - Diabetes Diabetic History: Type II - Obesity Height: 1.4 m Weight:: 70.307 kg Weight in Pounds: 155.0 lbs Body Mass Index (BMI): 36.0 Nutritional Referral for Obesity: No - Physical Inactivity Physical Inactivity: None - Risk Stratification Risk Guidelines: Lowest Risk: Risk Factor for Smoking, Moderate Risk: Risk Factor for Hypertension, Highest Risk: Risk Factor for Dyslipidemia, Risk Factor for Diabetes, Risk Factor for Obesity, Risk Factor for Sedentary Lifestyle, Risk Factor for Depression - For Smoking Smoking Risk Guidelines: Smoking Low Risk: None or quit greater than 6 months ago. Smoking Moderate Risk: Smoker or quit 6 months or less ago. Smoking High Risk: Smoker - For Dyslipidemia Dyslipidemia Risk Guidelines: Low Risk: Moderate Risk: High Risk: 15-25% fat 25.1-29% fat >/= 30% fat. <7% sat fat 7-9% sat fat >9% sat fat. <150 mg chol 150-299 mg chol >/= 300 mg chol. LDL <100 LDL 100-129 LDL >/= 130. Chol/HDL ratio <5.0 Chol/HDL ratio 5.0-6.0 Chol/HDL ratio >6.0. Triglycerides <100 Triglycerides 100-149 Triglycerides >/= 150 - For Diabetes Mellitus Diabetes Risk Guidelines: Diabetes Low Risk: HgA1c <6.5% and/or FBG <120. Diabetes Moderate Risk: HgA1c 6.6-7.9% and/or FBG 120-180. Diabetes High Risk: HgA1c >/= 8% and/or FBG >180 - For Obesity/Overweight Obesity/Overweight Risk Guidelines: Obesity Low Risk: BMI <25.0. Obesity Moderate Risk: BMI 25-29.9. Obesity High Risk: BMI >/= 30.0 - For Hypertension Hypertension Risk Guidelines: Hypertension Low Risk: Systolic <120 and Diastolic <80. Hypertension Moderate Risk: Systolic 120-139 and Diastolic 80-89. Hypertension High Risk: Systolic >/= 140 and Diastolic >/= 90 - For Sedentary Lifestyle Sedentary Lifestyle Risk Guidelines: Sedentary Lifestyle Low Risk: >/= 1,500 kcal/week. Sedentary Lifestyle Moderate Risk: 700-1,499 kcal/week. Sedentary Lifestyle High Risk: < 700 kcal/week - For Depression Depression Risk Guidelines: Depression Low Risk: Not clinically depressed. Depression Moderate Risk: Mildly depressed. Depression High Risk: Clinically depressed - Family History Family History: Family History (Last Reviewed 03/29/18 @ 09:18 by Evita Wilson) Mother Hypertension Heart disease Hyperlipidemia Father Myocardial infarction Heart disease Emphysema lung Grandmother Diabetes Grandfather Epilepsia Alcoholism Motivation - Motivation to Participate On a scale of 1 to 10, how prepared are you to commit to attending program?: 10 What do you see as barriers to successfully being able to complete the program?: none What do you see as the benefits of succesfully completing the program? In other words, what do you hope to get out of participating in the program?: more energy Are there issues you are dealing with that will interfere with completing the program?: none Do you have a spouse or signficant other, family or friends who will help support you to complete the program?: none
--- NOTE | 2018-03-31 13:28 | CR.HP_ITS ---
CR - History & Physical - General Arrival date:: 03/31/18 Arrival time:: 13:24 Date of Referral:: 02/17/18 Date of CR Evaluation:: 03/31/18 Referring Physician: Dr. Lobo Ivan Primary Diagnosis: Z95.5 cornary artery stenting 02/17/2018 - History of Present Cardiac Event Onset Date: Enter Onset Date of cardiac illnesses in Comment field below PTCA or coronary stenting:: Yes - Medications Home Medications: Ambulatory Orders Medication Instructions Recorded Acetaminophen [Tylenol Tablet] 650 mg PO Q4H PRN PRN #0 tab 01/13/15 Budesonide/Formoterol 160/4.5 2 puff INHALATION BID inhaler 01/13/15 [Symbicort 160/4.5 Mcg Inhaler (SP)] Ipratropium [place] 0.06% 2 spray NASAL TID PRN #0 nasal.sry 01/13/15 [ATROVENT NASAL SPRAY] Losartan Potassium [Cozaar] 25 mg PO DAILY tab 01/13/15 Nitroglycerin [Nitrostat] 0.4 mg SUBLINGUAL Q5M PRN #100 tab 01/13/15 Albuterol Aerosols [Ventolin 2.5 mg INHALATION Q4HWA.RT 02/17/18 Aerosols] Aspirin E.C. [Ecotrin] 81 mg PO DAILY@0800 02/17/18 Insulin Regular, Human [Novolin R] 18 units SQ BID 02/17/18 Atorvastatin Calcium [Lipitor] 80 mg PO QHS #90 tab 02/22/18 Clopidogrel Bisulfate [Plavix] 75 mg PO DAILY #90 tab 02/22/18 Ferrous Sulfate 325 mg PO BIDCM #90 tab 02/22/18 Furosemide [Lasix] 40 mg PO DAILY #30 tab 02/22/18 Isosorbide Mononitrate [Imdur] 30 mg PO DAILY #30 tab 02/22/18 Pantoprazole Sodium [Protonix] 40 mg PO DAILY #30 tab 02/22/18 carvedilol 6.25 mg tablet 6.25 mg PO BID #90 tab 03/18/18 - Allergies Allergies/Adverse Reactions: Allergies meperidine HCl [From Demerol] Allergy (Verified 03/29/18 08:58) Other Penicillins Allergy (Verified 03/29/18 08:58) Rash - Sleep Disorder Evaluation Hx of Sleep Apnea: Yes Do you snore loudly (louder than talking or can be heard through closed doors)?: Yes Do you often feel tired/ fatigued/ sleepy during daytime?: Yes Has anyone observed you stop breathing during sleep?: Yes History of Hypertension (for STOP score): Yes STOP Results: Positive Advanced Directives - Advanced Directives Power of Residence Manager: No Living Will: No Advance Directives Information Provided: No Advance Directives on File: No DNR Order?:: No Past Medical History - Past Medical Illness Medical History: Past Medical History (Last Reviewed 03/29/18 @ 09:18 by Evita Wilson) Atherosclerotic heart disease of [place] coronary artery with other forms of angina pectoris (Acute) Onset Date: 02/18/18 I25.118 OLGA to mid PDA with 2.25X32 Promus Synergy;OLGA to distal RCA 2.5X12 Promus Synergy; OLGA to proximal RCA with 3.0 X 32 Promus Synergy 02/18/2018. OLGA to mid LCX (Promus Synergy 2.25 X38) and OLGA to proximal OM 1(2.25 X 12) on 03/17/18. Staged procedure by JENNIE @ [facility] Pulmonary hypertension (Acute) I27.20 Non-STEMI (non-ST elevated myocardial infarction) (Acute) Onset Date: 02/17/18 I21.4 CHF (congestive heart failure) (Acute) I50.9 [place] (obstructive sleep apnea) (Chronic) G47.33 Hyperlipidemia (Chronic) E78.5 Seasonal allergies (Chronic) J30.2 Depressive disorder (Chronic) F32.9 Arthritis (Chronic) M19.90 Asthma (Chronic) J45.909 Chronic respiratory failure (Chronic) J96.10 COPD (chronic obstructive pulmonary disease) (Chronic) J44.9 Type II diabetes mellitus (Chronic) E11.9 - Past Surgical History Surgical History: Past Surgical History (Last Reviewed 03/29/18 @ 09:18 by Evita Wilson) Stented coronary artery (Chronic) Onset Date: 03/17/18 Z95.5 OLGA to mid PDA with 2.25X32 Promus Synergy;OLGA to distal RCA 2.5X12 Promus Synergy; OLGA to proximal RCA with 3.0 X32 Promus Synergy 02/18/18. OLGA to mid LCX (Promus Synergy 2.25 X38) and OLGA to proximal OM 1(2.25 X 12) on 03/17/18. Staged procedure by DJN @ [facility] Surgical History: cholecystectomy, tonsillectomy - Family History Summary Family History: Family History (Last Reviewed 03/29/18 @ 09:18 by Evita Wilosn) Mother Hypertension Heart disease Hyperlipidemia Father Myocardial infarction Heart disease Emphysema lung Grandmother Diabetes Grandfather Epilepsia Alcoholism Social History - Smoking History Smoking Status: Never smoker Hx Tobacco Use: No Hx Smoking Exposure: No - Alcohol Use Alcohol Usage: No - Substance Abuse Hx Substance Use: No - Occupation Occupation (List type of work in comments):: Retired - Hobbies, Recreation, Social Activities Recreational Activities: I cannot do any recreational activities at all Social Environment - Status Marital Status: - Current Living Arrangements Living Environment:: Alone - Children How many children do you have?: 1 Do any of your children live nearby?: No - Safety Do you feel safe in your surroundings?: Yes - Assistance Do you need any assistance at home?: none Review of Systems - Review of Systems Hints: Right click = Denies (Slash). Left click = Reports ([place]) Review of Present Symptoms: Reports: Shortness of Breath at Rest, Shortness of Breath with Exertion, Fatigue. Denies: PVD, Operative Discomfort, Angina, Wound Healing, Dizziness/Lightheadedness, Heart Arrhythmia/Irregularities, Appetite - Normal, Appetite - Special Diet, Sleep - Normal, Sexual Changes - Pain Is Patient Pain Free?: Yes Risk Factor Assessment - Chief Complaint Chief Complaint: Z95.5 coronary artery stenting - Vital Signs Pulse Ox: 95 - Pulse Pulse Rate: 60 Pulse Rhythm: Regular - Hypertension Blood Pressure Sitting - Left Arm: 118/50 - Diabetes Diabetic History: Type II - Obesity Height: 1.4 m Weight:: 70.307 kg Weight in Pounds: 155.0 lbs Body Mass Index (BMI): 36.0 Nutritional Referral for Obesity: No - Physical Inactivity Physical Inactivity: None - Risk Stratification Risk Guidelines: Lowest Risk: Risk Factor for Smoking, Moderate Risk: Risk Factor for Hypertension, Highest Risk: Risk Factor for Dyslipidemia, Risk Factor for Diabetes, Risk Factor for Obesity, Risk Factor for Sedentary Lifestyle, Risk Factor for Depression - For Smoking Smoking Risk Guidelines: Smoking Low Risk: None or quit greater than 6 months ago. Smoking Moderate Risk: Smoker or quit 6 months or less ago. Smoking High Risk: Smoker - For Dyslipidemia Dyslipidemia Risk Guidelines: Low Risk: Moderate Risk: High Risk: 15-25% fat 25.1-29% fat >/= 30% fat. <7% sat fat 7-9% sat fat >9% sat fat. <150 mg chol 150-299 mg chol >/= 300 mg chol. LDL <100 LDL 100-129 LDL >/= 130. Chol/HDL ratio <5.0 Chol/HDL ratio 5.0-6.0 Chol/HDL ratio >6.0. Triglycerides <100 Triglycerides 100-149 Triglycerides >/= 150 - For Diabetes Mellitus Diabetes Risk Guidelines: Diabetes Low Risk: HgA1c <6.5% and/or FBG <120. Diabetes Moderate Risk: HgA1c 6.6-7.9% and/or FBG 120-180. Diabetes High Risk: HgA1c >/= 8% and/or FBG >180 - For Obesity/Overweight Obesity/Overweight Risk Guidelines: Obesity Low Risk: BMI <25.0. Obesity Moderate Risk: BMI 25-29.9. Obesity High Risk: BMI >/= 30.0 - For Hypertension Hypertension Risk Guidelines: Hypertension Low Risk: Systolic <120 and Diastolic <80. Hypertension Moderate Risk: Systolic 120-139 and Diastolic 80-89. Hypertension High Risk: Systolic >/= 140 and Diast olic >/= 90 - For Sedentary Lifestyle Sedentary Lifestyle Risk Guidelines: Sedentary Lifestyle Low Risk: >/= 1,500 kcal/week. Sedentary Lifestyle Moderate Risk: 700-1,499 kcal/week. Sedentary Lifestyle High Risk: < 700 kcal/week - For Depression Depression Risk Guidelines: Depression Low Risk: Not clinically depressed. Depression Moderate Risk: Mildly depressed. Depression High Risk: Clinically depressed - Family History Family History: Family History (Last Reviewed 03/29/18 @ 09:18 by Evita Wilson) Mother Hypertension Heart disease Hyperlipidemia Father Myocardial infarction Heart disease Emphysema lung Grandmother Diabetes Grandfather Epilepsia Alcoholism Motivation - Motivation to Participate On a scale of 1 to 10, how prepared are you to commit to attending program?: 10 What do you see as barriers to successfully being able to complete the program?: none What do you see as the benefits of succesfully completing the program? In other words, what do you hope to get out of participating in the program?: more energy Are there issues you are dealing with that will interfere with completing the program?: none Do you have a spouse or signficant other, family or friends who will help support you to complete the program?: none
[2018-03-31 14:00] VITALS: BP 118/50; PULSE 60; O2SAT 95; BMI 36.0
--- NOTE | 2018-03-31 14:05 | CR.ITP_ITS ---
General Information - General Information Admitting Diagnosis: Z95.5 coronary artery stenting - Education/Goals Barriers to Learning: None Cardiac Rehabilitation Goals: 1. Maintain the individual as the primary focus of care. 2. To improve the patient's quality of life. 3. Identification of cardiac risk factors and provide cardiac risk factor management. 4. Enhance the psychosocial status of the patient. 5. Reconditioning enough to allow the patient to resume customary activities. 6. Control symptoms of cardiac disease Scale for measuring improvement of personal goals: Enter appropriate number in Comments. 2 = Unchanged. 3 = Slightly Better. 4 = Moderate Improvement. 5 = Met my Goal Personal Goals: Initial Assessment: Improve management of stress and emotions, Improve energy level, Participate in home exercise program, Get back to work, or to resume activities faster, Improve knowledge of cardiac disease, Improve muscle strength and endurance, Improve diet and eating habits (eat healthier), Control risk factors (learn risk factor modification) Exercise - Initial Assessment - [facility]: [facility] - Stages of Change Stages of Change:: Contemplate - Exercise Prescription Mode:: Biodyne, Airdyne, NuStep, Arm Ergometer Angina with exercise?: No Target Heart Rate:: 100-107 - Hypertension Do any of the following apply?: Yes Resting Blood Pressure:: 118/50 - Intervention Home Exercise/Activity Goal:: Sitting Time <3 hrs/day - Education Goals:: Warm-up, RPE JENNIFER Scale, S/S, Safe Exercise, Self-Monitoring - Exercise Program Goals Exercise Program Goals: Aerobic Activity >30 min, B/P <130/80 Nutrition - Initial Assessment - Program Goals Nutrition Program Goals: LDL <70. Total Cholesterol <200. HDL >45. Triglycer ides <150. HgbA1C <7%. BMI <25 - Visit Date of Assessment:: 03/31/18 - Stages of Change Stages of Change:: Contemplate - Diabetes Diabetes:: Yes - Weight Management Weight:: 70.307 kg Total Score:: 5 - Intervention Referral to dietitian:: No Referral to Diabetic Clinic:: No Will attend diet classes:: Yes - Education Gave educational materials for:: Signs & symptoms of hypoglycemia, Signs & symptoms of hyperglycemia, Relate diabetes to coronary artery disease, Healthy eating Tobacco - Initial Assessment - Program Goals Tobacco Program Goals: Complete smoking cessation. Attend education classes. Improve Knowledge Test score - Stage of Change Stages of Change:: Action - Learning Barriers Total Score:: 14 - Family Support Do you have family support?: Yes - Tobacco Use Tobacco Use: Non-smoker Do you use smokeless tobacco?: No - Intervention Smoking Cessation Referral:: No Individual Education/Counseling:: No Education Schedule Given:: Yes - Education Gave educational material for:: Tobacco triggers, Coronary artery disease, Risk factors, Sexuality, Medical compliance, Cardiac A&P, Angina signs & symptoms Psychosocial - Initial Assess - Target Goals Target Goals: Assess presence or absence of depression. Using a valid screening tool, maximizes coping skills. Positive support system - Stages of Change Stages of Change:: Contemplate - Psychosocial Test Tool Used:: HANDS Depression Questionnaire Total Mood Screening Score:: 12 Self-Efficacy Score:: 5 - Intervention PS - Interventions: Yes Attend Stress Management Classes, Yes Uses Stress Management Skills, No Referral to Mental Health, No Referral to [facility] Case Management, No Referral to Physician - Education Gave educational materials for:: Coping techniques, Signs & symptoms of depression, Stress management, Relaxation techniques - Assistive Devices Assistive Devices:: Walker Fall Risk Assessed:: Yes - no treadmill Patient Health Questionnaire Initial Assessment 1. Little interest or pleasure in doing things: Several days 2. Feeling down, depressed, or hopeless: Several days 3. Trouble falling or staying asleep, or sleeping too much: Nearly every day 4. Feeling tired or having little energy: Several days 5. Poor appetite or overeating: Several days 6. Feeling bad about yourself -- or that you are a failure or have let yourself or your family down: Several days 7. Trouble concentrating on things, such as reading the newspaper or watching television: More than half the days 8. Moving or speaking so slowly that other people could have noticed. Or the opposite - being so fidgety or restless that you have been moving around a lot more than usual: Several days 9. Thoughts that you would be better off , or of hurting yourself in some way: Several days How difficult have these problems made it for you to do your work, take care of things at home, or get along with other people?: Somewhat difficult - Pt has appointment with mental health professional Total Score: 12 ROHIT-Q SV Test - Statements CAD is a disease of the arteries in the heart: False Examples of risk factors for heart disease: True Angina is chest pain or discomfort: True The benefits of resistance training include: True Eating more meat and dairy products: False Anti-platelet medications such as aspirin are important: True The only effective way to manage stress: False An exercise warm-up slowly increases heart rate: True Prepared, processed foods usually have high sodium: True Depression is common after a heart attack: True The statin medications lower cholesterol: True To control blood pressure, lower the amount of sodium: True If someone gets chest discomfort during walking: False Transfats are partially hydrogenated vegetable oils: True Sleep apnea that is not treated increases the risk: I Don't Know To control cholesterol, one should become a vegetarian: I Don't Know Someone knows if he/she is exercising at the right level: I Don't Know Diabetes cannot be prevented with exercise & health eating: I Don't Know Stress is a large risk for heart attack: I Don't Know A diet that can help lower blood pressure is rich in: I Don't Know - Total Score Total Correct Responses: 14 Self-Efficacy Initial Assessment We would like to know how confident you are in doing certain activities. Please select your confidence level for:: Select your confidence level for the following using the scale 1-10 where 1 is not at all confident and 10 is totally confident. Your score is the average of all 6 responses. Fatigue: How confident are you that you can keep the fatigue caused by your disease from interfering with the things you want to do? Select Number: 5 Physical Discomfort or Pain: How confident are you that you can keep the physical discomfort or pain of your disease from interfering with the things you want to do? Select Number: 5 Emotional Distress: How confident are you that you can keep the emotional distress caused by your disease from interfering with the things you want to do? Select Number: 5 Other Symptoms or Health Problems: How confident are you that you can keep other symptoms or health problems from interfering with the things you want to do? Select Number: 5 Different Tasks and Activities: How confident are you that you can do the different tasks and activities needed to manage your health condition so as to reduce your need to see a doctor? Select Number: 5 Medication: How confident are you that you can do things other than just taking medication to reduce how much your illness affects your everyday life? Select Number: 5 Total Score:: 5 Nutrition Survey - Nutrition Survey Instructions Scoring Instructions: Scoring is as follows: Yes = 1 points. No = 0 point. Patient score that is >/=12 is considered to be at potential nutritional risk and could benefit from a referral to a registered dietitian. - Nutrition Survey Initial Have you lost >10 lbs over the past 2 months without trying?: Yes Are you following a special diet at home for diabetes, low fat, or low salt?: Yes Are you interested in meeting with a dietitian for help understanding your diet?: Yes Do you eat less than 3 meals a day?: Yes Do you eat fatty meats (frost, sausage, ribs, etc), fried foods, desserts, large amounts of salad dressings, margarine, butter, or cheese most days?: Yes Do you have food allergies? [Enter types in comment field]: No Do you eat in restaurants more than 3 times a week?: No Do you season food with salt, seasoning salt, or garlic salt?: No Do you used canned, boxed, frozen meals, or soups, seasoning packets?: No Total Score:: 5
[2018-03-31 14:10] VITALS: BP 118/50
== END ==
PROVIDERS: Referring Provider Internal Medicine Cardiovascular Disease; Visit Provider Internal Medicine Cardiovascular Disease
DX: I25.118 Atherosclerotic heart disease of native coronary artery with other forms of angina pectoris (principal); I27.20 Pulmonary hypertension, unspecified; I25.2 Old myocardial infarction; I50.9 Heart failure, unspecified; G47.33 Obstructive sleep apnea (adult) (pediatric); E78.5 Hyperlipidemia, unspecified; F32.9 Major depressive disorder, single episode, unspecified; M19.90 Unspecified osteoarthritis, unspecified site; J44.9 Chronic obstructive pulmonary disease, unspecified; E11.9 Type 2 diabetes mellitus without complications; Z95.5 Presence of coronary angioplasty implant and graft; Z90.49 Acquired absence of other specified parts of digestive tract; Z79.4 Long term (current) use of insulin; Z79.82 Long term (current) use of aspirin; Z79.02 Long term (current) use of antithrombotics/antiplatelets; Z79.899 Other long term (current) drug therapy

== ENCOUNTER 2018-04-21 14:15 | Outpatient (RCR) | payer MEDICARE, OTHER, SELFPAY ==
[2018-02-18 14:17] VITALS: BMI 36.7
== END 2018-04-21 23:59 ==
LOC: CR 14:15
PROVIDERS: Referring Provider Internal Medicine Cardiovascular Disease; Visit Provider Internal Medicine Cardiovascular Disease
DX: Z95.5 Presence of coronary angioplasty implant and graft (principal); I25.2 Old myocardial infarction
CPT/HCPCS: 93798

== ENCOUNTER 2018-05-21 14:15 | Outpatient (RCR) | payer MEDICARE, OTHER, SELFPAY ==
[2018-02-18 14:17] VITALS: BMI 36.7
[2018-05-03 07:40] VITALS: BP 134/58; BP 160/92
--- NOTE | 2018-05-03 07:40 | CR.ITP_ITS ---
Exercise - 30-day Assessment - Visit Date of Eval: 05/03/18 Session #:: 9 - Stages of Change Stages of Change:: Action - Exercise Prescription Mode:: Biodyne, NuStep, Arm Ergometer Frequency (x/week): 3 Duration:: 35 METs - Progression: 0.5-1 MET as tolerated: 2.5 Target Heart Rate:: 100-107 w/max HR 94 - Hypertension Resting Blood Pressure:: 134/58 Peak Exercise Blood Pressure:: 160/92 Medication Changes:: No - Intervention Home Exercise/Activity Goal:: Sitting Time <3 hrs/day - Education Goals:: Warm-up, RPE JENNIFER Scale, S/S, Safe Exercise, Self-Monitoring - Exercise Program Goals Exercise Program Goals: Aerobic Activity >30 min Nutrition - 30-Day Assessment - Program Goals Nutrition Program Goals: LDL <70. Total Cholesterol <200. HDL >45. Triglycerides <150. HgbA1C <7%. BMI <25 - Visit Date of Eval: 05/03/18 - Stages of Change Stages of Change:: Action - Lipids Has the patient seen the dietitian?: No - Diabetes Diabetes:: No - Weight Management Weight:: 169 lb - gained 4 pounds - Intervention Referral to dietitian:: No Will attend diet classes:: Yes - Education Attended class for:: Healthy eating Tobacco - 30-Day Assessment - Program Goals Tobacco Program Goals: Complete smoking cessation. Attend education classes. Improve Knowledge Test score - Stage of Change Stages of Change:: Action - Learning Barriers Learning Barriers: Participates in education - Family Support Do you have family support?: Yes - Tobacco Use Tobacco Use: Non-smoker Do you use smokeless tobacco?: No - Intervention Education Schedule Given:: Yes - Education Attended class for:: Coronary artery disease, Risk factors, Sexuality, Medical compliance, Cardiac A&P, Angina signs & symptoms Psychosocial - Initial Assess - Target Goals Target Goals: Assess presence or absence of depression. Using a valid screening tool, maximizes coping skills. Positive support system - Psychosocial Test Tool Used:: HANDS Depression Questionnaire - Assistive Devices Fall Risk Assessed:: Yes - no treadmill Psychosocial - 30-Day Assess - Target Goals Target Goals: Assess presence or absence of depression. Using a valid screening tool, maximizes coping skills. Positive support system - Stages of Change Stages of Change:: Action - Psychosocial Test Tool Used:: HANDS Depression Questionnaire - Intervention PS - Interventions: Yes Attend Stress Management Classes, No Referral to Mental Health, No Referral to [facility] Case Management, No Referral to Physician, No Uses Stress Management Skills - Education Attended classes for:: Coping techniques, Signs & symptoms of depression, Stress management, Relaxation techniques - Patient/Program Goal Preventative Medication(s):: Aspirin, Clopidogrel, Beta eliana, Statin/lipid - Assistive Devices Assistive Devices:: Walker Fall Risk Assessed:: Yes Patient Health Questionnaire 60-Day Re-eval Assessment 1. Little interest or pleasure in doing things: Several days 2. Feeling down, depressed, or hopeless: Several days 3. Trouble falling or staying asleep, or sleeping too much: More than half the days 4. Feeling tired or having little energy: Several days 5. Poor appetite or overeating: Not at all 6. Feeling bad about yourself -- or that you are a failure or have let yourself or your family down: Not at all 7. Trouble concentrating on things, such as reading the newspaper or watching television: Several days 8. Moving or speaking so slowly that other people could have noticed. Or the opposite - being so fidgety or restless that you have been moving around a lot more than usual: Not at all 9. Thoughts that you would be better off , or of hurting yourself in some way: Several days - Patient had an vist with [facility] How difficult have these problems made it for you to do your work, take care of things at home, or get along with other people?: Somewhat difficult Total Score: 7 Self-Efficacy 60-Day Re-eval Assessment We would like to know how confident you are in doing certain activities. Please select your confidence level for:: Select your confidence level for the following using the scale 1-10 where 1 is not at all confident and 10 is totally confident. Your score is the average of all 6 responses. Fatigue: How confident are you that you can keep the fatigue caused by your disease from interfering with the things you want to do? Select Number: 6 Physical Discomfort or Pain: How confident are you that you can keep the physical discomfort or pain of your disease from interfering with the things you want to do? Select Number: 7 Emotional Distress: How confident are you that you can keep the emotional distress caused by your disease from interfering with the things you want to do? Select Number: 7 Other Symptoms or Health Problems: How confident are you that you can keep other symptoms or health problems from interfering with the things you want to do? Select Number: 6 Different Tasks and Activities: How confident are you that you can do the different tasks and activities needed to manage your health condition so as to reduce your need to see a doctor? Select Number: 7 Medication: How confident are you that you can do things other than just taking medication to reduce how much your illness affects your everyday life? Select Number: 8 Total Score:: 6
== END 2018-05-21 23:59 ==
LOC: CR 14:15
PROVIDERS: Referring Provider Internal Medicine Cardiovascular Disease; Visit Provider Internal Medicine Cardiovascular Disease
DX: Z95.5 Presence of coronary angioplasty implant and graft (principal); I25.2 Old myocardial infarction
CPT/HCPCS: 93798

== ENCOUNTER 2018-06-21 14:15 | Outpatient (RCR) | payer MEDICARE, OTHER, SELFPAY ==
[2018-02-18 14:17] VITALS: BMI 36.7
[2018-04-01 11:37] VITALS: BMI 39.7
[2018-05-22 01:37] VITALS: BP 134/58; BP 160/92
--- NOTE | 2018-05-31 09:21 | PCM.CR.ITP ---
General Information - General Information Admitting Diagnosis: PCI W/coronary stent placement - Education/Goals Barriers to Learning: None Cardiac Rehabilitation Goals: 1. Maintain the individual as the primary focus of care. 2. To improve the patient's quality of life. 3. Identification of cardiac risk factors and provide cardiac risk factor management. 4. Enhance the psychosocial status of the patient. 5. Reconditioning enough to allow the patient to resume customary activities. 6. Control symptoms of cardiac disease Scale for measuring improvement of personal goals: Enter appropriate number in Comments. 2 = Unchanged. 3 = Slightly Better. 4 = Moderate Improvement. 5 = Met my Goal Exercise - 60-Day Assessment - Visit Date of Eval: 05/31/18 Session #:: 20 - Stages of Change Stages of Change:: Action - Exercise Prescription Mode:: Biodyne, NuStep, Arm Ergometer Frequency (x/week): 3 Duration:: 35 METs: 3 Target Heart Rate:: 100-107 Max HR 117 - Hypertension Resting Blood Pressure:: 142/52 Peak Exercise Blood Pressure:: 156/78 - Intervention Home Exercise/Activity Goal:: Sitting Time <3 hrs/day - Education Goals:: Warm-up, RPE JENNIFER Scale, S/S, Safe Exercise, Self-Monitoring - Exercise Program Goals Exercise Program Goals: Aerobic Activity >30 min, B/P <130/80 Nutrition - 60-Day Assessment - Program Goals Nutrition Program Goals: LDL <70. Total Cholesterol <200. HDL >45. Triglycerides <150. HgbA1C <7%. BMI <25 - Visit Date of Eval: 05/31/18 - Stages of Change Stages of Change:: Action - Diabetes Diabetes:: Yes Non-Insulin Dependent?: Yes - Weight Management Weight:: 78.018 kg - Intervention Referral to dietitian:: No Referral to Diabetic Clinic:: No Will attend diet classes:: Yes - Education Attended class for:: Signs & symptoms of hypoglycemia, Signs & symptoms of hyperglycemia, Relate diabetes to coronary artery disease, Healthy eating Tobacco - 60-Day Assessment - Program Goals Tobacco Program Goals: Complete smoking cessation. Attend education classes. Improve Knowledge Test score - Stage of Change Stages of Change:: Action - Learning Barriers Learning Barriers: Participates in education - Family Support Do you have family support?: Yes - Tobacco Use Tobacco Use: Non-smoker - Intervention Smoking Cessation Referral:: No Individual Education/Counseling:: No Education Schedule Given:: Yes - Education Attended class for:: Tobacco triggers, Coronary artery disease, Risk factors, Sexuality, Medical compliance, Cardiac A&P, Angina signs & symptoms Psychosocial - Initial Assess - Target Goals Target Goals: Assess presence or absence of depression. Using a valid screening tool, maximizes coping skills. Positive support system - Psychosocial Test Tool Used:: HANDS Depression Questionnaire - Assistive Devices Fall Risk Assessed:: Yes Psychosocial - 60-Day Assess - Target Goals Target Goals: Assess presence or absence of depression. Using a valid screening tool, maximizes coping skills. Positive support system - Stages of Change Stages of Change:: Action - Psychosocial Test Tool Used:: HANDS Depression Questionnaire - Intervention PS - Interventions: Yes Attend Stress Management Classes, Yes Uses Stress Management Skills, No Referral to Mental Health, No Referral to [facility] Case Management, No Referral to Physician - Education Attended classes for:: Coping techniques, Signs & symptoms of depression, Stress management, Relaxation techniques - Assistive Devices Assistive Devices:: Walker Fall Risk Assessed:: Yes Patient Health Questionnaire 60-Day Re-eval Assessment 1. Little interest or pleasure in doing things: Several days 2. Feeling down, depressed, or hopeless: Several days 3. Trouble falling or staying asleep, or sleeping too much: More than half the days 4. Feeling tired or having little energy: Several days 5. Poor appetite or overeating: Not at all 6. Feeling bad about yourself -- or that you are a failure or have let yourself or your family down: Not at all 7. Trouble concentrating on things, such as reading the newspaper or watching television: Several days 8. Moving or speaking so slowly that other people could have noticed. Or the opposite - being so fidgety or restless that you have been moving around a lot more than usual: Not at all 9. Thoughts that you would be better off , or of hurting yourself in some way: Several days - pt had a visit with mental health. Total Score: 7 Self-Efficacy 60-Day Re-eval Assessment We would like to know how confident you are in doing certain activities. Please select your confidence level for:: Select your confidence level for the following using the scale 1-10 where 1 is not at all confident and 10 is totally confident. Your score is the average of all 6 responses. Fatigue: How confident are you that you can keep the fatigue caused by your disease from interfering with the things you want to do? Select Number: 6 Physical Discomfort or Pain: How confident are you that you can keep the physical discomfort or pain of your disease from interfering with the things you want to do? Select Number: 7 Emotional Distress: How confident are you that you can keep the emotional distress caused by your disease from interfering with the things you want to do? Select Number: 7 Other Symptoms or Health Problems: How confident are you that you can keep other symptoms or health problems from interfering with the things you want to do? Select Number: 6 Different Tasks and Activities: How confident are you that you can do the different tasks and activities needed to manage your health condition so as to reduce your need to see a doctor? Select Number: 7 Medication: How confident are you that you can do things other than just taking medication to reduce how much your illness affects your everyday life? Select Number: 8 Total Score:: 6
[2018-05-31 09:27] VITALS: BP 142/52; BP 156/78
== END 2018-06-21 23:59 ==
LOC: CR 14:15
PROVIDERS: Referring Provider Internal Medicine Cardiovascular Disease; Visit Provider Internal Medicine Cardiovascular Disease
DX: Z95.5 Presence of coronary angioplasty implant and graft (principal); I25.2 Old myocardial infarction
CPT/HCPCS: 93798

== ENCOUNTER 2018-07-07 14:15 | Outpatient (RCR) | payer MEDICARE, OTHER, SELFPAY ==
[2018-02-18 14:17] VITALS: BMI 36.7
[2018-04-01 11:37] VITALS: BMI 39.7
[2018-06-22 01:06] VITALS: BP 142/52; BP 156/78
== END 2018-07-07 14:20 | disposition home or self-care (01) ==
LOC: CR 14:15
PROVIDERS: Referring Provider Internal Medicine Cardiovascular Disease; Visit Provider Internal Medicine Cardiovascular Disease
DX: Z95.5 Presence of coronary angioplasty implant and graft (principal); I25.2 Old myocardial infarction
CPT/HCPCS: 93798